=== PATIENT | male | born 1960 | race American Indian/Alaskan Native ===

== ENCOUNTER 2021-03-30 17:54 | Inpatient (IN) | payer MEDICAID ==
--- NOTE | 2021-03-30 19:36 | Emergency Department Report ---
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 Arm appears contracted and on arrival paramedics stated that he was to be evaluated for the contraction. Was a prolonged period of time approximately hour and a half before able to get the patient into the room. On my assessment the patient although unable to speak was able to shake his head yes and no appropriately. He was able to motion that at 5PM he has no longer been able to raise his left arm. He can move his fingers. We have confirmed with the patient's sister over the phone that yesterday he was able to move his left upper extremity with no issue. Code stroke was ordered after my asse ssment. There is no evidence of any cough cold congestion fevers chills nausea or vomiting. Patient did shake his head that he has a mild headache posteriorly. sister states that he walks with a walker and was last seen in the kitchen [id number] and had gotten there unassisted with his walker. - Related Data Home Medications: Home Medications Medication Instructions Recorded Confirmed Last Taken Amlodipine Besylate [Norvasc] 5 mg PO QDAY 03/30/21 03/30/21 Unknown Aspirin [Adult Aspirin] 81 mg PO QDAY 03/30/21 03/30/21 Unknown AtorvaSTATin [Lipitor] 20 mg PO QHS 03/30/21 03/30/21 Unknown Butalb/Acetaminophen/Caffeine 1 each PO QDAY 03/30/21 03/30/21 Unknown [Syhbrl-Oedyxkoz-Zrlt 50-325-40] Citalopram [celeXA] 10 mg PO QDAY 03/30/21 03/30/21 Unknown Mecobalamin [B12 Active] 1,000 mcg PO QDAY 03/30/21 03/30/21 Unknown Metoprolol Xl [Metoprolol 100 mg PO QDAY 03/30/21 03/30/21 Unknown SUCCINATE ER TAB] Oxybutynin [Ditropan] 5 mg PO BID 03/30/21 03/30/21 Unknown lisinopriL [Zestril TAB] 40 mg PO QDAY 03/30/21 03/30/21 Unknown Allergies/Adverse Reactions: Allergies Allergy/AdvReac Type Severity Reaction Status Date / Time No Known Allergies Allergy Verified 03/30/21 20:15 ED Review of Systems ROS: Stated complaint: LEFT ARM CONTRACTION/DIFF MOVING Other details as noted in HPI Comment: All other systems reviewed and negative ED Past Medical Hx - Past Medical History Hx Hypertension: Yes Hx Heart Attack/AMI: Yes Hx Congestive Heart Failure: No Hx Diabetes: No Hx Liver Disease: No Hx Asthma: No Hx COPD: No - Surgical History Hx Coronary Stent: Yes - Social History Smoking Status: Former Smoker - Medications Home Medications: Home Medications Medication Instructions Recorded Confirmed Last Taken Type Amlodipine Besylate [Norvasc] 5 mg PO QDAY 03/30/21 03/30/21 Unknown History Aspirin [Adult Aspirin] 81 mg PO QDAY 03/30/21 03/30/21 Unknown History AtorvaSTATin [Lipitor] 20 mg PO QHS 03/30/21 03/30/21 Unknown History Butalb/Acetaminophen/Caffeine 1 each PO QDAY 03/30/21 03/30/21 Unknown History [Jawcsy-Vgdkooqs-Wkun 50-325-40] Citalopram [celeXA] 10 mg PO QDAY 03/30/21 03/30/21 Unknown History Mecobalamin [B12 Active] 1,000 mcg PO QDAY 03/30/21 03/30/21 Unknown History Metoprolol Xl [Metoprolol 100 mg PO QDAY 03/30/21 03/30/21 Unknown History SUCCINATE ER TAB] Oxybutynin [Ditropan] 5 mg PO BID 03/30/21 03/30/21 Unknown History lisinopriL [Zestril TAB] 40 mg PO QDAY 03/30/21 03/30/21 Unknown History ED Neuro Physical Exam - General Limitations: Language Barrier, Physical Limitation General appearance: alert, in no apparent distress Suspected Stroke: Yes - Head Head exam: Present: atraumatic, normocephalic - Eye Eye exam: Present: normal appearance, PERRL, EOMI - ENT ENT exam: Present: normal orophraynx, mucous membranes moist - Neck Neck exam: Present: normal inspection - Respiratory Respiratory exam: Present: normal lung sounds bilaterally. Absent: respiratory distress, wheezes, rales, rhonchi - Cardiovascular Cardiovascular Exam: Present: regular rate, normal rhythm, normal heart sounds. Absent: systolic murmur, diastolic murmur, rubs, gallop - GI/Abdominal GI/Abdominal exam: Present: soft, normal bowel sounds. Absent: distended, tenderness, guarding, rebound - Rectal Rectal exam: Present: deferred - Extremities Exam Extremities exam: Present: normal inspection - Expanded Upper Extremity Exam Left Neuro motor exam: Present: other (Patient is elbow held at approximately 90 degrees. Appears to have some resistance to extending and flexing passively. Patient is able to spontaneously move all of his fingers.) Vascular: Present: normal capillary refill. Absent: vascular compromise - Back Exam Back exam: Present: normal inspection - Neurological Exam Neurological exam: Present: alert, motor sensory deficit. Absent: CN II-XII intact (mild left facial droop, chronic) - NIHSS Assessment Interval: Baseline 1a. Level of Consciousness: alert/keenly responsive 1b. LOC Questions: answers both correctly 1c. LOC Commands: performs tasks correctly 2. Best Gaze: normal 3. Visual: no visual loss 4. Facial Palsy: minor paralysis 5b. Motor Arm Right: no drift 5a. Motor Arm Left: some gravity effort 6a. Motor Leg Left: no gravity effort 6b. Motor Leg Right: no drift 7. Limb Ataxia: absent 8. Sensory: normal 9. Best Language: severe aphasia 10. Dysarthria: mild/moderate dysarthria 11. Extinction/Inattention: no abnormality Total Score: 9 Stroke Severity: Moderate Stroke - Psychiatric Psychiatric exam: Present: normal affect, normal mood - Skin Skin exam: Present: warm, dry, intact, normal color. Absent: rash ED Course Vital Signs 03/30/21 20:22 Respiratory 18 Rate - Reevaluation(s) Reevaluation #1: 03/30/21 20:15 Patient is motioning that his symptoms started at 5 PM however both the telemetry neurologist and radiologist both agree that he does have acute changes to the CT however they are likely greater than 2 hours (and likely greater than 6 hours). CTA has been ordered. 03/30/21 20:20 per the tele Neuro note # Plan Thrombolytic/Intervention: NOT IV Thrombolytic or IA Intervention Thrombolytic Exclusion: subacute stroke on head CT Intraarterial Exclusion: unfavorable imaging/hypodensity Labs: hemoglobin A1c lipid panel Imaging: (urgency: STAT): CT Angiogram Head and CT Angiogram Neck AND call back with results if abnormal Imaging: (urgency: routine): MRI Brain without contrast Diagnostic Test: echo with bubble study Therapy/Evaluation: NPO until swallow evaluation PT/OT evaluation speech/swallow consultation Medication: aspirin 325 mg daily start statin with goal of LDL < 70 Other: permissive hypertension telemetry monitoring I have discussed my recommendations with the referring provider Disposition: admit Reevaluation #2: 03/30/21 22:[address] angio of the head neck returned I spoke with Dr. SINGER with [facility] is interventional team. The CTAs were reviewed. Interventionalists believe that it would cause more harm than good doing an intervention on the patient since his internal carotid. Still stenosed. Patient to stay here for medical management. - Lab Data Result diagrams: 03/30/21 19:58 03/30/21 19:58 Lab Results 03/30/21 03/30/21 03/30/21 Range/Units 19:58 19:58 19:58 WBC 11.4 H (4.5-11.0) K/mm3 RBC 4.48 (3.65-5.03) M/mm3 Hgb 14.1 (11.8-15.2) gm/dl Hct 42.2 (35.5-45.6) % MCV 94 (84-94) fl MCH 31 (28-32) pg MCHC 33 (32-34) % RDW 13.8 (13.2-15.2) % Plt Count 209 (140-440) K/mm3 Lymph % (Auto) 27.2 (13.4-35.0) % Floyd % (Auto) 10.1 H (0.0-7.3) % Eos % (Auto) 0.0 (0.0-4.3) % Baso % (Auto) 0.3 (0.0-1.8) % Lymph # (Auto) 3.1 (1.2-5.4) K/mm3 Floyd # (Auto) 1.2 H (0.0-0.8) K/mm3 Eos # (Auto) 0.0 (0.0-0.4) K/mm3 Baso # (Auto) 0.0 (0.0-0.1) K/mm3 Seg Neutrophils % 62.4 (40.0-70.0) % Seg Neutrophils # 7.1 (1.8-7.7) K/mm3 PT 14.7 (12.2-14.9) Sec. INR 1.09 (0.87-1.13) APTT 27.6 (24.2-36.6) Sec. Thrombin Time 18.9 (15.1-19.6) Sec. Sodium 138 (137-145) mmol/L Potassium 4.7 (3.6-5.0) mmol/L Chloride 102.5 (98-107) mmol/L Carbon Dioxide 24 (22-30) mmol/L Anion Gap 16 mmol/L BUN 31 H (9-20) mg/dL Creatinine 1.4 H (0.8-1.3) mg/dL Estimated GFR > 60 ml/min BUN/Creatinine Ratio 22 % Glucose 95 (75-100) mg/dL POC Glucose (70-105) mg/dL Calcium 8.9 (8.4-10.2) mg/dL Total Creatine Kinase (55-170) units/L CK-MB (CK-2) (0.0-4.0) ng/mL CK-MB (CK-2) Rel Index (0-4) Troponin T (0.00-0.029) ng/mL 03/30/21 03/30/21 Range/Units 19:58 19:59 WBC (4.5-11.0) K/mm3 RBC (3.65-5.03) M/mm3 Hgb (11.8-15.2) gm/dl Hct (35.5-45.6) % MCV (84-94) fl MCH (28-32) pg MCHC (32-34) % RDW (13.2-15.2) % Plt Count (140-440) K/mm3 Lymph % (Auto) (13.4-35.0) % Floyd % (Auto) (0.0-7.3) % Eos % (Auto) (0.0-4.3) % Baso % (Auto) (0.0-1.8) % Lymph # (Auto) (1.2-5.4) K/mm3 Floyd # (Auto) (0.0-0.8) K/mm3 Eos # (Auto) (0.0-0.4) K/mm3 Baso # (Auto) (0.0-0.1) K/mm3 Seg Neutrophils % (40.0-70.0) % Seg Neutrophils # (1.8-7.7) K/mm3 PT (12.2-14.9) Sec. INR (0.87-1.13) APTT (24.2-36.6) Sec. Thrombin Time (15.1-19.6) Sec. Sodium (137-145) mmol/L Potassium (3.6-5.0) mmol/L Chloride (98-107) mmol/L Carbon Dioxide (22-30) mmol/L Anion Gap mmol/L BUN (9-20) mg/dL Creatinine (0.8-1.3) mg/dL Estimated GFR ml/min BUN/Creatinine Ratio % Glucose (75-100) mg/dL POC Glucose 90 (70-105) mg/dL Calcium (8.4-10.2) mg/dL Total Creatine Kinase 498 H (55-170) units/L CK-MB (CK-2) 5.0 H (0.0-4.0) ng/mL CK-MB (CK-2) Rel Index 1.0 (0-4) Troponin T < 0.010 (0.00-0.029) ng/mL - EKG Data -: EKG Interpreted by 03/30/21 20:20 EKG shows a sinus rhythm rate 84. [place] is normal. Intervals show slight prolongation to the [place]. No ST segment elevation or depressions. Time interpretation 2004 - Radiology Data CT head/brain wo con INDICATION / CLINICAL INFORMATION: 60 years Male; code stroke. TECHNIQUE: Routine CT head without contrast. All CT scans at this location are performed using CT dose reduction for ALARA by means of automated exposure control. COMPARISON: None. FINDINGS: BRAIN / INTRACRANIAL CONTENTS: There is extensive edema involving anterior right frontal lobe, particularly along the medial aspect within the anterior cerebral artery distribution indicative of acute infarct. There is associated mass effect with mild sulcal effacement. There foci of encephalomalacia involving the more superior right frontal lobe indicative of old infarcts at. Focus is also seen along the genu of the right corpus of callosum. There is an old lacunar infarct within the right basal ganglia. There are also chronic appearing ischemic changes involving the posterior left frontal lobe at. There is mild to moderate cerebral atrophy for age with mild prominence of the ventricular system. There is no clear CT evidence of acute intracranial hemorrhage. ORBITS: There is a defect involving medial right orbital wall which may be developmental or related to previous trauma. SINUSES / MASTOIDS: There is mild mucosal thickening within the visualized posterior left maxillary sinus with thickening of the lesser sinus wall indicative of chronic inflammatory process at. Otherwise, the visualized paranasal sinuses are clear. CRANIOCERVICAL JUNCTION: No significant abnormality. ADDITIONAL FINDINGS: There is notable atherosclerotic calcification within the distal ICAs. IMPRESSION: 1. There is extensive edema involving the anteromedial right frontal lobe keiht cative of evolving infarct along the right LACEY distribution as detailed above. 2. There is otherwise microvascular angiopathy with multiple old infarcts, also a described above. There is no clear CT evidence of acute intracranial hemorrhage. The study was specified as code stroke and called emergently to Dr. Foster in the ER at 7:11 PM Central standard time. Signer Name: Kiran De Jesus MD Signed: 03/30/2021 8:13 PM Workstation Name: [id number] Ordering Physician: ALLISON FOSTER MD Date of Service: 03/30/21 Procedure(s): CT angio neck Accession Number(s): [id number] cc: ALLISON FOSTER MD CT angio neck INDICATION / CLINICAL INFORMATION: 60 years Male; left arm weakness. TECHNIQUE: Thin cut axial images obtained through the head during IV bolus contrast administration. Sagittal, coronal, and 3 plane MIP reconstructions performed by the technologist. NASCET type criteria used evaluate stenoses. All CT scans at this location are performed using CT dose reduction for ALARA by means of automated exposure control. COMPARISON: None available. FINDINGS: CAROTID ARTERIES: There is notable tapering of the proximal right ICA with 1.2 cm segment of marked stenosis. Additionally, there is near complete occlusion at the level just distal to the right car otid bulb. However, there is a flow within the more distal segments though there is notable reduced caliber. There is milder irregularity of the right carotid bifurcation. There is atherosclerotic calcification involving left carotid bifurcation without significant stenosis by NASCET criteria. The more distal cervical left ICA is unremarkable. VERTEBRAL ARTERIES: The left vertebral artery appears to arise directly from the aortic arch; a developmental variant. 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 The right vertebral artery is clearly dominant. There are scattered foci of calcification within the right vertebral artery without significant focal stenosis. ARCH: There is developmental tortuosity of the arch of vessels as well as common origin of the brachiocephalic and left common carotid arteries. However, there is no significant focal stenosis. ADDITIONAL FINDINGS: Remainder of the surrounding soft tissues are grossly normal. IMPRESSION: There is marked stenosis involving proximal right ICA with decreased flow within the more distal segments as detailed above. There is atherosclerotic calcification involving left carotid bifurcation without ossific and stenosis by NASCET criteria. 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 Signer Name: Kiran De Jesus MD Signed: 03/30/2021 8:36 PM Workstation Name: [id number] CT angio head INDICATION / CLINICAL INFORMATION: 60 years Male; left arm weakness. TECHNIQUE: Thin cut axial images obtained through the head during IV bolus contrast administration. Sagittal, coronal, and 3 plane MIP reconstructions performed by the technologist. NASCET type criteria used evaluate stenoses. Automated exposure control utilized for radiation reduction purposes. COMPARISON: None available. FINDINGS: INTERNAL CAROTID ARTERIES: There is occlusion of the distal right ICA with notable atherosclerotic calcification. Faint contrast with notable decrease caliber seen within the more proximal cavernous and petrous segments of the right ICA. There is mild atherosclerotic calcification involving distal left ICA with mild narrowing of the communicating segment. VERTEBROBASILAR SYSTEM: There is developmental hypoplasia of the visualized distal left vertebral artery which terminates in PICA, a developmental variant. There is milder atherosclerotic plaque involving intracranial right vertebral artery with mild stenosis at. There is no significant focal narrowing involving the basilar artery. CEREBRAL ARTERIES: There is occlusion of the right LACEY with large developing infarct which correlates with the earlier CT demonstrating extensive edema within the right LACEY distribution. There is also occlusion of the proximal right MCA at. However, collateral of flow is noted within the right insular branches. There is marked stenosis involving the M1 segment of the left MCA with suggestion of focal occlusion along the mid to distal aspect. However, this finding may be a chronic given the prominence of collateral vessels in this region and correlation would be needed at. There is notable irregularity of the visualized left insular branches. There is developmental hypoplasia of the P1 segment of the left BLUEPRINT BLOCKER. Otherwise, there is irregularity of the posterior cerebral arteries indicative of mild atherosclerotic disease. Similar findings involve the left LACEY without significant focal stenosis. ANEURYSM: None identified. ADDITIONAL FINDINGS: Remainder of the surrounding soft tissues are grossly normal. IMPRESSION: There is occlusion of the distal right ICA and LACEY with evolving infarct as detailed above. The findings are also compatible with occlusion of the proximal right MCA with collateral flow distally as described. There is marked stenosis involving the left MCA with notable adjacent a c ollateral vessels. 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 A small focal narrowing involving proximal intracranial right vertebral artery. Critical Care Time: Yes (40) Critical care attestation.: If time is entered above; I have spent that time in minutes in the direct care of this critically ill patient, excluding procedure time. ED Disposition Clinical Impression: Acute CVA (cerebrovascular accident) Disposition: [id number] OP ADMIT IP TO THIS HOSP Is pt being admited?: Yes Does the pt Need Aspirin: No Condition: Stable Time of Disposition: 22:31
--- NOTE | 2021-03-30 19:52 | Consultation ---
History of Present Illness History of present illness: [facility] Consult Note # Demographics Consult Type: Acute Stroke Level 1 (0-4.5 hrs) Patient Location: Emergency Room First Name: Andrade Last Name: aPul Date of : 1960 Age: 60 Gender: Male Time of Initial Page ( Time): 03/30/2021, 19:36 Time of Return Call ( Time): 03/30/2021, 19:36 # HPI History: 60 year-old male presents with left arm weakness. Symptoms reportedly began at [address] revealed a subacute right frontal ischemic stroke. # Scores Time of exam and NIHSS ( Time): 03/30/2021, 19:39 Level of Consciousness 1a: [0] = Alert; keenly responsive LOC Questions 1b: [0] = Answers both questions correctly LOC Commands 1c: [0] = Performs both tasks correctly Best Gaze 2: [0] = Normal Visual 3: [0] = No visual loss Facial Palsy 4: [1] = Minor paralysis Motor Arm Left 5a: [1] = Drift Motor Arm Right 5b: [0] = No drift Motor Leg Left 6a: [2] = Some effort against gravity Motor Leg Right 6b: [0] = No drift Limb Ataxia 7: [0] = Absent Sensory 8: [0] = Normal Best Language 9: [1] = Zhih-is-gchyuqyi aphasia Dysarthria 10: [2] = Severe dysarthria Extinction and Inattention 11: [0] = No abnormality NIHSS Total: 7 # Exam Vitals: vital signs reviewed # PMH-FH-SH Past Medical History: stroke Medications: aspirin # Data Head CT: subacute ischemic stroke # Assessment Impression: Ischemic Stroke (Subacute) # Plan Thrombolytic/Intervention: NOT IV Thrombolytic or IA Intervention Thrombolytic Exclusion: subacute stroke on head CT Intraarterial Exclusion: unfavorable imaging/hypodensity Labs: hemoglobin A1c lipid panel Imaging: (urgency: STAT): CT Angiogram Head and CT Angiogram Neck AND call back with results if abnormal Imaging: (urgency: routine): MRI Brain without contrast Diagnostic Test: echo with bubble study Therapy/Evaluation: NPO until swallow evaluation PT/OT evaluation speech/swallow consultation Medication: aspirin 325 mg daily start statin with goal of LDL < 70 Other: permissive hypertension telemetry monitoring I have discussed my recommendations with the referring provider Disposition: admit Medications and Allergies Allergies Allergy/AdvReac Type Severity Reaction Status Date / Time No Known Allergies Allergy Verified 06/23/14 08:41 Home Medications Medication Instructions Recorded Confirmed Last Taken Type Aspirin [Baby Aspirin] 81 mg PO DAILY 02/15/14 06/12/15 06/11/15 History Atorvastatin (Nf) [Lipitor] 10 mg PO DAILY 02/15/14 06/12/15 06/12/15 05:00 History Citalopram Hydrobromide [celeXA] 20 mg PO HS 02/15/14 06/12/15 06/11/15 History Famotidine 20 mg PO BID 02/15/14 06/12/15 06/11/15 History Glycopyrrolate 1 mg PO DAILY 02/15/14 06/12/15 06/11/15 History Propafenone HCl 225 mg PO BID 02/15/14 06/12/15 06/11/15 History Rivaroxaban [Xarelto] 20 mg PO DAILY 02/15/14 06/12/15 06/11/15 History Sotalol HCl 80 mg PO Q12HR 02/15/14 06/12/15 06/11/15 History Zolpidem (Nf) [Ambien] 10 mg PO HS 02/15/14 06/12/15 06/11/15 History lisinopriL [Zestril TAB] 20 mg PO DAILY 02/15/14 06/12/15 06/12/15 05:00 History
[2021-03-30 20:05] LABS: Basophils % (Auto) 0.3 % (0.0-1.8); Hematocrit 42.2 % (35.5-45.6); Hemoglobin 14.1 gm/dl (11.8-15.2); Lymphocytes # (Auto) 3.1 K/mm3 (1.2-5.4); Lymphocytes % (Auto) 27.2 % (13.4-35.0); Mean Corpuscular HGB Conc 33 % (32-34); Mean Corpuscular Volume 94 fl (84-94); Monocytes # (Auto) 1.2 K/mm3 (0.0-0.8); Monocytes % (Auto) 10.1 % (0.0-7.3); Platelet Count 209 K/mm3 (140-440); Red Blood Count 4.48 M/mm3 (3.65-5.03); Red Cell Distribution Width 13.8 % (13.2-15.2)
[2021-03-30 20:16] LABS: BUN/Creatinine Ratio 22; Blood Urea Nitrogen 31 mg/dL (9-20); Calcium 8.9 mg/dL (8.4-10.2); Hemolysis Index 24
[2021-03-30] MEDS ORDERED: KETOROLAC 30 MG/1 ML INJ IV ONE (20:16)
--- NOTE | 2021-03-30 20:17 | Cat Scan Report ---
CT head/brain wo con INDICATION / CLINICAL INFORMATION: 60 years Male; code stroke. TECHNIQUE: Routine CT head without contrast. All CT scans at this location are performed using CT dos e reduction for ALARA by means of automated exposure control. COMPARISON: None. FINDINGS: BRAIN / INTRACRANIAL CONTENTS: There is extensive edema involving anterior right frontal lobe, partic ularly along the medial aspect within the anterior cerebral artery distribution indicative of acute i nfarct. There is associated mass effect with mild sulcal effacement. There foci of encephalomalacia i nvolving the more superior right frontal lobe indicative of old infarcts at. Focus is also seen along the genu of the right corpus of callosum. There is an old lacunar infarct within the right basal ganglia. There are also chronic appearing isch emic changes involving the posterior left frontal lobe at. There is mild to moderate cerebral atrophy for age with mild prominence of the ventricular system. There is no clear CT evidence of acute intra cranial hemorrhage. ORBITS: There is a defect involving medial right orbital wall which may be developmental or related t o previous trauma. SINUSES / MASTOIDS: There is mild mucosal thickening within the visualized posterior left maxillary s inus with thickening of the lesser sinus wall indicative of chronic inflammatory process at. Otherwis e, the visualized paranasal sinuses are clear. CRANIOCERVICAL JUNCTION: No significant abnormality. ADDITIONAL FINDINGS: There is notable atherosclerotic calcification within the distal ICAs. IMPRESSION: 1. There is extensive edema involving the anteromedial right frontal lobe indicative of evolving infa rct along the right LACEY distribution as detailed above. 2. There is otherwise microvascular angiopathy with multiple old infarcts, also a described above. Th ere is no clear CT evidence of acute intracranial hemorrhage. The study was specified as code stroke and called emergently to Dr. Foster in the ER at 7:11 PM [facility] standard time. Signer Name: Kiran De Jesus MD Signed: 03/30/2021 8:13 PM Workstation Name: [id number]
[2021-03-30 20:21] LABS: INR 1.09 (0.87-1.13)
[2021-03-30 20:23] LABS: Partial Thromboplastin Time 27.6 Sec. (24.2-36.6)
[2021-03-30 20:24] LABS: Thrombin Time 18.9 Sec. (15.1-19.6)
--- NOTE | 2021-03-30 20:40 | Cat Scan Report ---
CT angio neck INDICATION / CLINICAL INFORMATION: 60 years Male; left arm weakness. TECHNIQUE: Thin cut axial images obtained through the head during IV bolus contrast administration. S agittal, coronal, and 3 plane MIP reconstructions performed by the technologist. NASCET type criteria used evaluate stenoses. All CT scans at this location are performed using CT dose reduction for ALAR A by means of automated exposure control. COMPARISON: None available. FINDINGS: CAROTID ARTERIES: There is notable tapering of the proximal right ICA with 1.2 cm segment of marked s tenosis. Additionally, there is near complete occlusion at the level just distal to the right carotid bulb. However, there is a flow within the more distal segments though there is notable reduced calib er. There is milder irregularity of the right carotid bifurcation. There is atherosclerotic calcification involving left carotid bifurcation without significant stenosi s by NASCET criteria. The more distal cervical left ICA is unremarkable. VERTEBRAL ARTERIES: The left vertebral artery appears to arise directly from the aortic arch; a devel opmental variant. 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 The right vertebral artery is clearly dominant. There are scattered f oci of calcification within the right vertebral artery without significant focal stenosis. ARCH: There is developmental tortuosity of the arch of vessels as well as common origin of the brachi ocephalic and left common carotid arteries. However, there is no significant focal stenosis. ADDITIONAL FINDINGS: Remainder of the surrounding soft tissues are grossly normal. IMPRESSION: There is marked stenosis involving proximal right ICA with decreased flow within the more distal segm ents as detailed above. There is atherosclerotic calcification involving left carotid bifurcation without ossific and stenosi s by NASCET criteria. 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 Signer Name: Kiran De Jesus MD Signed: 03/30/2021 8:36 PM Workstation Name: [id number]
--- NOTE | 2021-03-30 20:49 | Cat Scan Report ---
CT angio head INDICATION / CLINICAL INFORMATION: 60 years Male; left arm weakness. TECHNIQUE: Thin cut axial images obtained through the head during IV bolus contrast administration. S agittal, coronal, and 3 plane MIP reconstructions performed by the technologist. NASCET type criteria used evaluate stenoses. Automated exposure control utilized for radiation reduction purposes. COMPARISON: None available. FINDINGS: INTERNAL CAROTID ARTERIES: There is occlusion of the distal right ICA with notable atherosclerotic ca lcification. Faint contrast with notable decrease caliber seen within the more proximal cavernous and petrous segments of the right ICA. There is mild atherosclerotic calcification involving distal left ICA with mild narrowing of the comm unicating segment. VERTEBROBASILAR SYSTEM: There is developmental hypoplasia of the visualized distal left vertebral art angelo which terminates in PICA, a developmental variant. There is milder atherosclerotic plaque involvi ng intracranial right vertebral artery with mild stenosis at. There is no significant focal narrowing involving the basilar artery. CEREBRAL ARTERIES: There is occlusion of the right LACEY with large developing infarct which correlates with the earlier CT demonstrating extensive edema within the right LACEY distribution. There is also o cclusion of the proximal right MCA at. However, collateral of flow is noted within the right insular branches. There is marked stenosis involving the M1 segment of the left MCA with suggestion of focal occlusion along the mid to distal aspect. However, this finding may be a chronic given the prominence of collat eral vessels in this region and correlation would be needed at. There is notable irregularity of the visualized left insular branches. There is developmental hypoplasia of the P1 segment of the left [employer]. Otherwise, there is irregularity of the posterior cerebral arteries indicative of mild atherosclerotic disease. Similar findings invo lve the left LACEY without significant focal stenosis. ANEURYSM: None identified. ADDITIONAL FINDINGS: Remainder of the surrounding soft tissues are grossly normal. IMPRESSION: There is occlusion of the distal right ICA and LACEY with evolving infarct as detailed above. The findings are also compatible with occlusion of the proximal right MCA with collateral flow distal ly as described. There is marked stenosis involving the left MCA with notable adjacent a collateral vessels. 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 A small foca l narrowing involving proximal intracranial right vertebral artery. Signer Name: Kiran De Jesus MD Signed: 03/30/2021 8:45 PM Workstation Name: [id number]
[2021-03-30] MEDS ORDERED: MORPHINE 2 MG/1 ML INJ IV PRN (22:48)
[2021-03-30] MEDS ORDERED: MAGNESIUM HYDROXIDE (MOM) ORAL LIQD UDC PO PRN ×2 (22:48)
[2021-03-30] MEDS ORDERED: ACETAMINOPHEN 325 MG TAB PO PRN (22:48)
[2021-03-30] MEDS ORDERED: PROMETHAZINE 25 MG RECT SUPP PR PRN (22:48)
[2021-03-30] MEDS ORDERED: ONDANSETRON 4 MG/2 ML INJ IV PRN ×2 (22:48)
[2021-03-30] MEDS ORDERED: METOCLOPRAMIDE 10 MG TAB PO PRN (22:48)
--- NOTE | 2021-03-30 23:03 | History and Physical Report ---
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 Patient was able to make gestures with his hands during this history and physical but not able to express himself. Last well-known time was about 7:30 AM. Patient however indicates that his left-sided weakness started at about 5 PM today. She denies any fever or chills, no nausea vomiting, no chest pain or shortness of breath, no abdominal pain, no diarrhea. He has had some headache which he indicates was more in his occipital region. He denies any sick contacts and no recent travel. Denies any contact with anyone with COVID-19. Patient's sister who was by the bedside was able to also provide some inform ation during this history and physical. Work-up in the emergency room today, CT scan of the head shows extensive edema involving the anteromedial right frontal lobe indicating of of evolving infarct along the right LACEY distribution. There is evidence of microvascular angiopathy with multiple old infarcts. No evidence of acute intracranial hemorrhage. CTA of the head and neck reveals occlusion of the distal right ICA and LACEY with evolving infarct .The findings are compatible with occlusion of the proximal right MCA with collateral flow distally. There is marked stenosis involving the left MCA with notable active since collateral vessels. Interventional radiology was consulted at [facility] by the ER physician. Patient is not a good candidate for any surgical intervention and the recommendation is to continue medical management in this facility. Past History Past Medical History: CAD (H/O [place]), hypertension Past Surgical History: PTCA Social history: smoking (Former Smoker) Family history: no significant family history Medications and Allergies Allergies Allergy/AdvReac Type Severity Reaction Status Date / Time No Known Allergies Allergy Verified 03/30/21 20:15 Home Medications Medication Instructions Recorded Confirmed Last Taken Type Amlodipine Besylate [Norvasc] 5 mg PO QDAY 03/30/21 03/30/21 Unknown History Aspirin [Adult Aspirin] 81 mg PO QDAY 03/30/21 03/30/21 Unknown History AtorvaSTATin [Lipitor] 20 mg PO QHS 03/30/21 03/30/21 Unknown History Butalb/Acetaminophen/Caffeine 1 each PO QDAY 03/30/21 03/30/21 Unknown History [Hhfsqi-Kippvrgx-Ipsq 50-325-40] Citalopram [celeXA] 10 mg PO QDAY 03/30/21 03/30/21 Unknown History Mecobalamin [B12 Active] 1,000 mcg PO QDAY 03/30/21 03/30/21 Unknown History Metoprolol Xl [Metoprolol 100 mg PO QDAY 03/30/21 03/30/21 Unknown History SUCCINATE ER TAB] Oxybutynin [Ditropan] 5 mg PO BID 03/30/21 03/30/21 Unknown History lisinopriL [Zestril TAB] 40 mg PO QDAY 03/30/21 03/30/21 Unknown History Active Meds: Active Medications Acetaminophen (Acetaminophen 325 Mg Tab) 650 mg PO Q4H PRN PRN Reason: Pain MILD(1-3)/Fever >100.5/CANTU Acetaminophen (Acetaminophen 325 Mg Tab) 650 mg PO Q4H PRN PRN Reason: Pain, Mild (1-3) Aspirin (Aspirin 325 Mg Tab) 325 mg PO QDAY [facility]OR[facility] Atorvastatin Calcium (Atorvastatin 40 Mg Tab) 40 mg PO QHS [facility] Bisacodyl (Bisacodyl 10 Mg Rect Supp) 10 mg ND QDAY PRN PRN Reason: Constipation Heparin Sodium (Porcine) (Heparin 5,000 Unit/1 Ml Vial) 5,000 unit SUB-Q Q8HR LORI Magnesium Hydroxide (Magnesium Hydroxide (Mom) Oral Liqd Udc) 30 ml PO Q4H PRN PRN Reason: Constipation Magnesium Hydroxide (Magnesium Hydroxide (Mom) Oral Liqd Udc) 30 ml PO Q4H PRN PRN Reason: Constipation Metoclopramide HCl (Metoclopramide 10 Mg Tab) 10 mg PO Q6H PRN PRN Reason: Nausea And Vomiting Morphine Sulfate (Morphine 2 Mg/1 Ml Inj) 2 mg IV Q4H PRN PRN Reason: Pain, Moderate (4-6) Ondansetron HCl (Ondansetron 4 Mg/2 Ml Inj) 4 mg IV Q8H PRN PRN Reason: Nausea And Vomiting Ondansetron HCl (Ondansetron 4 Mg/2 Ml Inj) 4 mg IV Q8H PRN PRN Reason: Nausea And Vomiting Promethazine HCl (Promethazine 25 Mg Rect Supp) 25 mg ND Q6H PRN PRN Reason: Nausea And Vomiting Sodium Chloride (Sodium Chloride 0.9% 10 Ml Flush Syringe) 10 ml IV BID LORI Sodium Chloride (Sodium Chloride 0.9% 10 Ml Flush Syringe) 10 ml IV PRN PRN PRN Reason: LINE FLUSH Sodium Chloride (Sodium Chloride 0.9% 10 Ml Flush Syringe) 10 ml INJ PRN PRN PRN Reason: LINE FLUSH Review of Systems Constitutional: no fever, no chills Ears, nose, mouth and throat: no nasal congestion, no sore throat Cardiovascular: no chest pain, no palpitations Respiratory: no cough, no shortness of breath Gastrointestinal: no abdominal pain, no nausea, no vomiting, no diarrhea Genitourinary Male: no dysuria, no hematuria, no nocturia Musculoskeletal: no neck pain, no low back pain Integumentary: no rash, no pruritis Neurological: weakness (Left sided weakness), no headaches, no confusion Psychiatric: no anxiety, no depression Endocrine: no polyphagia, no polydipsia, no polyuria, no nocturia Exam - Constitutional Vitals: Temp Pulse Resp BP Pulse Ox 18 03/30/21 20:22 General appearance: Present: no acute distress, well-nourished - EENT Eyes: Present: PERRL, EOM intact. Absent: scleral icterus ENT: hearing intact, clear oral mucosa, dentition normal - Neck Neck: Present: supple, normal ROM - Respiratory Respiratory effort: normal Respiratory: bilateral: CTA - Cardiovascular Rhythm: regular Heart Sounds: Present: S1 & S2. Absent: gallop, systolic murmur, diastolic murmur, rub, click - Extremities Extremities: no ischemia, pulses intact, pulses symmetrical, No edema, normal temperature, normal color, Full ROM Peripheral Pulses: within normal limits - Abdominal General gastrointestinal: Present: soft, non-tender, non-distended, normal bowel sounds. Absent: mass - Integumentary Integumentary: Present: clear, warm, dry, normal turgor. Absent: rash - Musculoskeletal Musculoskeletal: left sided weakness - Psychiatric Psychiatric: appropriate mood/affect, intact judgment & insight, cooperative - Neurologic Neurologic: CNII-XII intact - Additional findings Additional findings: Aphasic. HEART Score - HEART Score Troponin: Troponin T < 0.010 ng/mL (0.00-0.029) 03/30/21 19:58 Results - Labs CBC & Chem 7: 03/30/21 19:58 03/30/21 19:58 Labs: Abnormal lab results 03/30/21 03/30/21 03/30/21 Range/Units 19:58 19:58 19:58 WBC 11.4 H (4.5-11.0) K/mm3 [place] % (Auto) 10.1 H (0.0-7.3) % [place] # (Auto) 1.2 H (0.0-0.8) K/mm3 BUN 31 H (9-20) mg/dL Creatinine 1.4 H (0.8-1.3) mg/dL Total Creatine Kinase 498 H (55-170) units/L CK-MB (CK-2) 5.0 H (0.0-4.0) ng/mL Assessment and Plan - Patient Problems (1) Acute CVA (cerebrovascular accident) Current Visit: Yes Status: Acute Plan to address problem: Patient admitted and placed on daily aspirin and statin. We will request neurology evaluation and recommendation. We will schedule patient for MRI of the brain. (2) Hypertension Current Visit: Yes Status: Acute Plan to address problem: We will resume routine home medications and monitor vital signs closely. (3) DVT prophylaxis Current Visit: Yes Status: Acute Plan to address problem: Patient placed on subcutaneous heparin. (4) Full code status Current Visit: Yes Status: Acute Plan to address problem: Patient is full code.
[2021-03-31] MEDS: ACETAMINOPHEN 325 MG TAB PO PRN (06:00)
[2021-03-31] MEDS: HEPARIN 5,000 UNIT/1 ML VIAL SUB-Q SCH ×3 (06:01→21:28)
[2021-03-31 06:10] LABS: Basophils % (Auto) 0.2 % (0.0-1.8); Eosinophils % (Auto) 0.2 % (0.0-4.3); Lymphocytes # (Auto) 3.6 K/mm3 (1.2-5.4); Lymphocytes % (Auto) 34.6 % (13.4-35.0); Mean Corpuscular HGB Conc 34 % (32-34); Mean Corpuscular Volume 94 fl (84-94); Monocytes % (Auto) 9.5 % (0.0-7.3); Platelet Count 238 K/mm3 (140-440); Red Blood Count 4.71 M/mm3 (3.65-5.03)
[2021-03-31 06:16] LABS: INR 0.98 (0.87-1.13)
[2021-03-31 06:32] LABS: BUN/Creatinine Ratio 23; Blood Urea Nitrogen 27 mg/dL (9-20); Chol/HDL Ratio 2.93 %; HDL Cholesterol 65 mg/dL (40-59); Hemolysis Index 148; LDL Cholesterol,Direct 118 mg/dL (50-130)
--- NOTE | 2021-03-31 08:32 | Progress Note ---
Assessment and Plan Assessment and plan: Acute CVA. Hypertension History of CAD/PTCA. 03/31/2021. CT scan of the head shows extensive edema involving the anteromedial right frontal lobe indicative of evolving infarct along the right LACEY distr ibution. There is evidence of microvascular angiopathy with multiple old infarcts. No evidence of acute intracranial hemorrhage. CTA of the head and neck reveals occlusion of the distal right ICA and LACEY with evolving infarct. The findings are compatible with occlusion of the proximal right MCA with collateral flow distally. There is marked stenosis involving the left MCA with notable active since collateral vessels. Neurology consultation. PT/OT/ST. Continue aspirin and statin. History Interval history: No new issues overnight. Hospitalist Physical - Constitutional Vitals: Temp Pulse Resp BP Pulse Ox 98.8 F 80 18 128/86 98 03/31/21 04:01 03/31/21 04:01 03/31/21 04:01 03/31/21 04:01 03/31/21 04:01 General appearance: Present: no acute distress, well-nourished - EENT Eyes: Present: PERRL, EOM intact ENT: hearing intact, clear oral mucosa, dentition normal - Neck Neck: Present: supple, normal ROM - Respiratory Respiratory effort: normal Respiratory: bilateral: CTA - Cardiovascular Rhythm: regular Heart Sounds: Present: S1 & S2. Absent: gallop, rub - Extremities Extremities: no ischemia, No edema, Full ROM - Abdominal General gastrointestinal: soft, non-tender, non-distended, normal bowel sounds - Integumentary Integumentary: Present: clear, warm, dry - Neurologic Neurologic: CNII-XII intact, moves all extremities HEART Score - HEART Score Troponin: Troponin T < 0.010 ng/mL (0.00-0.029) 03/30/21 19:58 Results - Labs CBC & Chem 7: 03/31/21 05:11 03/31/21 05:11 Labs: Laboratory Last Values WBC 10.5 K/mm3 (4.5-11.0) 03/31/21 05:11 RBC 4.71 M/mm3 (3.65-5.03) 03/31/21 05:11 Hgb 15.0 gm/dl (11.8-15.2) 03/31/21 05:11 Hct 44.0 % (35.5-45.6) 03/31/21 05:11 MCV 94 fl (84-94) 03/31/21 05:11 MCH 32 pg (28-32) 03/31/21 05:11 MCHC 34 % (32-34) 03/31/21 05:11 RDW 14.0 % (13.2-15.2) 03/31/21 05:11 Plt Count 238 K/mm3 (140-440) 03/31/21 05:11 Lymph % (Auto) 34.6 % (13.4-35.0) 03/31/21 05:11 Webb % (Auto) 9.5 % (0.0-7.3) H 03/31/21 05:11 Eos % (Auto) 0.2 % (0.0-4.3) 03/31/21 05:11 Baso % (Auto) 0.2 % (0.0-1.8) 03/31/21 05:11 Lymph # (Auto) 3.6 K/mm3 (1.2-5.4) 03/31/21 05:11 Webb # (Auto) 1.0 K/mm3 (0.0-0.8) H 03/31/21 05:11 Eos # (Auto) 0.0 K/mm3 (0.0-0.4) 03/31/21 05:11 Baso # (Auto) 0.0 K/mm3 (0.0-0.1) 03/31/21 05:11 Seg Neutrophils % 55.5 % (40.0-70.0) 03/31/21 05:11 Seg Neutrophils # 5.8 K/mm3 (1.8-7.7) 03/31/21 05:11 PT 13.6 Sec. (12.2-14.9) 03/31/21 05:11 INR 0.98 (0.87-1.13) 03/31/21 05:11 APTT 27.6 Sec. (24.2-36.6) 03/30/21 19:58 Thrombin Time 18.9 Sec. (15.1-19.6) 03/30/21 19:58 Sodium 142 mmol/L (137-145) 03/31/21 05:11 Potassium 5.0 mmol/L (3.6-5.0) 03/31/21 05:11 Chloride 101.9 mmol/L (98-107) 03/31/21 05:11 Carbon Dioxide 25 mmol/L (22-30) 03/31/21 05:11 Anion Gap 20 mmol/L 03/31/21 05:11 BUN 27 mg/dL (9-20) H 03/31/21 05:11 Creatinine 1.2 mg/dL (0.8-1.3) 03/31/21 05:11 Estimated GFR > 60 ml/min 03/31/21 05:11 BUN/Creatinine Ratio 23 % 03/31/21 05:11 Glucose 89 mg/dL (75-100) 03/31/21 05:11 POC Glucose 90 mg/dL (70-105) 03/30/21 19:59 Calcium 10.0 mg/dL (8.4-10.2) 03/31/21 05:11 Total Creatine Kinase 498 units/L (55-170) H 03/30/21 19:58 CK-MB (CK-2) 5.0 ng/mL (0.0-4.0) H 03/30/21 19:58 CK-MB (CK-2) Rel Index 1.0 (0-4) 03/30/21 19:58 Troponin T < 0.010 ng/mL (0.00-0.029) 03/30/21 19:58 Triglycerides 50 mg/dL (2-149) 03/31/21 05:11 Cholesterol 191 mg/dL (50-199) 03/31/21 05:11 LDL Cholesterol Direct 118 mg/dL (50-130) 03/31/21 05:11 HDL Cholesterol 65 mg/dL (40-59) H 03/31/21 05:11 Cholesterol/HDL Ratio 2.93 % 03/31/21 05:11 Sam/IV: Voiding Method Condom Catheter Active Medications - Current Medications Current Medications: Generic Name Dose Route Start Last Admin Trade Name Freq PRN Reason Stop Dose Admin Acetaminophen 650 mg 03/30/21 22:48 03/31/21 06:00 Acetaminophen 325 Mg Tab PO 650 mg Q4H PRN Administration Pain, Mild (1-3) Aspirin 325 mg 03/31/21 10:00 Aspirin 325 Mg Tab PO QDAY [facility] Atorvastatin Calcium 40 mg 03/31/21 22:00 Atorvastatin 40 Mg Tab PO QHS [facility] Bisacodyl 10 mg 03/30/21 22:48 Bisacodyl 10 Mg Rect Supp CO QDAY PRN Constipation Heparin Sodium (Porcine) 5,000 unit 03/31/21 06:00 03/31/21 06:01 Heparin 5,000 Unit/1 Ml Vial SUB-Q 5,000 unit Q8HR LORI Administration Magnesium Hydroxide 30 ml 03/30/21 22:48 Magnesium Hydroxide (Mom) Oral Liqd Udc PO Q4H PRN Constipation Metoclopramide HCl 10 mg 03/30/21 22:48 Metoclopramide 10 Mg Tab PO Q6H PRN Nausea And Vomiting Morphine Sulfate 2 mg 03/30/21 22:48 Morphine 2 Mg/1 Ml Inj IV Q4H PRN Pain, Moderate (4-6) Ondansetron HCl 4 mg 03/30/21 22:48 Ondansetron 4 Mg/2 Ml Inj IV Q8H PRN Nausea And Vomiting Promethazine HCl 25 mg 03/30/21 22:48 Promethazine 25 Mg Rect Supp CO Q6H PRN Nausea And Vomiting Sodium Chloride 10 ml 03/31/21 10:00 Sodium Chloride 0.9% 10 Ml Flush Syringe IV BID LORI Sodium Chloride 10 ml 03/30/21 22:48 Sodium Chloride 0.9% 10 Ml Flush Syringe IV PRN PRN LINE FLUSH
[2021-03-31] MEDS: ASPIRIN 325 MG TAB PO SCH (09:26)
[2021-04-01] MEDS: HEPARIN 5,000 UNIT/1 ML VIAL SUB-Q SCH ×3 (05:08→21:23)
[2021-04-01] MEDS: ACETAMINOPHEN 325 MG TAB PO PRN ×2 (05:43→18:05)
[2021-04-01 07:45] LABS: Basophils % (Auto) 0.3 % (0.0-1.8); Eosinophils % (Auto) 0.3 % (0.0-4.3); Hematocrit 45.6 % (35.5-45.6); Hemoglobin 15.7 gm/dl (11.8-15.2); Lymphocytes # (Auto) 3.7 K/mm3 (1.2-5.4); Lymphocytes % (Auto) 33.7 % (13.4-35.0); Mean Corpuscular HGB Conc 34 % (32-34); Mean Corpuscular Volume 93 fl (84-94); Monocytes # (Auto) 0.9 K/mm3 (0.0-0.8); Platelet Count 227 K/mm3 (140-440); Red Blood Count 4.91 M/mm3 (3.65-5.03); Red Cell Distribution Width 13.9 % (13.2-15.2)
[2021-04-01 08:06] LABS: BUN/Creatinine Ratio 24; Blood Urea Nitrogen 29 mg/dL (9-20); Calcium 9.7 mg/dL (8.4-10.2); Hemolysis Index 4
--- NOTE | 2021-04-01 08:37 | Consultation ---
History of Present Illness Consult date: 04/01/21 Reason for Consult: Left side weakness and occluded R.ICA and R.LACEY History of present illness: Left sided weakness History of present illness: 60-year-old -Domin[place] male with past medical history of multiple CVAs with residual right-sided weakness and aphasia tube feeding ,brought into the emergency room today because of left-sided weakness. Patient was able to make gestures with his hands during this history and physical but not able to express himself. Last well-known time was about 7:30 AM. Patient however indicates that his left-sided weakness started at about 5 PM today. he denies any fever or chills, no nausea vomiting, no chest pain or shortness of breath, no abdominal pain, no diarrhea. He has had some headache which he indicates was more in his occipital region. He denies any sick contacts and no recent travel. Denies any contact with anyone with COVID-19. Patient's sister who was by the bedside was able to also provide some information during this history and physical. Work-up in the emergency room today, CT scan of the head shows extensive edema involving the anteromedial right frontal lobe indicating of of evolving infarct along the right LACEY distribution. There is evidence of microvascular angiopathy with multiple old infarcts. No evidence of acute intracranial hemorrhage. CTA of the head and neck reveals occlusion of the distal right ICA and LACEY with evolving infarct .The findings are compatible with occlusion of the proximal right MCA with collateral flow distally. There is marked stenosis involving the left MCA with notable active since collateral vessels. Interventional radiology was consulted at [facility] by the ER physician. Patient is not a good candidate for any surgical intervention and the recommendation is to continue medical management in this facility. Past History Past Medical History: CAD (H/O NE), hypertension Past Surgical History: PTCA Social history: smoking (Former Smoker) Family history: no significant family history Medications and Allergies Allergies Allergy/AdvReac Type Severity Reaction Status Date / Time No Known Allergies Allergy Verified 03/30/21 20:15 Home Medications Medication Instructions Recorded Confirmed Last Taken Type Amlodipine Besylate [Norvasc] 5 mg PO QDAY 03/30/21 03/30/21 Unknown History Aspirin [Adult Aspirin] 81 mg PO QDAY 03/30/21 03/30/21 Unknown History AtorvaSTATin [Lipitor] 20 mg PO QHS 03/30/21 03/30/21 Unknown History Butalb/Acetaminophen/Caffeine 1 each PO QDAY 03/30/21 03/30/21 Unknown History [Idnffe-Xfrperly-Kchw 50-325-40] Citalopram [celeXA] 10 mg PO QDAY 03/30/21 03/30/21 Unknown History Mecobalamin [B12 Active] 1,000 mcg PO QDAY 03/30/21 03/30/21 Unknown History Metoprolol Xl [Metoprolol 100 mg PO QDAY 03/30/21 03/30/21 Unknown History SUCCINATE ER TAB] Oxybutynin [Ditropan] 5 mg PO BID 03/30/21 03/30/21 Unknown History lisinopriL [Zestril TAB] 40 mg PO QDAY 03/30/21 03/30/21 Unknown History Active Meds: Active Medications Acetaminophen (Acetaminophen 325 Mg Tab) 650 mg PO Q4H PRN PRN Reason: Pain MILD(1-3)/Fever >100.5/CANTU Acetaminophen (Acetaminophen 325 Mg Tab) 650 mg PO Q4H PRN PRN Reason: Pain, Mild (1-3) Aspirin (Aspirin 325 Mg Tab) 325 mg PO QDAY LORI Atorvastatin Calcium (Atorvastatin 40 Mg Tab) 40 mg PO QHS LORI Bisacodyl (Bisacodyl 10 Mg Rect Supp) 10 mg [place] QDAY PRN PRN Reason: Constipation Heparin Sodium (Porcine) (Heparin 5,000 Unit/1 Ml Vial) 5,000 unit SUB-Q Q8HR LORI Magnesium Hydroxide (Magnesium Hydroxide (Mom) Oral Liqd Udc) 30 ml PO Q4H PRN PRN Reason: Constipation Magnesium Hydroxide (Magnesium Hydroxide (Mom) Oral Liqd Udc) 30 ml PO Q4H PRN PRN Reason: Constipation Metoclopramide HCl (Metoclopramide 10 Mg Tab) 10 mg PO Q6H PRN PRN Reason: Nausea And Vomiting Morphine Sulfate (Morphine 2 Mg/1 Ml Inj) 2 mg IV Q4H PRN PRN Reason: Pain, Moderate (4-6) Ondansetron HCl (Ondansetron 4 Mg/2 Ml Inj) 4 mg IV Q8H PRN PRN Reason: Nausea And Vomiting Ondansetron HCl (Ondansetron 4 Mg/2 Ml Inj) 4 mg IV Q8H PRN PRN Reason: Nausea And Vomiting Promethazine HCl (Promethazine 25 Mg Rect Supp) 25 mg [place] Q6H PRN PRN Reason: Nausea And Vomiting Sodium Chloride (Sodium Chloride 0.9% 10 Ml Flush Syringe) 10 ml IV BID LORI Sodium Chloride (Sodium Chloride 0.9% 10 Ml Flush Syringe) 10 ml IV PRN PRN PRN Reason: LINE FLUSH Sodium Chloride (Sodium Chloride 0.9% 10 Ml Flush Syringe) 10 ml INJ PRN PRN PRN Reason: LINE FLUSH Review of Systems Constitutional: no fever, no chills Ears, nose, mouth and throat: no nasal congestion, no sore throat Cardiovascular: no chest pain, no palpitations Respiratory: no cough, no shortness of breath Gastrointestinal: no abdominal pain, no nausea, no vomiting, no diarrhea Genitourinary Male: no dysuria, no hematuria, no nocturia Musculoskeletal: no neck pain, no low back pain Integumentary: no rash, no pruritis Neurological: weakness (Left sided weakness), no headaches, no confusion Psychiatric: no anxiety, no depression Endocrine: no polyphagia, no polydipsia, no polyuria, no nocturia Past History Past Medical History: CAD (H/O NE), hypertension Past Surgical History: PTCA Social history: smoking (Former Smoker) Family history: no significant family history Medications and Allergies Allergies Allergy/AdvReac Type Severity Reaction Status Date / Time No Known Allergies Allergy Verified 03/30/21 20:15 Home Medications Medication Instructions Recorded Confirmed Last Taken Type Amlodipine Besylate [Norvasc] 5 mg PO QDAY 03/30/21 03/30/21 Unknown History Aspirin [Adult Aspirin] 81 mg PO QDAY 03/30/21 03/30/21 Unknown History AtorvaSTATin [Lipitor] 20 mg PO QHS 03/30/21 03/30/21 Unknown History Butalb/Acetaminophen/Caffeine 1 each PO QDAY 03/30/21 03/30/21 Unknown History [Vftkso-Xwyunibn-Mfkj 50-325-40] Citalopram [celeXA] 10 mg PO QDAY 03/30/21 03/30/21 Unknown History Mecobalamin [B12 Active] 1,000 mcg PO QDAY 03/30/21 03/30/21 Unknown History Metoprolol Xl [Metoprolol 100 mg PO QDAY 03/30/21 03/30/21 Unknown History SUCCINATE ER TAB] Oxybutynin [Ditropan] 5 mg PO BID 03/30/21 03/30/21 Unknown History lisinopriL [Zestril TAB] 40 mg PO QDAY 03/30/21 03/30/21 Unknown History Active Meds: Active Medications Acetaminophen (Acetaminophen 325 Mg Tab) 650 mg PO Q4H PRN PRN Reason: Pain, Mild (1-3) Last Admin: 04/01/21 05:43 Dose: 650 mg Documented by: Aspirin (Aspirin 325 Mg Tab) 325 mg PO QDAY [facility] Last Admin: 03/31/21 09:26 Dose: 325 mg Documented by: Atorvastatin Calcium (Atorvastatin 40 Mg Tab) 40 mg PO QHS [facility] Last Admin: 03/31/21 21:27 Dose: 40 mg Documented by: Bisacodyl (Bisacodyl 10 Mg Rect Supp) 10 mg [place] QDAY PRN PRN Reason: Constipation Heparin Sodium (Porcine) (Heparin 5,000 Unit/1 Ml Vial) 5,000 unit SUB-Q Q8HR [facility] Last Admin: 04/01/21 05:08 Dose: 5,000 unit Documented by: Magnesium Hydroxide (Magnesium Hydroxide (Mom) Oral Liqd Udc) 30 ml PO Q4H PRN PRN Reason: Constipation Metoclopramide HCl (Metoclopramide 10 Mg Tab) 10 mg PO Q6H PRN PRN Reason: Nausea And Vomiting Morphine Sulfate (Morphine 2 Mg/1 Ml Inj) 2 mg IV Q4H PRN PRN Reason: Pain, Moderate (4-6) Ondansetron HCl (Ondansetron 4 Mg/2 Ml Inj) 4 mg IV Q8H PRN PRN Reason: Nausea And Vomiting Promethazine HCl (Promethazine 25 Mg Rect Supp) 25 mg KS Q6H PRN PRN Reason: Nausea And Vomiting Sodium Chloride (Sodium Chloride 0.9% 10 Ml Flush Syringe) 10 ml IV BID [facility] Last Admin: 03/31/21 21:27 Dose: 10 ml Documented by: Sodium Chloride (Sodium Chloride 0.9% 10 Ml Flush Syringe) 10 ml IV PRN PRN PRN Reason: LINE FLUSH Physical Examination - Vital Signs Vital Signs: Vital Signs Pulse Resp BP Pulse Ox 85 20 149/81 96 03/30/21 20:00 03/30/21 20:00 03/30/21 20:00 03/30/21 20:00 - Constitutional General appearance: comfortable - EENT EENT: Present: PERRL, mucous membranes moist - Respiratory Respiratory: Present: lungs clear, rhonchi - Cardiovascular Cardiovascular: Present: normal S1, normal S2 Extremities: Present: no peripheral edema bilatateraly - Gastrointestinal Gastrointestinal: Present: normoactive bowel sounds - Integumentary Integumentary: Present: normal - Neurologic Cranial nerve examination: PERRL, EOMI Speech examination: other (he is aphasic no speech output but comprehension is intact , he is able to write down what he wants to say !!!!) Sensorimotor examination: other (left side weakness 4-/5 , brisk reflexes bilteral and positive philip sign bilateral ) Results - Laboratory Findings CBC and BMP: 04/01/21 07:21 04/01/21 07:21 Abnormal Lab Findings: Abnormal Labs 03/30/21 03/30/21 03/30/21 19:58 19:58 19:58 WBC 11.4 H Hgb [place] % (Auto) 10.1 H [place] # (Auto) 1.2 H BUN 31 H Creatinine 1.4 H Glucose POC Glucose Total Creatine Kinase 498 H CK-MB (CK-2) 5.0 H HDL Cholesterol 03/31/21 03/31/21 03/31/21 05:11 05:11 15:28 WBC Hgb [place] % (Auto) 9.5 H [place] # (Auto) 1.0 H BUN 27 H Creatinine Glucose POC Glucose 136 H Total Creatine Kinase CK-MB (CK-2) HDL Cholesterol 65 H 04/01/21 04/01/21 07:21 07:21 WBC Hgb 15.7 H [place] % (Auto) 8.0 H [place] # (Auto) 0.9 H BUN 29 H Creatinine Glucose 108 H POC Glucose Total Creatine Kinase CK-MB (CK-2) HDL Cholesterol Assessment and Plan Assessment and Plan # Acute CVA (cerebrovascular accident) pt. presented with new onset left side weakness -he is with remote CVA and aphasia ?? - CT brain is remarkable for L.LACEY infarct with edema -CTA occluded L.ICA and L.LACEY with possible thrombus L.MCA? and stenosis in R.MCA -echo is pending -MRI is pending -ST and PT -add Plavix 75 mg daily Patient admitted and placed on daily aspirin and statin. -[id number] # Brisk reflexes -r/o Cervical mylopathy -MRI cervical spine -B12 # Hypertension -We will resume routine home medications and monitor vital signs closely. # DVT prophylaxis -Patient placed on subcutaneous heparin. #Full code status Patient is full code. will follow
[2021-04-01] MEDS: ASPIRIN 325 MG TAB PO SCH (09:14)
--- NOTE | 2021-04-01 09:24 | Progress Note ---
Assessment and Plan Assessment and plan: Acute CVA. Hypertension History of CAD/PTCA. 03/31/2021. CT scan of the head shows extensive edema involving the anteromedial right frontal lobe indicative of evolving infarct along the right LACEY distr ibution. There is evidence of microvascular angiopathy with multiple old infarcts. No evidence of acute intracranial hemorrhage. CTA of the head and neck reveals occlusion of the distal right ICA and LACEY with evolving infarct. The findings are compatible with occlusion of the proximal right MCA with collateral flow distally. There is marked stenosis involving the left MCA with notable active since collateral vessels. Neurology consultation. PT/OT/ST. Continue aspirin and statin. 04/01/2021. Follow-up MRI brain for acute CVA. Continue medications for hypertension. Neurology following. PT/OT/ST. Continue aspirin and statin. History Interval history: No new issues overnight. Hospitalist Physical - Constitutional Vitals: Temp Pulse Resp BP Pulse Ox 97.9 F 91 H 18 132/94 96 04/01/21 03:52 04/01/21 03:52 04/01/21 07:42 04/01/21 03:52 04/01/21 03:52 General appearance: Present: no acute distress, well-nourished - EENT Eyes: Present: PERRL, EOM intact ENT: hearing intact, clear oral mucosa, dentition normal - Neck Neck: Present: supple, normal ROM - Respiratory Respiratory effort: normal Respiratory: bilateral: CTA - Cardiovascular Rhythm: regular Heart Sounds: Present: S1 & S2. Absent: gallop, rub - Extremities Extremities: no ischemia, No edema, Full ROM - Abdominal General gastrointestinal: soft, non-tender, non-distended, normal bowel sounds - Integumentary Integumentary: Present: clear, warm, dry - Neurologic Neurologic: CNII-XII intact, moves all extremities HEART Score - HEART Score Troponin: Troponin T < 0.010 ng/mL (0.00-0.029) 03/30/21 19:58 Results - Labs CBC & Chem 7: 04/01/21 07:21 04/01/21 07:21 Labs: Laboratory Last Values WBC 10.9 K/mm3 (4.5-11.0) 04/01/21 07:21 RBC 4.91 M/mm3 (3.65-5.03) 04/01/21 07:21 Hgb 15.7 gm/dl (11.8-15.2) H 04/01/21 07:21 Hct 45.6 % (35.5-45.6) 04/01/21 07:21 MCV 93 fl (84-94) 04/01/21 07:21 MCH 32 pg (28-32) 04/01/21 07:21 MCHC 34 % (32-34) 04/01/21 07:21 RDW 13.9 % (13.2-15.2) 04/01/21 07:21 Plt Count 227 K/mm3 (140-440) 04/01/21 07:21 Lymph % (Auto) 33.7 % (13.4-35.0) 04/01/21 07:21 [place] % (Auto) 8.0 % (0.0-7.3) H 04/01/21 07:21 Eos % (Auto) 0.3 % (0.0-4.3) 04/01/21 07:21 Baso % (Auto) 0.3 % (0.0-1.8) 04/01/21 07:21 Lymph # (Auto) 3.7 K/mm3 (1.2-5.4) 04/01/21 07:21 [place] # (Auto) 0.9 K/mm3 (0.0-0.8) H 04/01/21 07:21 Eos # (Auto) 0.0 K/mm3 (0.0-0.4) 04/01/21 07:21 Baso # (Auto) 0.0 K/mm3 (0.0-0.1) 04/01/21 07:21 Seg Neutrophils % 57.7 % (40.0-70.0) 04/01/21 07:21 Seg Neutrophils # 6.3 K/mm3 (1.8-7.7) 04/01/21 07:21 PT 13.6 Sec. (12.2-14.9) 03/31/21 05:11 INR 0.98 (0.87-1.13) 03/31/21 05:11 APTT 27.6 Sec. (24.2-36.6) 03/30/21 19:58 Thrombin Time 18.9 Sec. (15.1-19.6) 03/30/21 19:58 Sodium 142 mmol/L (137-145) 03/31/21 05:11 Potassium 3.8 mmol/L (3.6-5.0) D 04/01/21 07:21 Chloride 101.9 mmol/L (98-107) 03/31/21 05:11 Carbon Dioxide 24 mmol/L (22-30) 04/01/21 07:21 Anion Gap 20 mmol/L 03/31/21 05:11 BUN 29 mg/dL (9-20) H 04/01/21 07:21 Creatinine 1.2 mg/dL (0.8-1.3) 04/01/21 07:21 Estimated GFR > 60 ml/min 04/01/21 07:21 BUN/Creatinine Ratio 24 % 04/01/21 07:21 Glucose 108 mg/dL (75-100) H 04/01/21 07:21 POC Glucose 96 mg/dL (70-105) 04/01/21 07:31 Calcium 9.7 mg/dL (8.4-10.2) 04/01/21 07:21 Total Creatine Kinase 498 units/L (55-170) H 03/30/21 19:58 CK-MB (CK-2) 5.0 ng/mL (0.0-4.0) H 03/30/21 19:58 CK-MB (CK-2) Rel Index 1.0 (0-4) 03/30/21 19:58 Troponin T < 0.010 ng/mL (0.00-0.029) 03/30/21 19:58 Triglycerides 50 mg/dL (2-149) 03/31/21 05:11 Cholesterol 191 mg/dL (50-199) 03/31/21 05:11 LDL Cholesterol Direct 118 mg/dL (50-130) 03/31/21 05:11 HDL Cholesterol 65 mg/dL (40-59) H 03/31/21 05:11 Cholesterol/HDL Ratio 2.93 % 03/31/21 05:11 Sam/IV: Voiding Method Condom Catheter Active Medications - Current Medications Current Medications: Generic Name Dose Route Start Last Admin Trade Name Freq PRN Reason Stop Dose Admin Acetaminophen 650 mg 03/30/21 22:48 04/01/21 05:43 Acetaminophen 325 Mg Tab PO 650 mg Q4H PRN Administration Pain, Mild (1-3) Aspirin 325 mg 06/13/21 10:00 04/01/21 09:14 Aspirin 325 Mg Tab PO 325 mg QDAY LORI Administration Atorvastatin Calcium 40 mg 03/31/21 22:00 03/31/21 21:27 Atorvastatin 40 Mg Tab PO 40 mg QHS LORI Administration Bisacodyl 10 mg 03/30/21 22:48 Bisacodyl 10 Mg Rect Supp [place] QDAY PRN Constipation Heparin Sodium (Porcine) 5,000 unit 03/31/21 06:00 04/01/21 05:08 Heparin 5,000 Unit/1 Ml Vial SUB-Q 5,000 unit Q8HR LORI Administration Magnesium Hydroxide 30 ml 03/30/21 22:48 Magnesium Hydroxide (Mom) Oral Liqd Udc PO Q4H PRN Constipation Metoclopramide HCl 10 mg 03/30/21 22:48 Metoclopramide 10 Mg Tab PO Q6H PRN Nausea And Vomiting Morphine Sulfate 2 mg 03/30/21 22:48 Morphine 2 Mg/1 Ml Inj IV Q4H PRN Pain, Moderate (4-6) Ondansetron HCl 4 mg 03/30/21 22:48 Ondansetron 4 Mg/2 Ml Inj IV Q8H PRN Nausea And Vomiting Promethazine HCl 25 mg 03/30/21 22:48 Promethazine 25 Mg Rect Supp [place] Q6H PRN Nausea And Vomiting Sodium Chloride 10 ml 03/31/21 10:00 04/01/21 09:21 Sodium Chloride 0.9% 10 Ml Flush Syringe IV Not Given BID LORI Sodium Chloride 10 ml 03/30/21 22:48 Sodium Chloride 0.9% 10 Ml Flush Syringe IV PRN PRN LINE FLUSH Nutrition/Malnutrition Assess - Dietary Evaluation Nutrition/Malnutrition Findings: Nutrition Notes Start: 03/31/21 10:46 Freq: Status: Active Protocol: Document 03/31/21 10:46 CALVIN (Rec: 03/31/21 10:49 CALVIN [id number]) Nutrition Notes Need for Assessment generated from: MD Order,Education Initial or Follow up Brief Note Current Diagnosis Coronary Artery Disease, Hypertension,Stroke Current Diet Cardiac Subjective/Other Information MD order for diet education. Gave pt sister Candy heart healthy diet education and talked about reducing amount of sodium in pt diet. 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
--- NOTE | 2021-04-01 15:00 | Electrocardiograph Report ---
[facility] Test Date: 2021-03-30 Test Time: 20:00:59 Pat Name: LEI MAXWELL JR Department: Room: A472 1 Gender: M Re Dye Hand: ENEDINA : 1960 Requested By: ALLISON AMARAL Order Number: [id number] Reading MD: Zev Fajardo Measurements Intervals [place] Rate: 84 P: 19 CO: 329 QRS: -10 QRSD: 90 T: 32 QT: 358 QTc: 424 Interpretive Statements Sinus rhythm Prolonged CO interval No previous ECG available for comparison Electronically Signed On 04-01-2021 15:00:05 EDT by Zev Fajardo
[2021-04-02] MEDS: ACETAMINOPHEN 325 MG TAB PO PRN ×3 (01:23→20:28)
[2021-04-02] MEDS: HEPARIN 5,000 UNIT/1 ML VIAL SUB-Q SCH ×3 (06:09→23:08)
[2021-04-02] MEDS: ASPIRIN 325 MG TAB PO SCH (09:05)
[2021-04-02] MEDS: CLOPIDOGREL 75 MG TAB PO SCH (09:20)
--- NOTE | 2021-04-02 09:44 | Fluoroscopy Report ---
MODIFIED BARIUM SWALLOW INDICATION: dysphagia TECHNIQUE: Swallowing was evaluated in the lateral position under direct fluoroscopy. FINDINGS: The patient was evaluated with thin liquids, semisolid and puree consistencies. Mild vallecular and piriform sinus residuals were noted with thin liquids and semisolid consistencies which cleared upon additional swallowing. No abnormality with puree consistency. No aspiration was w itnessed. IMPRESSION: Mild residual as described. Fluoroscopic time: 2.0 minutes Number of fluoroscopic images: 2 Signer Name: Franklyn Guido Jr, MD Signed: 04/02/2021 9:40 AM Workstation Name: [id number]
--- NOTE | 2021-04-02 12:29 | Progress Note ---
Assessment and Plan Assessment and Plan # Acute CVA (cerebrovascular accident) pt. presented with new onset left side weakness -he is with remote CVA and aphasia ?? - CT brain is remarkable for L.LACEY infarct with edema -CTA occluded L.ICA and L.LACEY with possible thrombus L.MCA? and stenosis in R.MCA -echo is pending -MRI is pending -ST and PT -add Plavix 75 mg daily Patient admitted and placed on daily aspirin and statin. -[id number] # Brisk reflexes -r/o Cervical mylopathy -MRI cervical spine -B12 # is pending # Hypertension -We will resume routine home medications and monitor vital signs closely. # DVT prophylaxis -Patient placed on subcutaneous heparin. #Full code status Patient is full code. PLAN 1- Review MRI brain 2-Tylenol prn headache 500 mg tid 3-Review echo 4- MRI cervical spine 5- Ativan prn for the MRI 6- ST/PT 7- Lipitor increase to 80 mg,ASA 81 mg Plus Plavix 75 mg 8- cardiac monitoring Subjective Date of service: 04/02/21 Principal diagnosis: CVA and swallowing diffiulty , aphasia Interval history: staple still with no clear speech out put complain of headache this am Fluroscopic swallow is noted MRI not done Echo is pending Objective - Vital Sign Vital Signs - 12hr 04/02/21 04/02/21 04/02/21 03:50 06:50 09:22 Temperature 98.7 F 97.9 F Pulse Rate 77 90 Respiratory 18 16 Rate Blood Pressure 144/104 125/94 O2 Sat by Pulse 97 98 98 Oximetry - General Apperance Constitutional: comfortable - EENT EENT: PERRL - Respiratory Respiratory: chest non-tender, lungs clear, rhonchi - Cardiovascular Cardiovascular: regular rate, normal S1, normal S2 Extremities: no peripheral edema bilat, no clubbing, cyanosis - Gastrointestinal Gastrointestinal: normoactive bowel sounds - Integumentary Integumentary: normal - Neurologic Cranial nerve examination: PERRL, EOMI, intact (slight left facial droop , aphasic but comprehend well and able to express him self by writting !!) Detailed motor examination: other (left upper droop , still with brisk reflexes bilteral and or positive philip sign .) - Laboratory Findings CBC and BMP: 04/01/21 07:21 04/01/21 07:21 Abnormal Lab Findings: Abnormal Labs 03/30/21 03/30/21 03/30/21 19:58 19:58 19:58 WBC 11.4 H Hgb [place] % (Auto) 10.1 H [place] # (Auto) 1.2 H BUN 31 H Creatinine 1.4 H Glucose POC Glucose Total Creatine Kinase 498 H CK-MB (CK-2) 5.0 H HDL Cholesterol 03/31/21 03/31/21 03/31/21 05:11 05:11 15:28 WBC Hgb [place] % (Auto) 9.5 H [place] # (Auto) 1.0 H BUN 27 H Creatinine Glucose POC Glucose 136 H Total Creatine Kinase CK-MB (CK-2) HDL Cholesterol 65 H 04/01/21 04/01/21 04/01/21 06:11 07:21 07:21 WBC Hgb 15.7 H [place] % (Auto) 8.0 H [place] # (Auto) 0.9 H BUN 29 H Creatinine Glucose 108 H POC Glucose 109 H Total Creatine Kinase CK-MB (CK-2) HDL Cholesterol
[2021-04-02] MEDS: LORazepam 2 MG/ML VIAL IV PRN (13:40)
--- NOTE | 2021-04-02 15:09 | Progress Note ---
Assessment and Plan Assessment and plan: Acute CVA. Hypertension History of CAD/PTCA. 03/31/2021. CT scan of the head shows extensive edema involving the anteromedial right frontal lobe indicative of evolving infarct along the right LACEY distri bution. There is evidence of microvascular angiopathy with multiple old infarcts. No evidence of acute intracranial hemorrhage. CTA of the head and neck reveals occlusion of the distal right ICA and LACEY with evolving infarct. The findings are compatible with occlusion of the proximal right MCA with collateral flow distally. There is marked stenosis involving the left MCA with notable active since collateral vessels. Neurology consultation. PT/OT/ST. Continue aspirin and statin. 04/01/2021. Follow-up MRI brain for acute CVA. Continue medications for hypertension. Neurology following. PT/OT/ST. Continue aspirin and statin. 04/02/21 Patient presented with left sided weakness. MRI Brain done, report still pending. Patient has expressive aphasia from previous stroke History Interval history: Left sided weakness Hospitalist Physical - Physical exam Narrative exam: Gen: Not in acute distress, lying in bed HEENT: Normochephalic, atraumatic Neck:supple, No JVD Lungs:Clear to auscultation bilaterally, no rales, no wheeze Heart:S1 and S2 reg, no murmurs, rubs or gallop Abd: soft, non tender, non distended, normal bowel sounds Ext: No edema, no clubbing, no cyanosis Neuro:Awake,alert, left sided weakness - Constitutional Vitals: Temp Pulse Resp BP Pulse Ox 97.9 F 90 16 125/94 98 04/02/21 06:50 04/02/21 06:50 04/02/21 06:50 04/02/21 06:50 04/02/21 09:22 General appearance: Present: no acute distress, well-nourished HEART Score - HEART Score Troponin: Troponin T < 0.010 ng/mL (0.00-0.029) 03/30/21 19:58 Results - Labs CBC & Chem 7: 04/01/21 07:21 04/01/21 07:21 Labs: Laboratory Last Values WBC 10.9 K/mm3 (4.5-11.0) 04/01/21 07:21 RBC 4.91 M/mm3 (3.65-5.03) 04/01/21 07:21 Hgb 15.7 gm/dl (11.8-15.2) H 04/01/21 07:21 Hct 45.6 % (35.5-45.6) 04/01/21 07:21 MCV 93 fl (84-94) 04/01/21 07:21 MCH 32 pg (28-32) 04/01/21 07:21 MCHC 34 % (32-34) 04/01/21 07:21 RDW 13.9 % (13.2-15.2) 04/01/21 07:21 Plt Count 227 K/mm3 (140-440) 04/01/21 07:21 Lymph % (Auto) 33.7 % (13.4-35.0) 04/01/21 07:21 [place] % (Auto) 8.0 % (0.0-7.3) H 04/01/21 07:21 Eos % (Auto) 0.3 % (0.0-4.3) 04/01/21 07:21 Baso % (Auto) 0.3 % (0.0-1.8) 04/01/21 07:21 Lymph # (Auto) 3.7 K/mm3 (1.2-5.4) 04/01/21 07:21 [place] # (Auto) 0.9 K/mm3 (0.0-0.8) H 04/01/21 07:21 Eos # (Auto) 0.0 K/mm3 (0.0-0.4) 04/01/21 07:21 Baso # (Auto) 0.0 K/mm3 (0.0-0.1) 04/01/21 07:21 Seg Neutrophils % 57.7 % (40.0-70.0) 04/01/21 07:21 Seg Neutrophils # 6.3 K/mm3 (1.8-7.7) 04/01/21 07:21 PT 13.6 Sec. (12.2-14.9) 03/31/21 05:11 INR 0.98 (0.87-1.13) 03/31/21 05:11 APTT 27.6 Sec. (24.2-36.6) 03/30/21 19:58 Thrombin Time 18.9 Sec. (15.1-19.6) 03/30/21 19:58 Sodium 142 mmol/L (137-145) 03/31/21 05:11 Potassium 3.8 mmol/L (3.6-5.0) D 04/01/21 07:21 Chloride 101.9 mmol/L (98-107) 03/31/21 05:11 Carbon Dioxide 24 mmol/L (22-30) 04/01/21 07:21 Anion Gap 20 mmol/L 03/31/21 05:11 BUN 29 mg/dL (9-20) H 04/01/21 07:21 Creatinine 1.2 mg/dL (0.8-1.3) 04/01/21 07:21 Estimated GFR > 60 ml/min 04/01/21 07:21 BUN/Creatinine Ratio 24 % 04/01/21 07:21 Glucose 108 mg/dL (75-100) H 04/01/21 07:21 POC Glucose 100 mg/dL (70-105) 04/01/21 16:36 Calcium 9.7 mg/dL (8.4-10.2) 04/01/21 07:21 Total Creatine Kinase 498 units/L (55-170) H 03/30/21 19:58 CK-MB (CK-2) 5.0 ng/mL (0.0-4.0) H 03/30/21 19:58 CK-MB (CK-2) Rel Index 1.0 (0-4) 03/30/21 19:58 Troponin T < 0.010 ng/mL (0.00-0.029) 03/30/21 19:58 Triglycerides 50 mg/dL (2-149) 03/31/21 05:11 Cholesterol 191 mg/dL (50-199) 03/31/21 05:11 LDL Cholesterol Direct 118 mg/dL (50-130) 03/31/21 05:11 HDL Cholesterol 65 mg/dL (40-59) H 03/31/21 05:11 Cholesterol/HDL Ratio 2.93 % 03/31/21 05:11 Coronavirus (PCR) Negative (Negative) 04/01/21 Unknown Sam/IV: Voiding Method Condom Catheter Active Medications - Current Medications Current Medications: Generic Name Dose Route Start Last Admin Trade Name Freq PRN Reason Stop Dose Admin Acetaminophen 650 mg 03/30/21 22:48 04/02/21 09:04 Acetaminophen 325 Mg Tab PO 650 mg Q4H PRN Administration Pain, Mild (1-3) Aspirin 325 mg 03/31/21 10:00 04/02/21 09:05 Aspirin 325 Mg Tab PO 325 mg QDAY LORI Administration Atorvastatin Calcium 80 mg 04/02/21 22:00 Atorvastatin 40 Mg Tab PO QHS LORI Bisacodyl 10 mg 03/30/21 22:48 Bisacodyl 10 Mg Rect Supp SC QDAY PRN Constipation Clopidogrel Bisulfate 75 mg 04/02/21 10:00 04/02/21 09:20 Clopidogrel 75 Mg Tab PO 75 mg QDAY LORI Administration Heparin Sodium (Porcine) 5,000 unit 03/31/21 06:00 04/02/21 13:40 Heparin 5,000 Unit/1 Ml Vial SUB-Q 5,000 unit Q8HR LORI Administration Lorazepam 1 mg 04/02/21 13:25 04/02/21 13:40 Lorazepam 2 Mg/Ml Vial IV 1 mg Q1H PRN Administration for MRI Magnesium Hydroxide 30 ml 03/30/21 22:48 Magnesium Hydroxide (Mom) Oral Liqd Udc PO Q4H PRN Constipation Metoclopramide HCl 10 mg 03/30/21 22:48 Metoclopramide 10 Mg Tab PO Q6H PRN Nausea And Vomiting Morphine Sulfate 2 mg 03/30/21 22:48 Morphine 2 Mg/1 Ml Inj IV Q4H PRN Pain, Moderate (4-6) Ondansetron HCl 4 mg 03/30/21 22:48 Ondansetron 4 Mg/2 Ml Inj IV Q8H PRN Nausea And Vomiting Promethazine HCl 25 mg 03/30/21 22:48 Promethazine 25 Mg Rect Supp SC Q6H PRN Nausea And Vomiting Sodium Chloride 10 ml 03/31/21 10:00 04/02/21 09:07 Sodium Chloride 0.9% 10 Ml Flush Syringe IV 10 ml BID LORI Administration Sodium Chloride 10 ml 03/30/21 22:48 Sodium Chloride 0.9% 10 Ml Flush Syringe IV PRN PRN LINE FLUSH Nutrition/Malnutrition Assess - Dietary Evaluation Nutrition/Malnutrition Findings: Nutrition Notes Start: 03/31/21 10:46 Freq: Status: Active Protocol: Document 03/31/21 10:46 CALVIN (Rec: 03/31/21 10:49 CALVIN [id number]) Nutrition Notes Need for Assessment generated from: MD Order,Education Initial or Follow up Brief Note Current Diagnosis Coronary Artery Disease, Hypertension,Stroke Current Diet Cardiac Subjective/Other Information MD order for diet education. Gave pt sister Candy heart healthy diet education and talked about reducing amount of sodium in pt diet. 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
--- NOTE | 2021-04-02 16:22 | Magnetic Resonance Report ---
MR brain wo con INDICATION / CLINICAL INFORMATION: 60 years Male; stroke, lt sided weakness Patient was given 2mg Ativan prior to MRI, patient continued to move during the scan. Best possible exam, patient motion. . TECHNIQUE: Multiplanar, multisequence M which correlates with the earlier CT. R images of the brain were obtaine d. COMPARISON: The study is compared to the previous CT of 03/30/2021. FINDINGS: BRAIN / INTRACRANIAL CONTENTS: The study is limited by motion despite repeat imaging. The patient was unable to complete the exam and axial FLAIR sequence was not included at. There is acute to infarct along the anteromedial right frontal lobe compatible with acute right LACEY i nfarct and correlates with the prior CT. The acute infarct also extends along the anterior right basa l ganglia and thalamus. There appears be mild cerebral atrophy with associated prominence of the vent ricular system which again correlates with the CT. There is relative heterogeneous appearance of the distal right ICA indicative of occlusion which also correlates with the previous CTA exams. There is mild to moderate mucosal thickening within the visualized left maxillary sinus. ADDITIONAL FINDINGS: None. IMPRESSION: 1. The study is limited by motion. However, there is a large acute right LACEY infarct as detailed janeen mckeon Signer Name: Kiran De Jesus MD Signed: 04/02/2021 4:18 PM Workstation Name: [id number]
[2021-04-03 03:09] LABS: Hematocrit 43.2 % (35.5-45.6); Hemoglobin 14.7 gm/dl (11.8-15.2); Mean Corpuscular HGB Conc 34 % (32-34); Mean Corpuscular Volume 94 fl (84-94); Platelet Count 213 K/mm3 (140-440); Red Blood Count 4.58 M/mm3 (3.65-5.03); Red Cell Distribution Width 13.9 % (13.2-15.2)
[2021-04-03 03:29] LABS: BUN/Creatinine Ratio 17; Blood Urea Nitrogen 24 mg/dL (9-20); Calcium 9.2 mg/dL (8.4-10.2); Hemolysis Index 6
[2021-04-03] MEDS: ACETAMINOPHEN 325 MG TAB PO PRN ×2 (05:57→12:17)
[2021-04-03] MEDS: HEPARIN 5,000 UNIT/1 ML VIAL SUB-Q SCH ×3 (05:57→22:16)
--- NOTE | 2021-04-03 08:52 | XRay Report ---
CHEST 1 VIEW INDICATION: hypertension. COMPARISON: None FINDINGS: Support devices: None. Heart: Within normal limits. Lungs/Pleura: No acute infiltrate, pleural effusion or pneumothorax. Additional findings: There appear to be multiple healed left posterior rib fractures some of which ar e displaced. Correlate with the patient's history. IMPRESSION: No acute findings. Signer Name: Franklyn Guido Jr, MD Signed: 04/03/2021 8:47 AM Workstation Name: [id number]
[2021-04-03] MEDS: ASPIRIN 325 MG TAB PO SCH (09:31)
[2021-04-03] MEDS: CLOPIDOGREL 75 MG TAB PO SCH (09:31)
--- NOTE | 2021-04-03 12:31 | Progress Note ---
Assessment and Plan Assessment and Plan # Acute CVA (cerebrovascular accident) -pt. presented with new onset left side weakness -he is with remote CVA and aphasia ?? - CT brain is remarkable for L.LACEY infarct with edema -CTA occluded L.ICA and L.LACEY with possible thrombus L.MCA? and stenosis in R.MCA -echo is pending -MRI is pending--- will try again with haldol 5 mg IM plus ativan , -ST and PT -add Plavix 75 mg daily Patient admitted and placed on daily aspirin and statin. -[id number] # Brisk reflexes -r/o Cervical mylopathy -MRI cervical spine -B12 # is pending # Hypertension -We will resume routine home medications and monitor vital signs closely. # DVT prophylaxis -Patient placed on subcutaneous heparin. #Full code status Patient is full code. PLAN 1- Review MRI brain 2-Tylenol prn headache 500 mg tid , send for ESR 3-Review echo 4- MRI cervical spine 5- Ativan prn plus haldol 5 mg for the MRI 6- ST/PT 7- Lipitor increase to 80 mg,ASA 81 mg Plus Plavix 75 mg 8- cardiac monitoring Subjective Date of service: 04/03/21 Principal diagnosis: CVA and swallowing diffiulty , aphasia Interval history: staple still with no clear speech out put complain of headache this am Fluroscopic swallow is noted MRI Brain and neck could not be done even with ativan Echo is pending Objective - Vital Sign Vital Signs - 12hr 04/03/21 04/03/21 04/03/21 03:39 08:09 10:00 Temperature 97.7 F 98.6 F Pulse Rate 72 86 Respiratory 15 20 18 Rate Blood Pressure 146/91 147/106 O2 Sat by Pulse 98 96 Oximetry - General Apperance Constitutional: comfortable - EENT EENT: PERRL, mucous membranes moist - Respiratory Respiratory: chest non-tender, lungs clear - Cardiovascular Cardiovascular: regular rate, normal S1, normal S2 Extremities: no peripheral edema bilat, no clubbing, cyanosis - Gastrointestinal Gastrointestinal: normoactive bowel sounds - Integumentary Integumentary: normal - Neurologic Cranial nerve examination: PERRL, EOMI, intact Speech examination: global aphasia Detailed motor examination: other (left side pronator drift , gait not done ) - Laboratory Findings CBC and BMP: 04/03/21 02:20 04/03/21 02:20 Abnormal Lab Findings: Abnormal Labs 03/30/21 03/30/21 03/30/21 19:58 19:58 19:58 WBC 11.4 H Hgb [place] % (Auto) 10.1 H [place] # (Auto) 1.2 H Chloride BUN 31 H Creatinine 1.4 H Glucose POC Glucose Total Creatine Kinase 498 H CK-MB (CK-2) 5.0 H HDL Cholesterol Vitamin B12 03/31/21 03/31/21 03/31/21 05:11 05:11 15:28 WBC Hgb [place] % (Auto) 9.5 H [place] # (Auto) 1.0 H Chloride BUN 27 H Creatinine Glucose POC Glucose 136 H Total Creatine Kinase CK-MB (CK-2) HDL Cholesterol 65 H Vitamin B12 04/01/21 04/01/21 04/01/21 06:11 07:21 07:21 WBC Hgb 15.7 H [place] % (Auto) 8.0 H [place] # (Auto) 0.9 H Chloride BUN 29 H Creatinine Glucose 108 H POC Glucose 109 H Total Creatine Kinase CK-MB (CK-2) HDL Cholesterol Vitamin B12 04/02/21 04/03/21 23:53 02:20 WBC Hgb [place] % (Auto) [place] # (Auto) Chloride 97.9 L BUN 24 H Creatinine 1.4 H Glucose POC Glucose Total Creatine Kinase CK-MB (CK-2) HDL Cholesterol Vitamin B12 1352 H
--- NOTE | 2021-04-03 13:39 | Progress Note ---
Assessment and Plan Assessment and plan: Acute CVA. Hypertension History of CAD/PTCA. 03/31/2021. CT scan of the head shows extensive edema involving the anteromedial right frontal lobe indicative of evolving infarct along the right LACEY distri bution. There is evidence of microvascular angiopathy with multiple old infarcts. No evidence of acute intracranial hemorrhage. CTA of the head and neck reveals occlusion of the distal right ICA and LACEY with evolving infarct. The findings are compatible with occlusion of the proximal right MCA with collateral flow distally. There is marked stenosis involving the left MCA with notable active since collateral vessels. Neurology consultation. PT/OT/ST. Continue aspirin and statin. 04/01/2021. Follow-up MRI brain for acute CVA. Continue medications for hypertension. Neurology following. PT/OT/ST. Continue aspirin and statin. 04/02/21 Patient presented with left sided weakness. MRI Brain done, report still pending. Patient has expressive aphasia from previous stroke 04/03/21 Patient had MRI done yesterday confirmed large right LACEY stroke. He is being followed by Neurology. For acute rehab placement. History Interval history: Left sided weakness aphasia Hospitalist Physical - Physical exam Narrative exam: Gen: Not in acute distress, lying in bed HEENT: Normochephalic, atraumatic Neck:supple, No JVD Lungs:Clear to auscultation bilaterally, no rales, no wheeze Heart:S1 and S2 reg, no murmurs, rubs or gallop Abd: soft, non tender, non distended, normal bowel sounds Ext: No edema, no clubbing, no cyanosis Neuro:Awake,alert, aphasia, left sided weakness - Constitutional Vitals: Temp Pulse Resp BP Pulse Ox 98.6 F 86 18 147/106 96 04/03/21 08:09 04/03/21 08:09 04/03/21 10:00 04/03/21 08:09 04/03/21 08:09 General appearance: Present: no acute distress, well-nourished HEART Score - HEART Score Troponin: Troponin T < 0.010 ng/mL (0.00-0.029) 03/30/21 19:58 Results - Labs CBC & Chem 7: 04/03/21 02:20 04/03/21 02:20 Labs: Laboratory Last Values WBC 8.6 K/mm3 (4.5-11.0) 04/03/21 02:20 RBC 4.58 M/mm3 (3.65-5.03) 04/03/21 02:20 Hgb 14.7 gm/dl (11.8-15.2) 04/03/21 02:20 Hct 43.2 % (35.5-45.6) 04/03/21 02:20 MCV 94 fl (84-94) 04/03/21 02:20 MCH 32 pg (28-32) 04/03/21 02:20 MCHC 34 % (32-34) 04/03/21 02:20 RDW 13.9 % (13.2-15.2) 04/03/21 02:20 Plt Count 213 K/mm3 (140-440) 04/03/21 02:20 Lymph % (Auto) 33.7 % (13.4-35.0) 04/01/21 07:21 [place] % (Auto) 8.0 % (0.0-7.3) H 04/01/21 07:21 Eos % (Auto) 0.3 % (0.0-4.3) 04/01/21 07:21 Baso % (Auto) 0.3 % (0.0-1.8) 04/01/21 07:21 Lymph # (Auto) 3.7 K/mm3 (1.2-5.4) 04/01/21 07:21 [place] # (Auto) 0.9 K/mm3 (0.0-0.8) H 04/01/21 07:21 Eos # (Auto) 0.0 K/mm3 (0.0-0.4) 04/01/21 07:21 Baso # (Auto) 0.0 K/mm3 (0.0-0.1) 04/01/21 07:21 Seg Neutrophils % 57.7 % (40.0-70.0) 04/01/21 07:21 Seg Neutrophils # 6.3 K/mm3 (1.8-7.7) 04/01/21 07:21 PT 13.6 Sec. (12.2-14.9) 03/31/21 05:11 INR 0.98 (0.87-1.13) 03/31/21 05:11 APTT 27.6 Sec. (24.2-36.6) 03/30/21 19:58 Thrombin Time 18.9 Sec. (15.1-19.6) 03/30/21 19:58 Sodium 139 mmol/L (137-145) 04/03/21 02:20 Potassium 4.3 mmol/L (3.6-5.0) 04/03/21 02:20 Chloride 97.9 mmol/L (98-107) L 04/03/21 02:20 Carbon Dioxide 29 mmol/L (22-30) 04/03/21 02:20 Anion Gap 16 mmol/L 04/03/21 02:20 BUN 24 mg/dL (9-20) H 04/03/21 02:20 Creatinine 1.4 mg/dL (0.8-1.3) H 04/03/21 02:20 Estimated GFR > 60 ml/min 04/03/21 02:20 BUN/Creatinine Ratio 17 % 04/03/21 02:20 Glucose 80 mg/dL (75-100) 04/03/21 02:20 POC Glucose 102 mg/dL (70-105) 04/02/21 15:29 Calcium 9.2 mg/dL (8.4-10.2) 04/03/21 02:20 Total Creatine Kinase 498 units/L (55-170) H 03/30/21 19:58 CK-MB (CK-2) 5.0 ng/mL (0.0-4.0) H 03/30/21 19:58 CK-MB (CK-2) Rel Index 1.0 (0-4) 03/30/21 19:58 Troponin T < 0.010 ng/mL (0.00-0.029) 03/30/21 19:58 Triglycerides 50 mg/dL (2-149) 03/31/21 05:11 Cholesterol 191 mg/dL (50-199) 03/31/21 05:11 LDL Cholesterol Direct 118 mg/dL (50-130) 03/31/21 05:11 HDL Cholesterol 65 mg/dL (40-59) H 03/31/21 05:11 Cholesterol/HDL Ratio 2.93 % 03/31/21 05:11 Vitamin B12 1352 pg/mL (211-911) H 04/02/21 23:53 Coronavirus (PCR) Negative (Negative) 04/01/21 Unknown Sam/IV: Voiding Method Condom Catheter Active Medications - Current Medications Current Medications: Generic Name Dose Route Start Last Admin Trade Name Freq PRN Reason Stop Dose Admin Acetaminophen 650 mg 03/30/21 22:48 04/03/21 12:17 Acetaminophen 325 Mg Tab PO 650 mg Q4H PRN Administration Pain, Mild (1-3) Aspirin 325 mg 03/31/21 10:00 04/03/21 09:31 Aspirin 325 Mg Tab PO 325 mg QDAY LORI Administration Atorvastatin Calcium 80 mg 04/02/21 22:00 04/02/21 23:09 Atorvastatin 40 Mg Tab PO 80 mg QHS LORI Administration Bisacodyl 10 mg 03/30/21 22:48 Bisacodyl 10 Mg Rect Supp [place] QDAY PRN Constipation Clopidogrel Bisulfate 75 mg 04/02/21 10:00 04/03/21 09:31 Clopidogrel 75 Mg Tab PO 75 mg QDAY LORI Administration Heparin Sodium (Porcine) 5,000 unit 03/31/21 06:00 04/03/21 05:57 Heparin 5,000 Unit/1 Ml Vial SUB-Q 5,000 unit Q8HR LORI Administration Lorazepam 1 mg 04/02/21 13:25 04/02/21 13:40 Lorazepam 2 Mg/Ml Vial IV 1 mg Q1H PRN Administration for MRI Magnesium Hydroxide 30 ml 03/30/21 22:48 Magnesium Hydroxide (Mom) Oral Liqd Udc PO Q4H PRN Constipation Metoclopramide HCl 10 mg 03/30/21 22:48 Metoclopramide 10 Mg Tab PO Q6H PRN Nausea And Vomiting Morphine Sulfate 2 mg 03/30/21 22:48 Morphine 2 Mg/1 Ml Inj IV Q4H PRN Pain, Moderate (4-6) Ondansetron HCl 4 mg 03/30/21 22:48 Ondansetron 4 Mg/2 Ml Inj IV Q8H PRN Nausea And Vomiting Promethazine HCl 25 mg 03/30/21 22:48 Promethazine 25 Mg Rect Supp [place] Q6H PRN Nausea And Vomiting Sodium Chloride 10 ml 03/31/21 10:00 04/03/21 09:31 Sodium Chloride 0.9% 10 Ml Flush Syringe IV 10 ml BID LORI Administration Sodium Chloride 10 ml 03/30/21 22:48 Sodium Chloride 0.9% 10 Ml Flush Syringe IV PRN PRN LINE FLUSH Nutrition/Malnutrition Assess - Dietary Evaluation Nutrition/Malnutrition Findings: Nutrition Notes Start: 03/31/21 10:46 Freq: Status: Active Protocol: Document 03/31/21 10:46 CALVIN (Rec: 03/31/21 10:49 [id number]) Nutrition Notes Need for Assessment generated from: MD Order,Education Initial or Follow up Brief Note Current Diagnosis Coronary Artery Disease, Hypertension,Stroke Current Diet Cardiac Subjective/Other Information MD order for diet education. Gave pt sister Candy heart healthy diet education and talked about reducing amount of sodium in pt diet. 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
--- NOTE | 2021-04-03 22:37 | Vascular Lab Report ---
"DUPLEX DOPPLER ULTRASOUND CAROTID, BILATERAL INDICATION / CLINICAL INFORMATION: stroke. COMPARISON: None available. FINDINGS: RIGHT CAROTID: - PLAQUE ESTIMATE (%): Occluded - CCA velocity: cm/sec. - ICA peak systolic velocity: cm/sec. - ICA/CCA PSV Ratio: Right Vertebral Artery: Antegrade flow. LEFT CAROTID: - PLAQUE ESTIMATE: < 50% - CCA velocity: 55 cm/sec. - ICA peak systolic velocity: 60 cm/sec. - ICA/CCA PSV Ratio: 1.1 Left Vertebral Artery: Antegrade flow. IMPRESSION: 1. Right Internal Carotid Artery: Occluded 2. Left Internal Carotid Artery: Less than 50% diameter stenosis. Velocity criteria are extrapolated from diameter data as defined by the Society of Radiologists in Ul trasound Consensus Conference, Radiology 2003; 229;340-346. Degree of || ICA PSV || Plaque || ICA/CCA Stenosis (%) || (cm/sec) || estimate (%) || PSV Ratio Normal ............. || ...<125........... || ...None......... || ...<2.0 <50................... || ...<125........... || ......<50......... || ...<2.0 50-69................ || ..125-230...... || ......>50......... || 2.0-4.0 >70 but <100... || >230.............. || .......>50........ || ...>4.0 Near occlusion || High/low/none || ...visible....... || variable Total occlusion || ....None........... || ..no lumen... || ....N/A Signer Name: [employer] THACKER Signed: 04/03/2021 10:32 PM Workstation Name: [id number]
[2021-04-04] MEDS: LORazepam 2 MG/ML VIAL IV PRN ×4 (01:56→22:24)
[2021-04-04 05:35] LABS: BUN/Creatinine Ratio 15; Blood Urea Nitrogen 18 mg/dL (9-20); Hemolysis Index 5
[2021-04-04] MEDS: HEPARIN 5,000 UNIT/1 ML VIAL SUB-Q SCH ×3 (06:03→22:24)
[2021-04-04] MEDS: CLOPIDOGREL 75 MG TAB PO SCH (09:19)
[2021-04-04] MEDS: ASPIRIN 325 MG TAB PO SCH (09:19)
[2021-04-04] MEDS ORDERED: HALOPERIDOL LACTATE 5 MG/1 ML INJ IM ONE (12:08)
--- NOTE | 2021-04-04 12:30 | Progress Note ---
Assessment and Plan Assessment and plan: Acute CVA. Hypertension History of CAD/PTCA. 03/31/2021. CT scan of the head shows extensive edema involving the anteromedial right frontal lobe indicative of evolving infarct along the right LACEY distri bution. There is evidence of microvascular angiopathy with multiple old infarcts. No evidence of acute intracranial hemorrhage. CTA of the head and neck reveals occlusion of the distal right ICA and LACEY with evolving infarct. The findings are compatible with occlusion of the proximal right MCA with collateral flow distally. There is marked stenosis involving the left MCA with notable active since collateral vessels. Neurology consultation. PT/OT/ST. Continue aspirin and statin. 04/01/2021. Follow-up MRI brain for acute CVA. Continue medications for hypertension. Neurology following. PT/OT/ST. Continue aspirin and statin. 04/02/21 Patient presented with left sided weakness. MRI Brain done, report still pending. Patient has expressive aphasia from previous stroke 04/03/21 Patient had MRI done yesterday confirmed large right LACEY stroke. He is being followed by Neurology. For acute rehab placement. 04/04/21 Patient with acute ischemic stroke with large right LACEY lesion. MRI cer vical spine was ordered but after several attempts even with Ativan iv and Haldol iv he coul;d not tolerate so CT Cervical spine ordered instead. field scout had a bed for him at Rehab facility but awaiting tests and clearance from Neurology. History Interval history: Left sided weakness aphasia Difficulty obtaining MRI cervical spine Hospitalist Physical - Physical exam Narrative exam: Gen: Not in acute distress, lying in bed HEENT: Normochephalic, atraumatic Neck:supple, No JVD Lungs:Clear to auscultation bilaterally, no rales, no wheeze Heart:S1 and S2 reg, no murmurs, rubs or gallop Abd: soft, non tender, non distended, normal bowel sounds Ext: No edema, no clubbing, no cyanosis Neuro:Awake,alert, aphasia, left sided weakness - Constitutional Vitals: Temp Pulse Resp BP Pulse Ox 99.0 F 101 H 18 143/92 99 04/04/21 10:57 04/04/21 10:57 04/04/21 10:57 04/04/21 10:57 04/04/21 10:57 General appearance: Present: no acute distress, well-nourished HEART Score - HEART Score Troponin: Troponin T < 0.010 ng/mL (0.00-0.029) 03/30/21 19:58 Results - Labs CBC & Chem 7: 04/03/21 02:20 04/04/21 04:49 Labs: Laboratory Last Values WBC 8.6 K/mm3 (4.5-11.0) 04/03/21 02:20 RBC 4.58 M/mm3 (3.65-5.03) 04/03/21 02:20 Hgb 14.7 gm/dl (11.8-15.2) 04/03/21 02:20 Hct 43.2 % (35.5-45.6) 04/03/21 02:20 MCV 94 fl (84-94) 04/03/21 02:20 MCH 32 pg (28-32) 04/03/21 02:20 MCHC 34 % (32-34) 04/03/21 02:20 RDW 13.9 % (13.2-15.2) 04/03/21 02:20 Plt Count 213 K/mm3 (140-440) 04/03/21 02:20 Lymph % (Auto) 33.7 % (13.4-35.0) 04/01/21 07:21 [place] % (Auto) 8.0 % (0.0-7.3) H 04/01/21 07:21 Eos % (Auto) 0.3 % (0.0-4.3) 04/01/21 07:21 Baso % (Auto) 0.3 % (0.0-1.8) 04/01/21 07:21 Lymph # (Auto) 3.7 K/mm3 (1.2-5.4) 04/01/21 07:21 [place] # (Auto) 0.9 K/mm3 (0.0-0.8) H 04/01/21 07:21 Eos # (Auto) 0.0 K/mm3 (0.0-0.4) 04/01/21 07:21 Baso # (Auto) 0.0 K/mm3 (0.0-0.1) 04/01/21 07:21 Seg Neutrophils % 57.7 % (40.0-70.0) 04/01/21 07:21 Seg Neutrophils # 6.3 K/mm3 (1.8-7.7) 04/01/21 07:21 ESR 1 mm/Hr (0-20) 04/03/21 02:40 PT 13.6 Sec. (12.2-14.9) 03/31/21 05:11 INR 0.98 (0.87-1.13) 03/31/21 05:11 APTT 27.6 Sec. (24.2-36.6) 03/30/21 19:58 Thrombin Time 18.9 Sec. (15.1-19.6) 03/30/21 19:58 Sodium 137 mmol/L (137-145) 04/04/21 04:49 Potassium 3.7 mmol/L (3.6-5.0) 04/04/21 04:49 Chloride 99.4 mmol/L (98-107) 04/04/21 04:49 Carbon Dioxide 27 mmol/L (22-30) 04/04/21 04:49 Anion Gap 14 mmol/L 04/04/21 04:49 BUN 18 mg/dL (9-20) 04/04/21 04:49 Creatinine 1.2 mg/dL (0.8-1.3) 04/04/21 04:49 Estimated GFR > 60 ml/min 04/04/21 04:49 BUN/Creatinine Ratio 15 % 04/04/21 04:49 Glucose 94 mg/dL (75-100) 04/04/21 04:49 POC Glucose 102 mg/dL (70-105) 04/02/21 15:29 Calcium 9.0 mg/dL (8.4-10.2) 04/04/21 04:49 Total Creatine Kinase 498 units/L (55-170) H 03/30/21 19:58 CK-MB (CK-2) 5.0 ng/mL (0.0-4.0) H 03/30/21 19:58 CK-MB (CK-2) Rel Index 1.0 (0-4) 03/30/21 19:58 Troponin T < 0.010 ng/mL (0.00-0.029) 03/30/21 19:58 Triglycerides 50 mg/dL (2-149) 03/31/21 05:11 Cholesterol 191 mg/dL (50-199) 03/31/21 05:11 LDL Cholesterol Direct 118 mg/dL (50-130) 03/31/21 05:11 HDL Cholesterol 65 mg/dL (40-59) H 03/31/21 05:11 Cholesterol/HDL Ratio 2.93 % 03/31/21 05:11 Vitamin B12 1352 pg/mL (211-911) H 04/02/21 23:53 Coronavirus (PCR) Negative (Negative) 04/01/21 Unknown Sam/IV: Voiding Method Urinal Active Medications - Current Medications Current Medications: Generic Name Dose Route Start Last Admin Trade Name Freq PRN Reason Stop Dose Admin Acetaminophen 650 mg 03/30/21 22:48 04/03/21 12:17 Acetaminophen 325 Mg Tab PO 650 mg Q4H PRN Administration Pain, Mild (1-3) Aspirin 325 mg 03/31/21 10:00 04/04/21 09:19 Aspirin 325 Mg Tab PO 325 mg QDAY LORI Administration Atorvastatin Calcium 80 mg 04/02/21 22:00 04/03/21 22:16 Atorvastatin 40 Mg Tab PO 80 mg QHS LORI Administration Bisacodyl 10 mg 03/30/21 22:48 Bisacodyl 10 Mg Rect Supp PA QDAY PRN Constipation Clopidogrel Bisulfate 75 mg 04/02/21 10:00 04/04/21 09:19 Clopidogrel 75 Mg Tab PO 75 mg QDAY LORI Administration Heparin Sodium (Porcine) 5,000 unit 03/31/21 06:00 04/04/21 06:03 Heparin 5,000 Unit/1 Ml Vial SUB-Q 5,000 unit Q8HR LORI Administration Lorazepam 1 mg 04/02/21 13:25 04/04/21 12:16 Lorazepam 2 Mg/Ml Vial IV 1 mg Q1H PRN Administration for MRI Magnesium Hydroxide 30 ml 03/30/21 22:48 Magnesium Hydroxide (Mom) Oral Liqd Udc PO Q4H PRN Constipation Metoclopramide HCl 10 mg 03/30/21 22:48 Metoclopramide 10 Mg Tab PO Q6H PRN Nausea And Vomiting Morphine Sulfate 2 mg 03/30/21 22:48 Morphine 2 Mg/1 Ml Inj IV Q4H PRN Pain, Moderate (4-6) Ondansetron HCl 4 mg 03/30/21 22:48 Ondansetron 4 Mg/2 Ml Inj IV Q8H PRN Nausea And Vomiting Promethazine HCl 25 mg 03/30/21 22:48 Promethazine 25 Mg Rect Supp PA Q6H PRN Nausea And Vomiting Sodium Chloride 10 ml 03/31/21 10:00 04/04/21 09:19 Sodium Chloride 0.9% 10 Ml Flush Syringe IV 10 ml BID LORI Administration Sodium Chloride 10 ml 03/30/21 22:48 Sodium Chloride 0.9% 10 Ml Flush Syringe IV PRN PRN LINE FLUSH Nutrition/Malnutrition Assess - Dietary Evaluation Nutrition/Malnutrition Findings: Nutrition Notes Start: 03/31/21 10:46 Freq: Status: Active Protocol: Document 03/31/21 10:46 (Rec: 03/31/21 10:49 [id number]) Nutrition Notes Need for Assessment generated from: MD Order,Education Initial or Follow up Brief Note Current Diagnosis Coronary Artery Disease, Hypertension,Stroke Current Diet Cardiac Subjective/Other Information MD order for diet education. Gave pt sister Candy heart healthy diet education and talked about reducing amount of sodium in pt diet. 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
--- NOTE | 2021-04-04 13:21 | Progress Note ---
Assessment and Plan Assessment and Plan # Acute CVA (cerebrovascular accident) -pt. presented with new onset left side weakness -he is with remote CVA and aphasia ?? - CT brain is remarkable for L.LACEY infarct with edema -CTA occluded L.ICA and L.LACEY with possible thrombus L.MCA? and stenosis in R.MCA -echo is pending -MRI brain right LACEY subacute infarct -MRI cervical is pending -ST and PT -add Plavix 75 mg daily Patient admitted and placed on daily aspirin 81 and statin.80 mg -LDL#181 # Brisk reflexes -r/o Cervical mylopathy -MRI cervical spine -B12 # is WNL # Hypertension -We will resume routine home medications and monitor vital signs closely. # DVT prophylaxis -Patient placed on subcutaneous heparin. #Full code status Patient is full code. PLAN - MRI cervical spine r/o mylopathy 5- Ativan prn plus haldol 5 mg for the MRI 6- ST/PT 7- Lipitor increase to 80 mg,ASA 81 mg Plus Plavix 75 mg 8- cardiac monitoring Subjective Date of service: 04/04/21 Principal diagnosis: CVA and swallowing diffiulty , aphasia Interval history: staple still with no clear speech out put no headache this am Fluroscopic swallow is noted MRI Brain subacute right ICA does not explain his speech problem neck could not be done even with ativan Echo 65-70% EF with left ventricular hypertrophy. Objective - Vital Sign Vital Signs - 12hr 04/04/21 04/04/21 04/04/21 03:30 04:00 07:27 Temperature 98.1 F 98.5 F Pulse Rate 82 91 H Pulse Rate [ Left Dorsalis Pedis] Pulse Rate [ Right Dorsalis Pedis] Respiratory 18 18 Rate Blood Pressure 133/94 139/94 O2 Sat by Pulse 99 91 Oximetry 04/04/21 04/04/21 10:00 10:57 Temperature 99.0 F Pulse Rate 101 H Pulse Rate [ 87 Left Dorsalis Pedis] Pulse Rate [ 87 Right Dorsalis Pedis] Respiratory 20 18 Rate Blood Pressure 143/92 O2 Sat by Pulse 99 Oximetry - General Apperance Constitutional: comfortable - EENT EENT: PERRL, mucous membranes moist - Respiratory Respiratory: chest non-tender, lungs clear, rhonchi - Cardiovascular Cardiovascular: regular rate, normal S1, normal S2 Extremities: no peripheral edema bilat - Gastrointestinal Gastrointestinal: normoactive bowel sounds - Integumentary Integumentary: normal - Neurologic Cranial nerve examination: PERRL, intact (left facial droop , no speech output but able to write down !!!) Speech examination: motor aphasia Detailed motor examination: other (left upper and to lesser extent lower Ext weakness , gait not done , he is with brisk reflexes and both lower ext.no clonus/ ) Motor examination - right side: 10/23: biceps, triceps, wrist flexion, wrist extension, hide handler, hip flexors, knee extensors, dorsiflexion, toe extension (EHL), plantarflexion - Laboratory Findings CBC and BMP: 04/03/21 02:20 04/04/21 04:49 Abnormal Lab Findings: Abnormal Labs 03/30/21 03/30/21 03/30/21 19:58 19:58 19:58 WBC 11.4 H Hgb [place] % (Auto) 10.1 H [place] # (Auto) 1.2 H Chloride BUN 31 H Creatinine 1.4 H Glucose POC Glucose Total Creatine Kinase 498 H CK-MB (CK-2) 5.0 H HDL Cholesterol Vitamin B12 03/31/21 03/31/21 03/31/21 05:11 05:11 15:28 WBC Hgb [place] % (Auto) 9.5 H [place] # (Auto) 1.0 H Chloride BUN 27 H Creatinine Glucose POC Glucose 136 H Total Creatine Kinase CK-MB (CK-2) HDL Cholesterol 65 H Vitamin B12 04/01/21 04/01/21 04/01/21 06:11 07:21 07:21 WBC Hgb 15.7 H [place] % (Auto) 8.0 H [place] # (Auto) 0.9 H Chloride BUN 29 H Creatinine Glucose 108 H POC Glucose 109 H Total Creatine Kinase CK-MB (CK-2) HDL Cholesterol Vitamin B12 04/02/21 04/03/21 23:53 02:20 WBC Hgb [place] % (Auto) [place] # (Auto) Chloride 97.9 L BUN 24 H Creatinine 1.4 H Glucose POC Glucose Total Creatine Kinase CK-MB (CK-2) HDL Cholesterol Vitamin B12 1352 H
[2021-04-04] MEDS: ACETAMINOPHEN 325 MG TAB PO PRN (15:26)
--- NOTE | 2021-04-04 16:47 | Cat Scan Report ---
CT cervical spine wo con INDICATION: upper extremities weakness. TECHNIQUE: All CT scans at this location are performed using CT dose reduction for ALARA by means of automated e xposure control. COMPARISON: None available. FINDINGS: There is no fracture in the cervical spine. Alignment is normal. At C2-3, there is mild degenerative disease with disc osteophyte complex causing mild canal stenosis. At C6-7, there is mild disc height loss with disc osteophyte complex causing mild spinal canal stenos is. There is no appreciable neural foraminal narrowing throughout the cervical spine. There is mild DJD i n the atlantodental articulation. The visualized prevertebral soft tissues demonstrate atherosclerotic calcification in both carotid bu lbs without additional concerning abnormality. IMPRESSION: 1. Degenerative findings at C2-3 and C6-7 in the cervical spine as detailed above. Signer Name: Florian Kessler MD Signed: 04/04/2021 4:43 PM Workstation Name: [id number]
[2021-04-05] MEDS: hydrALAZINE 20 MG/1 ML INJ IV PRN ×2 (00:57→12:20)
[2021-04-05] MEDS: HEPARIN 5,000 UNIT/1 ML VIAL SUB-Q SCH ×3 (05:55→21:40)
[2021-04-05] MEDS ORDERED: LORazepam 2 MG/ML VIAL IM ONE (06:02)
[2021-04-05] MEDS: ASPIRIN 325 MG TAB PO SCH (09:41)
[2021-04-05] MEDS: CLOPIDOGREL 75 MG TAB PO SCH (09:44)
[2021-04-05] MEDS: ACETAMINOPHEN 325 MG TAB PO PRN ×3 (09:48→20:52)
[2021-04-05] MEDS: LORazepam 2 MG/ML VIAL IV PRN (10:16)
[2021-04-05] MEDS ORDERED: LORazepam 2 MG/ML VIAL IV PRN (10:43)
[2021-04-05] MEDS ORDERED: levETIRAcetam 1,000 MG in DEXTROSE 5% IN WATER 100 ML IV ONE (10:49)
[2021-04-05] MEDS ORDERED: LORazepam 2 MG/ML VIAL IV ONE (10:57)
[2021-04-05] MEDS ORDERED: levETIRAcetam 500 MG TAB PO SCH (11:00)
--- NOTE | 2021-04-05 11:10 | Progress Note ---
Assessment and Plan Assessment and Plan # Possible new onset partial seizure - today he is with left side stiffness and lack of response -EEG today -Ativan 2 mg prn -Keppra 1000 IV once then 500 mg bid # Acute CVA (cerebrovascular accident) -pt. presented with new onset left side weakness -he is with remote CVA and aphasia ?? - CT brain is remarkable for L.LACEY infarct with edema -CTA occluded L.ICA and L.LACEY with possible thrombus L.MCA? and stenosis in R.MCA -echo is pending -MRI brain right LACEY subacute infarct -MRI cervical is pending -ST and PT -add Plavix 75 mg daily Patient admitted and placed on daily aspirin 81 and statin.80 mg -LDL#181 # Brisk reflexes -r/o Cervical mylopathy -MRI cervical spine could not be done -CT cervical is remarkable for cervical spinal stenosis C2-3 and C6-7 -B12 # is WNL # Hypertension -We will resume routine home medications and monitor vital signs closely. # DVT prophylaxis -Patient placed on subcutaneous heparin. #Full code status Patient is full code. PLAN 1- Keppra 500 mg bid 2- EEG today 3- Ativan 2 mg prn for seizure 4- ST/PT 5- Lipitor increase to 80 mg,ASA 81 mg Plus Plavix 75 mg 8- cardiac monitoring will follow as needed Subjective Date of service: 04/05/21 Principal diagnosis: CVA and swallowing diffiulty , aphasia Interval history: today pt. is noted to be with left> right stiffness and he is agitated with eyes deviated to left -- findings is suggestive of partial seizure 2 mg IV ativan given -- keppra 1000 mg once then 500 mg bid - still with no clear speech out put no headache this am -Fluroscopic swallow is noted -MRI Brain subacute right ICA -does not explain his speech problem -neck could not be done even with ativan -- hd CT cervical is remarkable for spinal stenosis at C2-3 and C6-7 Echo 65-70% EF with left ventricular hypertrophy. Objective - Vital Sign Vital Signs - 12hr 04/05/21 04/05/21 04/05/21 00:05 00:57 04:12 Temperature 98.0 F 98.0 F Pulse Rate 129 H 110 H Respiratory 18 18 Rate Blood Pressure 194/159 166/101 111/72 O2 Sat by Pulse 98 Oximetry 04/05/21 08:36 Temperature 98.7 F Pulse Rate 118 H Respiratory 20 Rate Blood Pressure 118/82 O2 Sat by Pulse 94 Oximetry - General Apperance Constitutional: other (left side stiffness and lack of response) - EENT EENT: PERRL - Respiratory Respiratory: chest non-tender, lungs clear, rhonchi - Cardiovascular Cardiovascular: regular rate, normal S1, normal S2 Extremities: no peripheral edema bilat, no clubbing, cyanosis - Gastrointestinal Gastrointestinal: normoactive bowel sounds - Integumentary Integumentary: normal - Neurologic Cranial nerve examination: PERRL, EOMI, other (left facial droop mild , left side weakness> right .) - Laboratory Findings CBC and BMP: 04/03/21 02:20 04/04/21 04:49 Abnormal Lab Findings: Abnormal Labs 03/30/21 03/30/21 03/30/21 19:58 19:58 19:58 WBC 11.4 H Hgb [place] % (Auto) 10.1 H [place] # (Auto) 1.2 H Chloride BUN 31 H Creatinine 1.4 H Glucose POC Glucose Total Creatine Kinase 498 H CK-MB (CK-2) 5.0 H HDL Cholesterol Vitamin B12 03/31/21 03/31/21 03/31/21 05:11 05:11 15:28 WBC Hgb [place] % (Auto) 9.5 H [place] # (Auto) 1.0 H Chloride BUN 27 H Creatinine Glucose POC Glucose 136 H Total Creatine Kinase CK-MB (CK-2) HDL Cholesterol 65 H Vitamin B12 04/01/21 04/01/21 04/01/21 06:11 07:21 07:21 WBC Hgb 15.7 H [place] % (Auto) 8.0 H [place] # (Auto) 0.9 H Chloride BUN 29 H Creatinine Glucose 108 H POC Glucose 109 H Total Creatine Kinase CK-MB (CK-2) HDL Cholesterol Vitamin B12 04/02/21 04/03/21 23:53 02:20 WBC Hgb [place] % (Auto) [place] # (Auto) Chloride 97.9 L BUN 24 H Creatinine 1.4 H Glucose POC Glucose Total Creatine Kinase CK-MB (CK-2) HDL Cholesterol Vitamin B12 1352 H
--- NOTE | 2021-04-05 12:16 | Progress Note ---
Assessment and Plan Assessment and plan: Acute CVA. Hypertension History of CAD/PTCA. 03/31/2021. CT scan of the head shows extensive edema involving the anteromedial right frontal lobe indicative of evolving infarct along the right LACEY distri bution. There is evidence of microvascular angiopathy with multiple old infarcts. No evidence of acute intracranial hemorrhage. CTA of the head and neck reveals occlusion of the distal right ICA and LACEY with evolving infarct. The findings are compatible with occlusion of the proximal right MCA with collateral flow distally. There is marked stenosis involving the left MCA with notable active since collateral vessels. Neurology consultation. PT/OT/ST. Continue aspirin and statin. 04/01/2021. Follow-up MRI brain for acute CVA. Continue medications for hypertension. Neurology following. PT/OT/ST. Continue aspirin and statin. 04/02/21 Patient presented with left sided weakness. MRI Brain done, report still pending. Patient has expressive aphasia from previous stroke 04/03/21 Patient had MRI done yesterday confirmed large right LACEY stroke. He is being followed by Neurology. For acute rehab placement. 04/04/21 Patient with acute ischemic stroke with large right LACEY lesion. MRI cer vical spine was ordered but after several attempts even with Ativan iv and Haldol iv he could not tolerate so CT Cervical spine ordered instead. 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 04/05/21 Patient with acute ischemic stroke with large right LACEY lesion. Plan was for him to go to Acute Rehab. He had a bed offer yesterday but was waiting for MRI cervical spine to be done. He could not tolerate MRI, so CT Cervical spine was done instead. However this morning he had seizures witnessed by Neurologist. He was given Ativan iv, Keppra iv, and EEG done. I discussed with sister at bedside, gave update and answered all questions. i also discussed with Neurology and he recommends to transfer to ICU if any more seizures. History Interval history: Left sided weakness aphasia Had seizures this morning witnessed by Neurology Hospitalist Physical - Physical exam Narrative exam: Gen: Not in acute distress, lying in bed HEENT: Normochephalic, atraumatic Neck:supple, No JVD Lungs:Clear to auscultation bilaterally, no rales, no wheeze Heart:S1 and S2 reg, no murmurs, rubs or gallop Abd: soft, non tender, non distended, normal bowel sounds Ext: No edema, no clubbing, no cyanosis Neuro: Lethargic, sedated after seizures, aphasia, left sided weakness - Constitutional Vitals: Temp Pulse Resp BP Pulse Ox 98.7 F 118 H 20 118/82 94 04/05/21 08:36 04/05/21 08:36 04/05/21 08:36 04/05/21 08:36 04/05/21 08:36 General appearance: Present: no acute distress, well-nourished HEART Score - HEART Score Troponin: Troponin T < 0.010 ng/mL (0.00-0.029) 03/30/21 19:58 Results - Labs CBC & Chem 7: 04/03/21 02:20 04/04/21 04:49 Labs: Laboratory Last Values WBC 8.6 K/mm3 (4.5-11.0) 04/03/21 02:20 RBC 4.58 M/mm3 (3.65-5.03) 04/03/21 02:20 Hgb 14.7 gm/dl (11.8-15.2) 04/03/21 02:20 Hct 43.2 % (35.5-45.6) 04/03/21 02:20 MCV 94 fl (84-94) 04/03/21 02:20 MCH 32 pg (28-32) 04/03/21 02:20 MCHC 34 % (32-34) 04/03/21 02:20 RDW 13.9 % (13.2-15.2) 04/03/21 02:20 Plt Count 213 K/mm3 (140-440) 04/03/21 02:20 Lymph % (Auto) 33.7 % (13.4-35.0) 04/01/21 07:21 [place] % (Auto) 8.0 % (0.0-7.3) H 04/01/21 07:21 Eos % (Auto) 0.3 % (0.0-4.3) 04/01/21 07:21 Baso % (Auto) 0.3 % (0.0-1.8) 04/01/21 07:21 Lymph # (Auto) 3.7 K/mm3 (1.2-5.4) 04/01/21 07:21 [place] # (Auto) 0.9 K/mm3 (0.0-0.8) H 04/01/21 07:21 Eos # (Auto) 0.0 K/mm3 (0.0-0.4) 04/01/21 07:21 Baso # (Auto) 0.0 K/mm3 (0.0-0.1) 04/01/21 07:21 Seg Neutrophils % 57.7 % (40.0-70.0) 04/01/21 07:21 Seg Neutrophils # 6.3 K/mm3 (1.8-7.7) 04/01/21 07:21 ESR 1 mm/Hr (0-20) 04/03/21 02:40 PT 13.6 Sec. (12.2-14.9) 03/31/21 05:11 INR 0.98 (0.87-1.13) 03/31/21 05:11 APTT 27.6 Sec. (24.2-36.6) 03/30/21 19:58 Thrombin Time 18.9 Sec. (15.1-19.6) 03/30/21 19:58 Sodium 137 mmol/L (137-145) 04/04/21 04:49 Potassium 3.7 mmol/L (3.6-5.0) 04/04/21 04:49 Chloride 99.4 mmol/L (98-107) 04/04/21 04:49 Carbon Dioxide 27 mmol/L (22-30) 04/04/21 04:49 Anion Gap 14 mmol/L 04/04/21 04:49 BUN 18 mg/dL (9-20) 04/04/21 04:49 Creatinine 1.2 mg/dL (0.8-1.3) 04/04/21 04:49 Estimated GFR > 60 ml/min 04/04/21 04:49 BUN/Creatinine Ratio 15 % 04/04/21 04:49 Glucose 94 mg/dL (75-100) 04/04/21 04:49 POC Glucose 102 mg/dL (70-105) 04/02/21 15:29 Calcium 9.0 mg/dL (8.4-10.2) 04/04/21 04:49 Total Creatine Kinase 498 units/L (55-170) H 03/30/21 19:58 CK-MB (CK-2) 5.0 ng/mL (0.0-4.0) H 03/30/21 19:58 CK-MB (CK-2) Rel Index 1.0 (0-4) 03/30/21 19:58 Troponin T < 0.010 ng/mL (0.00-0.029) 03/30/21 19:58 Triglycerides 50 mg/dL (2-149) 03/31/21 05:11 Cholesterol 191 mg/dL (50-199) 03/31/21 05:11 LDL Cholesterol Direct 118 mg/dL (50-130) 03/31/21 05:11 HDL Cholesterol 65 mg/dL (40-59) H 03/31/21 05:11 Cholesterol/HDL Ratio 2.93 % 03/31/21 05:11 Vitamin B12 1352 pg/mL (211-911) H 04/02/21 23:53 Coronavirus (PCR) Negative (Negative) 04/01/21 Unknown Sam/IV: Voiding Method Condom Catheter Active Medications - Current Medications Current Medications: Generic Name Dose Route Start Last Admin Trade Name Freq PRN Reason Stop Dose Admin Acetaminophen 650 mg 03/30/21 22:48 04/05/21 09:48 Acetaminophen 325 Mg Tab PO 650 mg Q4H PRN Administration Pain, Mild (1-3) Aspirin 325 mg 03/31/21 10:00 04/05/21 09:41 Aspirin 325 Mg Tab PO 325 mg QDAY LORI Administration Atorvastatin Calcium 80 mg 04/02/21 22:00 04/04/21 22:23 Atorvastatin 40 Mg Tab PO 80 mg QHS LORI Administration Bisacodyl 10 mg 03/30/21 22:48 Bisacodyl 10 Mg Rect Supp IN QDAY PRN Constipation Clopidogrel Bisulfate 75 mg 04/02/21 10:00 04/05/21 09:44 Clopidogrel 75 Mg Tab PO 75 mg QDAY LORI Administration Heparin Sodium (Porcine) 5,000 unit 03/31/21 06:00 04/05/21 05:55 Heparin 5,000 Unit/1 Ml Vial SUB-Q 5,000 unit Q8HR LORI Administration Hydralazine HCl 10 mg 04/05/21 00:48 04/05/21 00:57 Hydralazine 20 Mg/1 Ml Inj IV 10 mg Q6HR PRN Administration SBP >/=160; DBP >/=100 Levetiracetam 500 mg 04/05/21 11:00 04/05/21 12:10 Levetiracetam 500 Mg Tab PO 500 mg BID LORI Administration Lorazepam 2 mg 04/05/21 10:43 Lorazepam 2 Mg/Ml Vial IV Q4H PRN Agitation Magnesium Hydroxide 30 ml 03/30/21 22:48 Magnesium Hydroxide (Mom) Oral Liqd Udc PO Q4H PRN Constipation Metoclopramide HCl 10 mg 03/30/21 22:48 Metoclopramide 10 Mg Tab PO Q6H PRN Nausea And Vomiting Morphine Sulfate 2 mg 03/30/21 22:48 04/05/21 00:19 Morphine 2 Mg/1 Ml Inj IV 2 mg Q4H PRN Administration Pain, Moderate (4-6) Ondansetron HCl 4 mg 03/30/21 22:48 Ondansetron 4 Mg/2 Ml Inj IV Q8H PRN Nausea And Vomiting Promethazine HCl 25 mg 03/30/21 22:48 Promethazine 25 Mg Rect Supp IN Q6H PRN Nausea And Vomiting Sodium Chloride 10 ml 03/31/21 10:00 04/04/21 22:24 Sodium Chloride 0.9% 10 Ml Flush Syringe IV 10 ml BID LORI Administration Sodium Chloride 10 ml 03/30/21 22:48 Sodium Chloride 0.9% 10 Ml Flush Syringe IV PRN PRN LINE FLUSH Nutrition/Malnutrition Assess - Dietary Evaluation Nutrition/Malnutrition Findings: Nutrition Notes Start: 03/31/21 10:46 Freq: Status: Active Protocol: Document 03/31/21 10:46 (Rec: 03/31/21 10:49 [email or web address]) Nutrition Notes Need for Assessment generated from: MD Order,Education Initial or Follow up Brief Note Current Diagnosis Coronary Artery Disease, Hypertension,Stroke Current Diet Cardiac Subjective/Other Information MD order for diet education. Gave pt sister Candy heart healthy diet education and talked about reducing amount of sodium in pt diet. 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
[2021-04-05 15:40] LABS: Hematocrit 45.9 % (35.5-45.6); Mean Corpuscular HGB Conc 35 % (32-34); Mean Corpuscular Volume 92 fl (84-94); Platelet Count 286 K/mm3 (140-440); Red Blood Count 4.99 M/mm3 (3.65-5.03); Red Cell Distribution Width 13.5 % (13.2-15.2)
[2021-04-05 16:12] LABS: Calcium 10.1 mg/dL (8.4-10.2)
[2021-04-05] MEDS ORDERED: SODIUM CHLORIDE 0.9% 1000 ML 1,000 ML IV SCH (20:45)
[2021-04-05] MEDS: levETIRAcetam 500 MG in DEXTROSE 5% IN WATER 100 ML IV SCH (21:40)
[2021-04-06] MEDS: HEPARIN 5,000 UNIT/1 ML VIAL SUB-Q SCH ×3 (05:34→22:52)
[2021-04-06 08:41] LABS: Calcium 9.2 mg/dL (8.4-10.2)
[2021-04-06 08:45] LABS: Hematocrit 42.4 % (35.5-45.6); Hemoglobin 14.5 gm/dl (11.8-15.2); Mean Corpuscular HGB Conc 34 % (32-34); Mean Corpuscular Volume 94 fl (84-94); Platelet Count 251 K/mm3 (140-440); Red Cell Distribution Width 14.2 % (13.2-15.2)
--- NOTE | 2021-04-06 09:02 | XRay Report ---
. XR chest 1V ap INDICATION / CLINICAL INFORMATION: fever. COMPARISON: 04/03/2021 FINDINGS: SUPPORT DEVICES: None. HEART /PULMONARY VASCULATURE: No significant abnormality. LUNGS / PLEURA: There is opacity within the retrocardiac/left basilar region. Right lung is clear. No pleural effusion. No pneumothorax. ADDITIONAL FINDINGS: No significant additional findings. IMPRESSION: Left basilar airspace opacity, may reflect atelectasis or pneumonia. Signer Name: Conor Estes MD Signed: 04/06/2021 8:57 AM Workstation Name: [id number]
[2021-04-06] MEDS ORDERED: CEFEPIME/NS 2 GM/100 ML 2 GM/100 ML BAG IV SCH (10:00)
[2021-04-06] MEDS ORDERED: VANCOMYCIN PHARMACY TO DOSE IV SCH (10:00)
[2021-04-06] MEDS ORDERED: VANCOMYCIN 1,500 MG in SODIUM CHLORIDE 0.9% 500 ML 500 ML IV ONE (10:00)
[2021-04-06] MEDS: levETIRAcetam 500 MG in DEXTROSE 5% IN WATER 100 ML IV SCH ×2 (10:20→22:51)
--- NOTE | 2021-04-06 10:26 | Progress Note ---
Assessment and Plan Assessment and Plan # Possible new onset partial seizure - today he is with left side stiffness and lack of response -EEG is remarkable for mild slowing no epileptiform discharges is noted -Ativan 2 mg prn -Keppra 1000 IV once then 500 mg bid # Acute CVA (cerebrovascular accident) -pt. presented with new onset left side weakness -he is with remote CVA and aphasia ?? - CT brain is remarkable for L.LACEY infarct with edema -CTA occluded L.ICA and L.LACEY with possible thrombus L.MCA? and stenosis in R.MCA -echo is pending -MRI brain right LACEY subacute infarct -MRI cervical is unable to do -ST and PT -add Plavix 75 mg daily Patient admitted and placed on daily aspirin 81 and statin.80 mg -LDL#181 -repeat MRI brain today due to change in exam and worsening left side weakness ? R/O New CVA # Brisk reflexes -r/o Cervical mylopathy -MRI cervical spine could not be done -CT cervical is remarkable for cervical spinal stenosis C2-3 and C6-7 -B12 # is WNL # Hypertension -We will resume routine home medications and monitor vital signs closely. # DVT prophylaxis -Patient placed on subcutaneous heparin. #Full code status Patient is full code. PLAN 1- Keppra 500 mg bid 2- EEG No sign of seizure 3- Ativan 2 mg prn for seizure 4- ST/PT 5- Lipitor increase to 80 mg,ASA 81 mg Plus Plavix 75 mg 6- cardiac monitoring 7- Repeat MRI brain today will follow as needed Subjective Date of service: 04/06/21 Principal diagnosis: CVA and swallowing diffiulty , aphasia Interval history: today pt. is noted to be with left> right stiffness and he is agitated with eyes deviated to left -- findings is suggestive of partial seizure 2 mg IV ativan given -- keppra 1000 mg once then 500 mg bid - still with no clear speech out put no headache this am -Fluroscopic swallow is noted -MRI Brain subacute right ICA 3 days ago -does not explain his speech problem -neck could not be done even with ativan -- had CT cervical is remarkable for spinal stenosis at C2-3 and C6-7 -Echo 65-70% EF with left ventricular hypertrophy. Objective - Vital Sign Vital Signs - 12hr 04/06/21 04/06/21 04/06/21 00:00 00:19 07:41 Temperature 100.0 F H Pulse Rate 118 H Pulse Rate [ 118 H From Monitor] Respiratory 20 20 Rate Blood Pressure 95/71 O2 Sat by Pulse 93 98 Oximetry - General Apperance Constitutional: comfortable, other (alert today no clear speech output ,left side weakness is worse , no seizure is reported) - EENT EENT: PERRL, mucous membranes moist - Respiratory Respiratory: lungs clear, rhonchi - Cardiovascular Cardiovascular: regular rate, normal S1, normal S2 Extremities: no peripheral edema bilat, no clubbing, cyanosis - Gastrointestinal Gastrointestinal: normoactive bowel sounds - Integumentary Integumentary: normal - Neurologic Cranial nerve examination: PERRL, EOMI, other (left facial droop , no speech output ?) - Laboratory Findings CBC and BMP: 04/06/21 08:01 04/06/21 08:01 Abnormal Lab Findings: Abnormal Labs 03/30/21 03/30/21 03/30/21 19:58 19:58 19:58 WBC 11.4 H Hgb Hct MCHC [place] % (Auto) 10.1 H [place] # (Auto) 1.2 H Chloride Carbon Dioxide BUN 31 H Creatinine 1.4 H Glucose POC Glucose Total Creatine Kinase 498 H CK-MB (CK-2) 5.0 H HDL Cholesterol Vitamin B12 03/31/21 03/31/21 03/31/21 05:11 05:11 15:28 WBC Hgb Hct MCHC [place] % (Auto) 9.5 H [place] # (Auto) 1.0 H Chloride Carbon Dioxide BUN 27 H Creatinine Glucose POC Glucose 136 H Total Creatine Kinase CK-MB (CK-2) HDL Cholesterol 65 H Vitamin B12 04/01/21 04/01/21 04/01/21 06:11 07:21 07:21 WBC Hgb 15.7 H Hct MCHC [place] % (Auto) 8.0 H [place] # (Auto) 0.9 H Chloride Carbon Dioxide BUN 29 H Creatinine Glucose 108 H POC Glucose 109 H Total Creatine Kinase CK-MB (CK-2) HDL Cholesterol Vitamin B12 04/02/21 04/03/21 04/05/21 23:53 02:20 14:55 WBC 12.3 H Hgb 16.0 H Hct 45.9 H MCHC 35 H [place] % (Auto) [place] # (Auto) Chloride 97.9 L Carbon Dioxide BUN 24 H Creatinine 1.4 H Glucose POC Glucose Total Creatine Kinase CK-MB (CK-2) HDL Cholesterol Vitamin B12 1352 H 04/05/21 04/06/21 14:55 08:01 WBC Hgb Hct MCHC [place] % (Auto) [place] # (Auto) Chloride 108.5 H Carbon Dioxide 19 L D BUN 28 H 37 H Creatinine 1.5 H 1.8 H Glucose 117 H 105 H POC Glucose Total Creatine Kinase 3608 H 4728 H CK-MB (CK-2) HDL Cholesterol Vitamin B12
[2021-04-06] MEDS: CEFEPIME/NS 2 GM/100 ML 2 GM/100 ML BAG IV SCH ×2 (10:36→21:17)
--- NOTE | 2021-04-06 10:46 | Progress Note ---
Assessment and Plan Assessment and plan: Acute CVA. Hypertension History of CAD/PTCA. 03/31/2021. CT scan of the head shows extensive edema involving the anteromedial right frontal lobe indicative of evolving infarct along the right LACEY distri bution. There is evidence of microvascular angiopathy with multiple old infarcts. No evidence of acute intracranial hemorrhage. CTA of the head and neck reveals occlusion of the distal right ICA and LACEY with evolving infarct. The findings are compatible with occlusion of the proximal right MCA with collateral flow distally. There is marked stenosis involving the left MCA with notable active since collateral vessels. Neurology consultation. PT/OT/ST. Continue aspirin and statin. 04/01/2021. Follow-up MRI brain for acute CVA. Continue medications for hypertension. Neurology following. PT/OT/ST. Continue aspirin and statin. 04/02/21 Patient presented with left sided weakness. MRI Brain done, report still pending. Patient has expressive aphasia from previous stroke 04/03/21 Patient had MRI done yesterday confirmed large right LACEY stroke. He is being followed by Neurology. For acute rehab placement. 04/04/21 Patient with acute ischemic stroke with large right LACEY lesion. MRI cer vical spine was ordered but after several attempts even with Ativan iv and Haldol iv he could not tolerate so CT Cervical spine ordered instead. 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 04/05/21 Patient with acute ischemic stroke with large right LACEY lesion. Plan was for him to go to Acute Rehab. He had a bed offer yesterday but was waiting for MRI cervical spine to be done. He could not tolerate MRI, so CT Cervical spine was done instead. However this morning he had seizures witnessed by Neurologist. He was given Ativan iv, Keppra iv, and EEG done. I discussed with sister at bedside, gave update and answered all questions. i also discussed with Neurology and he recommends to transfer to ICU if any more seizures. 04/06/21 patient with acute ischemic stroke with large right LACEY lesion. Yesterdauy had partial seizures, started on Ativan , Keppra by Neurology. Now has fever, tachycardia. labs show leukocytosis, ZEUS. Chest X ray shows LLL pneumonia. Started Cefepime and Vanco after cultures. Consult ID. Also consulted Nephrology for acute ZEUS with Cr 1.8. Today, was seen by Neurology and repeat MRI Brain ordered. keep NPO. Changed iv fluid to D51/2NS History Interval history: Left sided weakness aphasia Had seizures yesterday morning witnessed by Neurology Fever tachycardia Hospitalist Physical - Physical exam Narrative exam: Gen: Not in acute distress, lying in bed HEENT: Normochephalic, atraumatic Neck:supple, No JVD Lungs:Clear to auscultation bilaterally, no rales, no wheeze Heart:S1 and S2 reg, no murmurs, rubs or gallop Abd: soft, non tender, non distended, normal bowel sounds Ext: No edema, no clubbing, no cyanosis Neuro: Lethargic, aphasia, left sided weakness - Constitutional Vitals: Temp Pulse Resp BP Pulse Ox 100.0 F H 118 H 20 95/71 98 04/06/21 00:19 04/06/21 00:19 04/06/21 00:19 04/06/21 00:19 04/06/21 07:41 General appearance: Present: no acute distress, well-nourished HEART Score - HEART Score Troponin: Troponin T < 0.010 ng/mL (0.00-0.029) 03/30/21 19:58 Results - Labs CBC & Chem 7: 04/06/21 08:01 04/06/21 08:01 Labs: Laboratory Last Values WBC 8.7 K/mm3 (4.5-11.0) 04/06/21 08:01 RBC 4.50 M/mm3 (3.65-5.03) 04/06/21 08:01 Hgb 14.5 gm/dl (11.8-15.2) 04/06/21 08:01 Hct 42.4 % (35.5-45.6) 04/06/21 08:01 MCV 94 fl (84-94) 04/06/21 08:01 MCH 32 pg (28-32) 04/06/21 08:01 MCHC 34 % (32-34) 04/06/21 08:01 RDW 14.2 % (13.2-15.2) 04/06/21 08:01 Plt Count 251 K/mm3 (140-440) 04/06/21 08:01 Lymph % (Auto) 33.7 % (13.4-35.0) 04/01/21 07:21 [place] % (Auto) 8.0 % (0.0-7.3) H 04/01/21 07:21 Eos % (Auto) 0.3 % (0.0-4.3) 04/01/21 07:21 Baso % (Auto) 0.3 % (0.0-1.8) 04/01/21 07:21 Lymph # (Auto) 3.7 K/mm3 (1.2-5.4) 04/01/21 07:21 [place] # (Auto) 0.9 K/mm3 (0.0-0.8) H 04/01/21 07:21 Eos # (Auto) 0.0 K/mm3 (0.0-0.4) 04/01/21 07:21 Baso # (Auto) 0.0 K/mm3 (0.0-0.1) 04/01/21 07:21 Seg Neutrophils % 57.7 % (40.0-70.0) 04/01/21 07:21 Seg Neutrophils # 6.3 K/mm3 (1.8-7.7) 04/01/21 07:21 ESR 1 mm/Hr (0-20) 04/03/21 02:40 PT 13.6 Sec. (12.2-14.9) 03/31/21 05:11 INR 0.98 (0.87-1.13) 03/31/21 05:11 APTT 27.6 Sec. (24.2-36.6) 03/30/21 19:58 Thrombin Time 18.9 Sec. (15.1-19.6) 03/30/21 19:58 Sodium 145 mmol/L (137-145) 04/06/21 08:01 Potassium 4.1 mmol/L (3.6-5.0) 04/06/21 08:01 Chloride 108.5 mmol/L (98-107) H 04/06/21 08:01 Carbon Dioxide 23 mmol/L (22-30) 04/06/21 08:01 Anion Gap 18 mmol/L 04/06/21 08:01 BUN 37 mg/dL (9-20) H 04/06/21 08:01 Creatinine 1.8 mg/dL (0.8-1.3) H 04/06/21 08:01 Estimated GFR 47 ml/min 04/06/21 08:01 BUN/Creatinine Ratio 21 % 04/06/21 08:01 Glucose 105 mg/dL (75-100) H 04/06/21 08:01 POC Glucose 102 mg/dL (70-105) 04/02/21 15:29 Calcium 9.2 mg/dL (8.4-10.2) 04/06/21 08:01 Phosphorus 2.80 mg/dL (2.5-4.5) 04/05/21 14:55 Magnesium 2.00 mg/dL (1.7-2.3) 04/05/21 14:55 Total Creatine Kinase 4728 units/L (55-170) H 04/06/21 08:01 CK-MB (CK-2) 5.0 ng/mL (0.0-4.0) H 03/30/21 19:58 CK-MB (CK-2) Rel Index 1.0 (0-4) 03/30/21 19:58 Troponin T < 0.010 ng/mL (0.00-0.029) 03/30/21 19:58 Triglycerides 50 mg/dL (2-149) 03/31/21 05:11 Cholesterol 191 mg/dL (50-199) 03/31/21 05:11 LDL Cholesterol Direct 118 mg/dL (50-130) 03/31/21 05:11 HDL Cholesterol 65 mg/dL (40-59) H 03/31/21 05:11 Cholesterol/HDL Ratio 2.93 % 03/31/21 05:11 Vitamin B12 1352 pg/mL (211-911) H 04/02/21 23:53 Coronavirus (PCR) Negative (Negative) 04/01/21 Unknown Sam/IV: Voiding Method Condom Catheter Active Medications - Current Medications Current Medications: Generic Name Dose Route Start Last Admin Trade Name Freq PRN Reason Stop Dose Admin Acetaminophen 650 mg 03/30/21 22:48 04/05/21 20:52 Acetaminophen 325 Mg Tab PO 650 mg Q4H PRN Administration Pain, Mild (1-3) Aspirin 325 mg 03/31/21 10:00 04/05/21 09:41 Aspirin 325 Mg Tab PO 325 mg QDAY LORI Administration Atorvastatin Calcium 80 mg 04/02/21 22:00 04/05/21 21:36 Atorvastatin 40 Mg Tab PO Not Given QHS LORI Bisacodyl 10 mg 03/30/21 22:48 Bisacodyl 10 Mg Rect Supp SD QDAY PRN Constipation Clopidogrel Bisulfate 75 mg 04/02/21 10:00 04/05/21 09:44 Clopidogrel 75 Mg Tab PO 75 mg QDAY LORI Administration Heparin Sodium (Porcine) 5,000 unit 03/31/21 06:00 04/06/21 05:34 Heparin 5,000 Unit/1 Ml Vial SUB-Q 5,000 unit Q8HR LORI Administration Hydralazine HCl 10 mg 04/05/21 00:48 04/05/21 12:20 Hydralazine 20 Mg/1 Ml Inj IV 10 mg Q6HR PRN Administration SBP >/=160; DBP >/=100 Sodium Chloride 1,000 mls @ 100 mls/hr 04/05/21 20:45 04/05/21 20:52 Nacl 0.9% 1000 Ml IV 04/06/21 20:45 100 mls/hr DIRECT LORI Administration Levetiracetam 500 mg/ Dextrose 105 mls @ 400 mls/hr 04/05/21 22:00 04/06/21 10:20 IV 400 mls/hr Q12HR LORI Administration Vancomycin HCl 1,500 mg/ 530 mls @ 333 mls/hr 04/06/21 10:00 Sodium Chloride IV 04/06/21 11:35 ONCE ONE Protocol Cefepime HCl 2 gm in 100 mls @ 200 mls/hr 04/06/21 10:00 04/06/21 10:36 Cefepime/Ns 2 Gm/100 Ml IV 200 mls/hr Q12HR LORI Administration Lorazepam 2 mg 04/05/21 10:43 Lorazepam 2 Mg/Ml Vial IV Q4H PRN Agitation Magnesium Hydroxide 30 ml 03/30/21 22:48 Magnesium Hydroxide (Mom) Oral Liqd Udc PO Q4H PRN Constipation Metoclopramide HCl 10 mg 03/30/21 22:48 Metoclopramide 10 Mg Tab PO Q6H PRN Nausea And Vomiting Morphine Sulfate 2 mg 03/30/21 22:48 04/05/21 00:19 Morphine 2 Mg/1 Ml Inj IV 2 mg Q4H PRN Administration Pain, Moderate (4-6) Ondansetron HCl 4 mg 03/30/21 22:48 Ondansetron 4 Mg/2 Ml Inj IV Q8H PRN Nausea And Vomiting Promethazine HCl 25 mg 03/30/21 22:48 Promethazine 25 Mg Rect Supp SD Q6H PRN Nausea And Vomiting Sodium Chloride 10 ml 03/31/21 10:00 04/06/21 10:39 Sodium Chloride 0.9% 10 Ml Flush Syringe IV 10 ml BID LORI Administration Sodium Chloride 10 ml 03/30/21 22:48 Sodium Chloride 0.9% 10 Ml Flush Syringe IV PRN PRN LINE FLUSH Nutrition/Malnutrition Assess - Dietary Evaluation Nutrition/Malnutrition Findings: Nutrition Notes Start: 03/31/21 10:46 Freq: Status: Active Protocol: Document 03/31/21 10:46 CALVIN (Rec: 03/31/21 10:49 [id number]) Nutrition Notes Need for Assessment generated from: MD Order,Education Initial or Follow up Brief Note Current Diagnosis Coronary Artery Disease, Hypertension,Stroke Current Diet Cardiac Subjective/Other Information MD order for diet education. Gave pt sister Candy heart healthy diet education and talked about reducing amount of sodium in pt diet. 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
[2021-04-06 11:02] LABS: Bacteria,Urine 1+ /HPF (Negative); Bilirubin,Urine SM (Negative); Blood,Urine NEG (Negative); Color,Urine Amber (Yellow); Mucus,Urine 1+ /HPF
[2021-04-06 11:07] LABS: Ictotest,Urine Negative (Negative)
[2021-04-06] MEDS: ASPIRIN 325 MG TAB PO SCH (11:58)
[2021-04-06] MEDS: CLOPIDOGREL 75 MG TAB PO SCH (11:59)
--- NOTE | 2021-04-06 13:19 | Consultation ---
History of Present Illness - Reason for Consult Consult date: 04/06/21 Sepsis Requesting physician: VALENTINA MOORE - History of Present Illness 60-year-old male with history of multiple strokes with residual right-sided weakness, admitted on 03/31/2021 secondary to acute left-sided weakness associated with headaches. Patient is not the best historian due to aphasia. On arrival, temperature 97.3. Initial WBC 10.5. Initial creatinine 1.4. CT scan of the head shows extensive edema involving the anteromedial right frontal lobe indicative of evolving infarct along the right LACEY distribution. There is evidence of microvascular angiopathy with multiple old infarcts. No evidence of acute intracranial hemorrhage. CTA of the head and neck reveals occlusion of th e distal right ICA and LACEY with evolving infarct. The findings are compatible with occlusion of the proximal right MCA with collateral flow distally. There is marked stenosis involving the left MCA with notable active since collateral vessels. Interventional radiology was consulted at [facility] patient is now a candidate for any surgical intervention. MRI shows large acute right LACEY infarct. During the last 24 hours noted a new seizure episode and fever at 100- 100.7, noted white count up to 12.3. Urinalysis negative. SARS-CoV-2 PCR negative. Review of Systems: Unable to obtain due to aphasia t Past History Past Medical History: CAD (H/O [place]), hypertension Past Surgical History: PTCA Social history: smoking (Former Smoker) Family history: no significant family history Medications and Allergies Allergies Allergy/AdvReac Type Severity Reaction Status Date / Time No Known Allergies Allergy Verified 03/30/21 20:15 Home Medications Medication Instructions Recorded Confirmed Last Taken Type Amlodipine Besylate [Norvasc] 5 mg PO QDAY 03/30/21 03/30/21 Unknown History Aspirin [Adult Aspirin] 81 mg PO QDAY 03/30/21 03/30/21 Unknown History AtorvaSTATin [Lipitor] 20 mg PO QHS 03/30/21 03/30/21 Unknown History Butalb/Acetaminophen/Caffeine 1 each PO QDAY 03/30/21 03/30/21 Unknown History [Cnewrq-Owzkryao-Dpnc 50-325-40] Citalopram [celeXA] 10 mg PO QDAY 03/30/21 03/30/21 Unknown History Mecobalamin [B12 Active] 1,000 mcg PO QDAY 03/30/21 03/30/21 Unknown History Metoprolol Xl [Metoprolol 100 mg PO QDAY 03/30/21 03/30/21 Unknown History SUCCINATE ER TAB] Oxybutynin [Ditropan] 5 mg PO BID 03/30/21 03/30/21 Unknown History lisinopriL [Zestril TAB] 40 mg PO QDAY 03/30/21 03/30/21 Unknown History Active Meds: Active Medications Acetaminophen (Acetaminophen 325 Mg Tab) 650 mg PO Q4H PRN PRN Reason: Pain, Mild (1-3) Last Admin: 04/05/21 20:52 Dose: 650 mg Documented by: Aspirin (Aspirin 325 Mg Tab) 325 mg PO QDAY [facility] Last Admin: 04/06/21 11:58 Dose: Not Given Documented by: Atorvastatin Calcium (Atorvastatin 40 Mg Tab) 80 mg PO QHS [facility] Last Admin: 04/05/21 21:36 Dose: Not Given Documented by: Bisacodyl (Bisacodyl 10 Mg Rect Supp) 10 mg MS QDAY PRN PRN Reason: Constipation Clopidogrel Bisulfate (Clopidogrel 75 Mg Tab) 75 mg PO QDAY [facility] Last Admin: 04/06/21 11:59 Dose: Not Given Documented by: Heparin Sodium (Porcine) (Heparin 5,000 Unit/1 Ml Vial) 5,000 unit SUB-Q Q8HR [facility] Last Admin: 04/06/21 05:34 Dose: 5,000 unit Documented by: Hydralazine HCl (Hydralazine 20 Mg/1 Ml Inj) 10 mg IV Q6HR PRN PRN Reason: SBP >/=160; DBP >/=100 Last Admin: 04/05/21 12:20 Dose: 10 mg Documented by: Levetiracetam 500 mg/ Dextrose 105 mls @ 400 mls/hr IV Q12HR [facility] Last Admin: 04/06/21 10:20 Dose: 400 mls/hr Documented by: Cefepime HCl (Cefepime/Ns 2 Gm/100 Ml) 2 gm in 100 mls @ 200 mls/hr IV Q12HR [facility] Last Admin: 04/06/21 10:36 Dose: 200 mls/hr Documented by: Dextrose/Sodium Chloride (D5/0.45ns) 1,000 mls @ 75 mls/hr IV DIRECT [facility] Lorazepam (Lorazepam 2 Mg/Ml Vial) 2 mg IV Q4H PRN PRN Reason: Agitation Magnesium Hydroxide (Magnesium Hydroxide (Mom) Oral Liqd Udc) 30 ml PO Q4H PRN PRN Reason: Constipation Metoclopramide HCl (Metoclopramide 10 Mg Tab) 10 mg PO Q6H PRN PRN Reason: Nausea And Vomiting Morphine Sulfate (Morphine 2 Mg/1 Ml Inj) 2 mg IV Q4H PRN PRN Reason: Pain, Moderate (4-6) Last Admin: 04/05/21 00:19 Dose: 2 mg Documented by: Ondansetron HCl (Ondansetron 4 Mg/2 Ml Inj) 4 mg IV Q8H PRN PRN Reason: Nausea And Vomiting Promethazine HCl (Promethazine 25 Mg Rect Supp) 25 mg MS Q6H PRN PRN Reason: Nausea And Vomiting Sodium Chloride (Sodium Chloride 0.9% 10 Ml Flush Syringe) 10 ml IV BID [facility] Last Admin: 04/06/21 10:39 Dose: 10 ml Documented by: Sodium Chloride (Sodium Chloride 0.9% 10 Ml Flush Syringe) 10 ml IV PRN PRN PRN Reason: LINE FLUSH Physical Examination - Physical Exam Narrative exam: General appearance: Alert in NAD on nasal cannula O2 Eyes: anicteric sclerae, moist conjunctivae; no lid-lag; PERRLA HENT: Normocephalic, Atraumatic; normal external ears, nares open, oropharynx clear with moist mucous membranes and no oral thrush; normal hard and soft palate. Neck: supple, tracheal midline, no JVD Lungs: Clear to auscultation bilaterally CV: RRR no murmur Abdomen: Soft, non-tender Extremities: no edema, no cyanosis Skin: No rash. Psych: no agitated Neuro: Alert, nonverbal, left hemiparesis - Constitutional Vitals: Vital Signs Temp Pulse Resp BP Pulse Ox 97.6 F 92 H 18 127/86 98 04/06/21 08:00 04/06/21 10:00 04/06/21 07:38 04/06/21 07:38 04/06/21 07:41 Temperature -Last 24 Hours Temperature 97.6 F Temperature 97.5 F Temperature 100.0 F Temperature 100.7 F Temperature 100.0 F Results - Labs CBC & Chem 7: 04/06/21 08:01 04/06/21 08:01 Labs: Abnormal lab results 04/05/21 04/05/21 04/06/21 Range/Units 14:55 14:55 08:01 WBC 12.3 H (4.5-11.0) K/mm3 Hgb 16.0 H (11.8-15.2) gm/dl Hct 45.9 H (35.5-45.6) % MCHC 35 H (32-34) % Chloride 108.5 H (98-107) mmol/L Carbon Dioxide 19 L D (22-30) mmol/L BUN 28 H 37 H (9-20) mg/dL Creatinine 1.5 H 1.8 H (0.8-1.3) mg/dL Glucose 117 H 105 H (75-100) mg/dL Total Creatine Kinase 3608 H 4728 H (55-170) units/L Ur [facility] [place] (1.003-1.030) 04/06/21 Range/Units 10:28 WBC (4.5-11.0) K/mm3 Hgb (11.8-15.2) gm/dl Hct (35.5-45.6) % MCHC (32-34) % Chloride (98-107) mmol/L Carbon Dioxide (22-30) mmol/L BUN (9-20) mg/dL Creatinine (0.8-1.3) mg/dL Glucose (75-100) mg/dL Total Creatine Kinase (55-170) units/L [facility] [place] 1.032 H (1.003-1.030) Assessment and Plan Cultures: None Assessment: 60-year-old male with history of multiple strokes with residual right-sided weakness, admitted on 03/31/2021 secondary to acute left-sided weakness associated with headaches; found to have large acute right LACEY infarct now with 24 hours of fever and leukocytosis: #Sepsis: Present on admission, now with fever and leukocytosis, likely secondary to pneumonia. Urinalysis negative. SARS-CoV-2 PCR negative. #Nosocomial versus aspiration pneumonia: Patient with recent seizures post CVA. Chest x-ray with left basilar airspace consolidation. #Acute CVA/right LACEY infarct: Neurology on board. #ZEUS: Renally adjust antibiotics Recommendations: -Obtain blood cultures -Agree with cefepime and vancomycin renally adjusted -Check MRSA PCR -Monitor fever -Aspiration precautions Will follow. Lyndsye Sandoval MD Infectious Diseases [employer] [facility] M [phone] O [phone]
[2021-04-06] MEDS: D5W/0.45% NACL 1,000 ML IV SCH (14:15)
--- NOTE | 2021-04-06 14:47 | Consultation ---
History of Present Illness - Reason for Consult Consult date: 04/06/21 - History of Present Illness This a 60 y/o M with PMH of multiple CVAs with residual right sided weakness and aphasia who presented to [facility] with c/o left sided weakness. CT Head showed extensive edema involving ateromedial right frontal lobe indicative of evolving infarct along the right LACEY distribution. MRI Brain showed large acut eright LACEY infarct. CTA Head and Neck showed occlusion of the distal right ICA and LACEY with evolving infarct, findings compatible with occlusion of the proximal right MCA with collateral flow distally, marked stenosis involving left MCA with notable active since collateral vessels. ED physician consulted IR at [facility] who felt pt is not a good candidate for surgical intervention and recommended medical management at this facility. Pt found to have ZEUS with SCr level of 1.5, increased to 1.8 today. We were consulted to evaluate this pt who has ZEUS. Hx obtained from medical chart, pt aphasic, no family at bedside . Past History Past Medical History: CAD (H/O [place]), hypertension Past Surgical History: PTCA Social history: smoking (Former Smoker) Family history: no significant family history Medications and Allergies Allergies Allergy/AdvReac Type Severity Reaction Status Date / Time No Known Allergies Allergy Verified 03/30/21 20:15 Home Medications Medication Instructions Recorded Confirmed Last Taken Type Amlodipine Besylate [Norvasc] 5 mg PO QDAY 03/30/21 03/30/21 Unknown History Aspirin [Adult Aspirin] 81 mg PO QDAY 03/30/21 03/30/21 Unknown History AtorvaSTATin [Lipitor] 20 mg PO QHS 03/30/21 03/30/21 Unknown History Butalb/Acetaminophen/Caffeine 1 each PO QDAY 03/30/21 03/30/21 Unknown History [Bttniy-Iktesosv-Lavx 50-325-40] Citalopram [celeXA] 10 mg PO QDAY 03/30/21 03/30/21 Unknown History Mecobalamin [B12 Active] 1,000 mcg PO QDAY 03/30/21 03/30/21 Unknown History Metoprolol Xl [Metoprolol 100 mg PO QDAY 03/30/21 03/30/21 Unknown History SUCCINATE ER TAB] Oxybutynin [Ditropan] 5 mg PO BID 03/30/21 03/30/21 Unknown History lisinopriL [Zestril TAB] 40 mg PO QDAY 03/30/21 03/30/21 Unknown History Active Meds: Active Medications Acetaminophen (Acetaminophen 325 Mg Tab) 650 mg PO Q4H PRN PRN Reason: Pain, Mild (1-3) Last Admin: 04/05/21 20:52 Dose: 650 mg Documented by: Aspirin (Aspirin 325 Mg Tab) 325 mg PO QDAY [facility] Last Admin: 04/06/21 11:58 Dose: Not Given Documented by: Atorvastatin Calcium (Atorvastatin 40 Mg Tab) 80 mg PO QHS [facility] Last Admin: 04/05/21 21:36 Dose: Not Given Documented by: Bisacodyl (Bisacodyl 10 Mg Rect Supp) 10 mg PA QDAY PRN PRN Reason: Constipation Clopidogrel Bisulfate (Clopidogrel 75 Mg Tab) 75 mg PO QDAY [facility] Last Admin: 04/06/21 11:59 Dose: Not Given Documented by: Heparin Sodium (Porcine) (Heparin 5,000 Unit/1 Ml Vial) 5,000 unit SUB-Q Q8HR [facility] Last Admin: 04/06/21 14:15 Dose: 5,000 unit Documented by: Hydralazine HCl (Hydralazine 20 Mg/1 Ml Inj) 10 mg IV Q6HR PRN PRN Reason: SBP >/=160; DBP >/=100 Last Admin: 04/05/21 12:20 Dose: 10 mg Documented by: Levetiracetam 500 mg/ Dextrose 105 mls @ 400 mls/hr IV Q12HR [facility] Last Admin: 04/06/21 10:20 Dose: 400 mls/hr Documented by: Cefepime HCl (Cefepime/Ns 2 Gm/100 Ml) 2 gm in 100 mls @ 200 mls/hr IV Q12HR [facility] Last Admin: 04/06/21 10:36 Dose: 200 mls/hr Documented by: Dextrose/Sodium Chloride (D5/0.45ns) 1,000 mls @ 75 mls/hr IV DIRECT [facility] Last Admin: 04/06/21 14:15 Dose: 75 mls/hr Documented by: Lorazepam (Lorazepam 2 Mg/Ml Vial) 2 mg IV Q4H PRN PRN Reason: Agitation Magnesium Hydroxide (Magnesium Hydroxide (Mom) Oral Liqd Udc) 30 ml PO Q4H PRN PRN Reason: Constipation Metoclopramide HCl (Metoclopramide 10 Mg Tab) 10 mg PO Q6H PRN PRN Reason: Nausea And Vomiting Morphine Sulfate (Morphine 2 Mg/1 Ml Inj) 2 mg IV Q4H PRN PRN Reason: Pain, Moderate (4-6) Last Admin: 04/05/21 00:19 Dose: 2 mg Documented by: Ondansetron HCl (Ondansetron 4 Mg/2 Ml Inj) 4 mg IV Q8H PRN PRN Reason: Nausea And Vomiting Promethazine HCl (Promethazine 25 Mg Rect Supp) 25 mg PA Q6H PRN PRN Reason: Nausea And Vomiting Sodium Chloride (Sodium Chloride 0.9% 10 Ml Flush Syringe) 10 ml IV BID [facility] Last Admin: 04/06/21 10:39 Dose: 10 ml Documented by: Sodium Chloride (Sodium Chloride 0.9% 10 Ml Flush Syringe) 10 ml IV PRN PRN PRN Reason: LINE FLUSH Review of Systems ROS unobtainable: due to mental status Exam - Vital Signs Vital signs: Vital Signs Pulse Resp BP Pulse Ox 85 20 149/81 96 03/30/21 20:00 03/30/21 20:00 03/30/21 20:00 03/30/21 20:00 - General Appearance General appearance: frail EENT: ATNC Neck: Present: neck supple Respiratory: Decreased Breath Sounds Heart: regular, S1S2 Gastrointestinal: Present: normoactive bowel sounds Integumentary: warm and dry Neurologic: aphasia Musculoskeletal: Present: other (no edema to BLE) Results - Lab Results 04/06/21 08:01 04/06/21 08:01 Most recent lab results Calcium 9.2 mg/dL (8.4-10.2) 04/06/21 08:01 Phosphorus 2.80 mg/dL (2.5-4.5) 04/05/21 14:55 Magnesium 2.00 mg/dL (1.7-2.3) 04/05/21 14:55 Assessment and Plan Acute CVA ZEUS possibly 2/2 prerenal, Rhabdo, ISHAN, ? underlying CKD Possible new onset partial seizure HTN Plan: - Renal function reviewed, SCr level was 1.8 today, yesterday's SCr level was 1.5 - On admission (04/01/21) - SCr level was 1.4 - Unknown renal function baseline - On D5 0.45% NS infusion at 75 ml/hr - Obtain urine lytes, protein, eosinophils - CK level trending up, CK level was 4728 today, up from 3608 yesterday - Check CK level daily - Renally dose meds - Sam Catheter: No - Renal plan reviewed by Dr Dee
[2021-04-07] MEDS: HEPARIN 5,000 UNIT/1 ML VIAL SUB-Q SCH ×3 (05:16→21:21)
[2021-04-07 05:49] LABS: Hematocrit 39.9 % (35.5-45.6); Hemoglobin 13.8 gm/dl (11.8-15.2); Mean Corpuscular HGB Conc 35 % (32-34); Mean Corpuscular Volume 94 fl (84-94); Platelet Count 245 K/mm3 (140-440); Red Blood Count 4.26 M/mm3 (3.65-5.03); Red Cell Distribution Width 13.8 % (13.2-15.2)
[2021-04-07 06:04] LABS: BUN/Creatinine Ratio 24; Blood Urea Nitrogen 33 mg/dL (9-20); Calcium 8.7 mg/dL (8.4-10.2); Hemolysis Index 3
[2021-04-07] MEDS: hydrALAZINE 20 MG/1 ML INJ IV PRN ×2 (06:10→09:08)
[2021-04-07 07:31] LABS: Creatinine,Urine 584.3 mg/dL (0.1-20.0); Microalbumin/Creatinine Ratio 28.7 ug/mg; Protein/Creatinine Ratio,Urine 0.14
--- NOTE | 2021-04-07 09:02 | Progress Note ---
Assessment and Plan Acute CVA ZEUS possibly 2/2 prerenal, Rhabdomyolysis, ISHAN, ? 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 - Renally dose meds - Sam Catheter: No - Renal plan reviewed by Dr Dee Subjective Date of service: 04/07/21 Principal diagnosis: CVA and swallowing diffiulty , aphasia Interval history: Pt seen in bed, nonverbal, appears to follow simple commands, no family at bedside Objective - Vital Signs Vital signs: Vital Signs - 12hr 04/06/21 04/07/21 04/07/21 23:35 04:13 04:51 Temperature 98.6 F 98.1 F Pulse Rate 109 H 111 H Respiratory 18 18 Rate Blood Pressure 174/91 176/86 O2 Sat by Pulse 97 100 97 Oximetry 04/07/21 06:10 Temperature Pulse Rate 111 H Respiratory Rate Blood Pressure 176/86 O2 Sat by Pulse Oximetry - General Appearance General appearance: other (lethargic, nonverbal) EENT: ATNC Neck: no JVD Respiratory: Present: Decreased Breath Sounds Cardiology: regular, S1S2 Gastrointestinal: normoactive bowel sounds Integumentary: warm and dry Neurologic: aphasia (lethargic, pt nonverbal, moves right upper and lower extremities, but has left sided weakness with minimal movement) Musculoskeletal: other (no edema to BLE) - Lab 04/07/21 05:24 04/07/21 05:24 Most recent lab results Calcium 8.7 mg/dL (8.4-10.2) 04/07/21 05:24 Phosphorus 3.10 mg/dL (2.5-4.5) 04/07/21 05:24 Magnesium 2.00 mg/dL (1.7-2.3) 04/05/21 14:55 Urine Creatinine 584.3 mg/dL (0.1-20.0) H 04/07/21 06:51 Urine Sodium 53 mmol/L 04/07/21 06:51 Urine Total Protein 81 mg/dL (5-11.8) H 04/07/21 06:51 Medications & Allergies - Medications Allergies/Adverse Reactions: Allergies No Known Allergies Allergy (Verified 03/30/21 20:15) Home Medications: Home Medications Medication Instructions Recorded Confirmed Last Taken Type Amlodipine Besylate [Norvasc] 5 mg PO QDAY 03/30/21 03/30/21 Unknown History Aspirin [Adult Aspirin] 81 mg PO QDAY 03/30/21 03/30/21 Unknown History AtorvaSTATin [Lipitor] 20 mg PO QHS 03/30/21 03/30/21 Unknown History Butalb/Acetaminophen/Caffeine 1 each PO QDAY 03/30/21 03/30/21 Unknown History [Rjvqiy-Gymggkzz-Nouq 50-325-40] Citalopram [celeXA] 10 mg PO QDAY 03/30/21 03/30/21 Unknown History Mecobalamin [B12 Active] 1,000 mcg PO QDAY 03/30/21 03/30/21 Unknown History Metoprolol Xl [Metoprolol 100 mg PO QDAY 03/30/21 03/30/21 Unknown History SUCCINATE ER TAB] Oxybutynin [Ditropan] 5 mg PO BID 03/30/21 03/30/21 Unknown History lisinopriL [Zestril TAB] 40 mg PO QDAY 03/30/21 03/30/21 Unknown History Active Medications: Generic Name Dose Route Start Last Admin Trade Name Freq PRN Reason Stop Dose Admin Acetaminophen 650 mg 03/30/21 22:48 04/05/21 20:52 Acetaminophen 325 Mg Tab PO 650 mg Q4H PRN Administration Pain, Mild (1-3) Aspirin 325 mg 03/31/21 10:00 04/06/21 11:58 Aspirin 325 Mg Tab PO Not Given QDAY [facility] Atorvastatin Calcium 80 mg 04/02/21 22:00 04/06/21 21:19 Atorvastatin 40 Mg Tab PO Not Given QHS [facility] Bisacodyl 10 mg 03/30/21 22:48 Bisacodyl 10 Mg Rect Supp HI QDAY PRN Constipation Clopidogrel Bisulfate 75 mg 04/02/21 10:00 04/06/21 11:59 Clopidogrel 75 Mg Tab PO Not Given QDAY [facility] Heparin Sodium (Porcine) 5,000 unit 03/31/21 06:00 04/07/21 05:16 Heparin 5,000 Unit/1 Ml Vial SUB-Q 5,000 unit Q8HR [facility] Administration Hydralazine HCl 10 mg 04/05/21 00:48 04/07/21 06:10 Hydralazine 20 Mg/1 Ml Inj IV 10 mg Q6HR PRN Administration SBP >/=160; DBP >/=100 Levetiracetam 500 mg/ Dextrose 105 mls @ 400 mls/hr 04/05/21 22:00 04/06/21 22:51 IV 400 mls/hr Q12HR [facility] Administration Cefepime HCl 2 gm in 100 mls @ 200 mls/hr 04/06/21 10:00 04/06/21 21:17 Cefepime/Ns 2 Gm/100 Ml IV 200 mls/hr Q12HR [facility] Administration Dextrose/Sodium Chloride 1,000 mls @ 75 mls/hr 04/06/21 13:00 04/06/21 14:15 D5/0.45ns IV 75 mls/hr DIRECT [facility] Administration Vancomycin HCl 1,250 mg/ 275 mls @ 166.667 mls/hr 04/07/21 10:00 Sodium Chloride IV Q24H [facility] Lorazepam 2 mg 04/05/21 10:43 Lorazepam 2 Mg/Ml Vial IV Q4H PRN Agitation Magnesium Hydroxide 30 ml 03/30/21 22:48 Magnesium Hydroxide (Mom) Oral Liqd Udc PO Q4H PRN Constipation Metoclopramide HCl 10 mg 03/30/21 22:48 Metoclopramide 10 Mg Tab PO Q6H PRN Nausea And Vomiting Morphine Sulfate 2 mg 03/30/21 22:48 04/05/21 00:19 Morphine 2 Mg/1 Ml Inj IV 2 mg Q4H PRN Administration Pain, Moderate (4-6) Ondansetron HCl 4 mg 03/30/21 22:48 Ondansetron 4 Mg/2 Ml Inj IV Q8H PRN Nausea And Vomiting Promethazine HCl 25 mg 03/30/21 22:48 Promethazine 25 Mg Rect Supp HI Q6H PRN Nausea And Vomiting Sodium Chloride 10 ml 03/31/21 10:00 04/06/21 21:19 Sodium Chloride 0.9% 10 Ml Flush Syringe IV 10 ml BID [facility] Administration Sodium Chloride 10 ml 03/30/21 22:48 Sodium Chloride 0.9% 10 Ml Flush Syringe IV PRN PRN LINE FLUSH
[2021-04-07] MEDS: CEFEPIME/NS 2 GM/100 ML 2 GM/100 ML BAG IV SCH ×2 (09:07→21:19)
[2021-04-07] MEDS: ASPIRIN 325 MG TAB PO SCH (09:08)
[2021-04-07] MEDS: CLOPIDOGREL 75 MG TAB PO SCH (09:08)
--- NOTE | 2021-04-07 09:23 | Progress Note ---
Assessment and Plan Assessment and plan: Acute CVA. Hypertension History of CAD/PTCA. Sepsis due to pneumonia Cefepime and Vancomycin ID following Pneumonia left base 03/31/2021. CT scan of the head shows extensive edema involving the anteromedial right frontal lobe indicative of evolving infarct along the right LACEY distribution. There is evidence of microvascular angiopathy with multiple old infarcts. No evidence of acute intracranial hemorrhage. CTA of the head and neck reveals occlusion of the distal right ICA and LACEY with evolving infarct. The findings are compatible with occlusion of the proximal right MCA with collateral flow distally. There is marked stenosis involving the left MCA with notable active since collateral vessels. Neurology consultation. PT/OT/ST. Continue aspirin and statin. 04/01/2021. Follow-up MRI brain for acute CVA. Continue medications for hypertension. Neurology following. PT/OT/ST. Continue aspirin and statin. 04/02/21 Patient presented with left sided weakness. MRI Brain done, report st ill pending. Patient has expressive aphasia from previous stroke 04/03/21 Patient had MRI done yesterday confirmed large right LACEY stroke. He is being followed by Neurology. For acute rehab placement. 04/04/21 Patient with acute ischemic stroke with large right LACEY lesion. MRI cervical spine was ordered but after several attempts even with Ativan iv and Haldol iv he could not tolerate so CT Cervical spine ordered instead. cue worker had a bed for him at Rehab facility but awaiting tests and clearance from Neurology. 04/05/21 Patient with acute ischemic stroke with large right LACEY lesion. Plan was for him to go to Acute Rehab. He had a bed offer yesterday but was waiting for MRI cervical spine to be done. He could not tolerate MRI, so CT Cervical spine was done instead. However this morning he had seizures witnessed by Neurologist. He was given Ativan iv, Keppra iv, and EEG done. I discussed with sister at bedside, gave update and answered all questions. i also discussed with Neurology and he recommends to transfer to ICU if any more seizures. 04/06/21 Patient with acute ischemic stroke with large right LACEY lesion. Yesterday had partial seizures, started on Ativan , Keppra by Neurology. Now has fever, tachycardia. labs show leukocytosis, ZEUS. Chest X ray shows LLL pneumoni a. Started Cefepime and Vanco after cultures. Consult ID. Also consulted Nephrology for acute ZEUS with Cr 1.8. Today, was seen by Neurology and repeat MRI Brain ordered. keep NPO. Changed iv fluid to D51/2NS 04/07/21 Patient with acute ischemic stroke with large right LACEY lesion. Had partial seizures on 04/05, started on Ativan, keppra. No more witnessed seizures. He had fever and CXR showed Pneumonia left base. Now being treated with Cefepime and Vanco for Sepsis. ZEUS improving. He is NPO. Speech therapy to evaluate. When stable will need acute rehab. he had bed offer several days ago but not stable for discharge to rehab yet. I spoke with sister at bedside 2 days ago. History Interval history: Left sided weakness aphasia Had seizures morning of 04/05 witnessed by Neurology Fever tachycardia Hospitalist Physical - Physical exam Narrative exam: Gen: Not in acute distress, lying in bed HEENT: Normochephalic, atraumatic Neck:supple, No JVD Lungs:Clear to auscultation bilaterally, no rales, no wheeze Heart:S1 and S2 reg, tachycardia, no murmurs, rubs or gallop Abd: soft, non tender, non distended, normal bowel sounds Ext: No edema, no clubbing, no cyanosis Neuro: Lethargic, aphasia, left sided weakness - Constitutional Vitals: Temp Pulse Resp BP Pulse Ox 98.1 F 111 H 18 176/86 97 04/07/21 04:51 04/07/21 06:10 04/07/21 04:51 04/07/21 06:10 04/07/21 04:51 General appearance: Present: no acute distress, well-nourished HEART Score - HEART Score Troponin: Troponin T < 0.010 ng/mL (0.00-0.029) 03/30/21 19:58 Results - Labs CBC & Chem 7: 04/07/21 05:24 04/07/21 05:24 Labs: Laboratory Last Values WBC 9.8 K/mm3 (4.5-11.0) 04/07/21 05:24 RBC 4.26 M/mm3 (3.65-5.03) 04/07/21 05:24 Hgb 13.8 gm/dl (11.8-15.2) 04/07/21 05:24 Hct 39.9 % (35.5-45.6) 04/07/21 05:24 MCV 94 fl (84-94) 04/07/21 05:24 MCH 33 pg (28-32) H 04/07/21 05:24 MCHC 35 % (32-34) H 04/07/21 05:24 RDW 13.8 % (13.2-15.2) 04/07/21 05:24 Plt Count 245 K/mm3 (140-440) 04/07/21 05:24 Lymph % (Auto) 33.7 % (13.4-35.0) 04/01/21 07:21 [place] % (Auto) 8.0 % (0.0-7.3) H 04/01/21 07:21 Eos % (Auto) 0.3 % (0.0-4.3) 04/01/21 07:21 Baso % (Auto) 0.3 % (0.0-1.8) 04/01/21 07:21 Lymph # (Auto) 3.7 K/mm3 (1.2-5.4) 04/01/21 07:21 [place] # (Auto) 0.9 K/mm3 (0.0-0.8) H 04/01/21 07:21 Eos # (Auto) 0.0 K/mm3 (0.0-0.4) 04/01/21 07:21 Baso # (Auto) 0.0 K/mm3 (0.0-0.1) 04/01/21 07:21 Seg Neutrophils % 57.7 % (40.0-70.0) 04/01/21 07:21 Seg Neutrophils # 6.3 K/mm3 (1.8-7.7) 04/01/21 07:21 ESR 1 mm/Hr (0-20) 04/03/21 02:40 PT 13.6 Sec. (12.2-14.9) 03/31/21 05:11 INR 0.98 (0.87-1.13) 03/31/21 05:11 APTT 27.6 Sec. (24.2-36.6) 03/30/21 19:58 Thrombin Time 18.9 Sec. (15.1-19.6) 03/30/21 19:58 Sodium 143 mmol/L (137-145) 04/07/21 05:24 Potassium 3.8 mmol/L (3.6-5.0) 04/07/21 05:24 Chloride 110.4 mmol/L (98-107) H 04/07/21 05:24 Carbon Dioxide 20 mmol/L (22-30) L 04/07/21 05:24 Anion Gap 16 mmol/L 04/07/21 05:24 BUN 33 mg/dL (9-20) H 04/07/21 05:24 Creatinine 1.4 mg/dL (0.8-1.3) H 04/07/21 05:24 Estimated GFR > 60 ml/min 04/07/21 05:24 BUN/Creatinine Ratio 24 % 04/07/21 05:24 Glucose 117 mg/dL (75-100) H 04/07/21 05:24 POC Glucose 102 mg/dL (70-105) 04/02/21 15:29 Calcium 8.7 mg/dL (8.4-10.2) 04/07/21 05:24 Phosphorus 3.10 mg/dL (2.5-4.5) 04/07/21 05:24 Magnesium 2.00 mg/dL (1.7-2.3) 04/05/21 14:55 Total Creatine Kinase 4728 units/L (55-170) H 04/06/21 08:01 CK-MB (CK-2) 5.0 ng/mL (0.0-4.0) H 03/30/21 19:58 CK-MB (CK-2) Rel Index 1.0 (0-4) 03/30/21 19:58 Troponin T < 0.010 ng/mL (0.00-0.029) 03/30/21 19:58 Triglycerides 50 mg/dL (2-149) 03/31/21 05:11 Cholesterol 191 mg/dL (50-199) 03/31/21 05:11 LDL Cholesterol Direct 118 mg/dL (50-130) 03/31/21 05:11 HDL Cholesterol 65 mg/dL (40-59) H 03/31/21 05:11 Cholesterol/HDL Ratio 2.93 % 03/31/21 05:11 Vitamin B12 1352 pg/mL (211-911) H 04/02/21 23:53 PTH Intact 92.00 pg/mL (15-65) H 04/07/21 05:24 Urine Color [place] (Yellow) 04/06/21 10:28 Urine Turbidity Clear (Clear) 04/06/21 10:28 Urine pH 5.0 (5.0-7.0) 04/06/21 10:28 Ur Specific [place] 1.032 (1.003-1.030) H 04/06/21 10:28 Urine Protein 100 mg/dl mg/dL (Negative) 04/06/21 10:28 Urine Glucose (UA) Neg mg/dL (Negative) 04/06/21 10:28 Urine Ketones 20 mg/dL (Negative) 04/06/21 10:28 Urine Blood Neg (Negative) 04/06/21 10:28 Urine Nitrite Neg (Negative) 04/06/21 10:28 Urine Bilirubin Sm (Negative) 04/06/21 10:28 Urine Ictotest Negative (Negative) 04/06/21 10:28 Urine Urobilinogen 4.0 mg/dL (<2.0) 04/06/21 10:28 Ur Leukocyte Esterase Neg (Negative) 04/06/21 10:28 Urine WBC (Auto) 5.0 /HPF (0.0-6.0) 04/06/21 10:28 Urine RBC (Auto) 3.0 /HPF (0.0-6.0) 04/06/21 10:28 U Epithel Cells (Auto) 1.0 /HPF (0-13.0) 04/06/21 10:28 Urine Bacteria (Auto) 1+ /HPF (Negative) 04/06/21 10:28 Urine Mucus 1+ /HPF 04/06/21 10:28 Urine Creatinine 584.3 mg/dL (0.1-20.0) H 04/07/21 06:51 Urine Microalbumin 16.8 mg/dL (0.1-34.0) 04/07/21 06:51 Microalb/Creat Ratio 28.7 ug/mg 04/07/21 06:51 Protein/Creatinin Ratio 0.14 04/07/21 06:51 Urine Sodium 53 mmol/L 04/07/21 06:51 Urine Total Protein 81 mg/dL (5-11.8) H 04/07/21 06:51 Coronavirus (PCR) Negative (Negative) 04/01/21 Unknown Microbiology: Microbiology 04/06/21 10:03 Peripheral/Venous Blood Culture - Preliminary Culture in Progress 04/06/21 10:03 Peripheral/Venous Blood Culture - Preliminary Culture in Progress Sam/IV: Voiding Method Incontinent Active Medications - Current Medications Current Medications: Generic Name Dose Route Start Last Admin Trade Name Freq PRN Reason Stop Dose Admin Acetaminophen 650 mg 03/30/21 22:48 04/05/21 20:52 Acetaminophen 325 Mg Tab PO 650 mg Q4H PRN Administration Pain, Mild (1-3) Aspirin 325 mg 03/31/21 10:00 04/07/21 09:08 Aspirin 325 Mg Tab PO 325 mg QDAY LORI Administration Atorvastatin Calcium 80 mg 04/02/21 22:00 04/06/21 21:19 Atorvastatin 40 Mg Tab PO Not Given QHS LORI Bisacodyl 10 mg 03/30/21 22:48 Bisacodyl 10 Mg Rect Supp NM QDAY PRN Constipation Clopidogrel Bisulfate 75 mg 04/02/21 10:00 04/07/21 09:08 Clopidogrel 75 Mg Tab PO 75 mg QDAY LORI Administration Heparin Sodium (Porcine) 5,000 unit 03/31/21 06:00 04/07/21 05:16 Heparin 5,000 Unit/1 Ml Vial SUB-Q 5,000 unit Q8HR LORI Administration Hydralazine HCl 10 mg 04/05/21 00:48 04/07/21 09:08 Hydralazine 20 Mg/1 Ml Inj IV 10 mg Q6HR PRN Administration SBP >/=160; DBP >/=100 Levetiracetam 500 mg/ Dextrose 105 mls @ 400 mls/hr 04/05/21 22:00 04/06/21 22:51 IV 400 mls/hr Q12HR LORI Administration Cefepime HCl 2 gm in 100 mls @ 200 mls/hr 04/06/21 10:00 04/07/21 09:07 Cefepime/Ns 2 Gm/100 Ml IV 200 mls/hr Q12HR LORI Administration Dextrose/Sodium Chloride 1,000 mls @ 75 mls/hr 04/06/21 13:00 04/06/21 14:15 D5/0.45ns IV 75 mls/hr DIRECT LORI Administration Vancomycin HCl 1,250 mg/ 275 mls @ 166.667 mls/hr 04/07/21 10:00 Sodium Chloride IV Q24H LORI Lorazepam 2 mg 04/05/21 10:43 Lorazepam 2 Mg/Ml Vial IV Q4H PRN Agitation Magnesium Hydroxide 30 ml 03/30/21 22:48 Magnesium Hydroxide (Mom) Oral Liqd Udc PO Q4H PRN Constipation Metoclopramide HCl 10 mg 03/30/21 22:48 Metoclopramide 10 Mg Tab PO Q6H PRN Nausea And Vomiting Morphine Sulfate 2 mg 03/30/21 22:48 04/05/21 00:19 Morphine 2 Mg/1 Ml Inj IV 2 mg Q4H PRN Administration Pain, Moderate (4-6) Ondansetron HCl 4 mg 03/30/21 22:48 Ondansetron 4 Mg/2 Ml Inj IV Q8H PRN Nausea And Vomiting Promethazine HCl 25 mg 03/30/21 22:48 Promethazine 25 Mg Rect Supp NM Q6H PRN Nausea And Vomiting Sodium Chloride 10 ml 03/31/21 10:00 04/07/21 09:08 Sodium Chloride 0.9% 10 Ml Flush Syringe IV 10 ml BID LORI Administration Sodium Chloride 10 ml 03/30/21 22:48 Sodium Chloride 0.9% 10 Ml Flush Syringe IV PRN PRN LINE FLUSH Nutrition/Malnutrition Assess - Dietary Evaluation Nutrition/Malnutrition Findings: Nutrition Notes Start: 03/31/21 10:46 Freq: Status: Active Protocol: Document 03/31/21 10:46 (Rec: 03/31/21 10:49 [id number]) Nutrition Notes Need for Assessment generated from: MD Order,Education Initial or Follow up Brief Note Current Diagnosis Coronary Artery Disease, Hypertension,Stroke Current Diet Cardiac Subjective/Other Information MD order for diet education. Gave pt sister Candy heart healthy diet education and talked about reducing amount of sodium in pt diet. 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
[2021-04-07] MEDS: levETIRAcetam 500 MG in DEXTROSE 5% IN WATER 100 ML IV SCH ×2 (09:27→21:27)
[2021-04-07] MEDS ORDERED: VANCOMYCIN/NS 1 GM/250 ML 1 GM/250 ML BAG IV SCH (10:00)
[2021-04-07] MEDS: VANCOMYCIN 1,250 MG in SODIUM CHLORIDE 0.9% 250ML 250 ML IV SCH (10:06)
--- NOTE | 2021-04-07 10:15 | Progress Note ---
Assessment and Plan Assessment and Plan # Possible new onset partial seizure - today he is with left side stiffness and lack of response -EEG is remarkable for mild slowing no epileptiform discharges is noted -Ativan 2 mg prn -Keppra 1000 IV once then 500 mg bid -he is seizure free since 18th of this month # Acute CVA (cerebrovascular accident) -pt. presented with new onset left side weakness -he is with remote CVA and aphasia ?? - CT brain is remarkable for L.LACEY infarct with edema -CTA occluded L.ICA and L.LACEY with possible thrombus L.MCA? and stenosis in R.MCA -echo is pending -MRI brain right LACEY subacute infarct -MRI cervical is unable to do -ST and PT -add Plavix 75 mg daily Patient admitted and placed on daily aspirin 81 and statin.80 mg -LDL#181 -repeat MRI brain due to change in exam and worsening left side weakness ? R/O New CVA # Brisk reflexes -r/o Cervical mylopathy -MRI cervical spine could not be done -CT cervical is remarkable for cervical spinal stenosis C2-3 and C6-7 -B12 # is WNL # Hypertension -We will resume routine home medications and monitor vital signs closely. # DVT prophylaxis -Patient placed on subcutaneous heparin. #Full code status Patient is full code. PLAN 1- Keppra 500 mg bid 2- EEG No sign of seizure 3- Ativan 2 mg prn for seizure 4- ST/PT 5- Lipitor increase to 80 mg,ASA 81 mg Plus Plavix 75 mg 6- cardiac monitoring 7- Repeat MRI brain is pending will follow as needed Over all prognosis is quarded Subjective Date of service: 04/07/21 Principal diagnosis: CVA and swallowing diffiulty , aphasia Interval history: - No seizure is reported - still with no clear speech out put no headache this am -Fluroscopic swallow is noted -MRI Brain repeat is pending -CT cervical is remarkable for spinal stenosis at C2-3 and C6-7 -Echo# 65-70% EF with left ventricular hypertrophy. Objective - Vital Sign Vital Signs - 12hr 04/06/21 04/07/21 04/07/21 23:35 04:13 04:51 Temperature 98.6 F 98.1 F Pulse Rate 109 H 111 H Respiratory 18 18 Rate Blood Pressure 174/91 176/86 O2 Sat by Pulse 97 100 97 Oximetry 04/07/21 06:10 Temperature Pulse Rate 111 H Respiratory Rate Blood Pressure 176/86 O2 Sat by Pulse Oximetry - General Apperance Constitutional: comfortable - EENT EENT: PERRL, mucous membranes moist - Respiratory Respiratory: chest non-tender, lungs clear, rhonchi - Cardiovascular Cardiovascular: regular rate, normal S1, normal S2 Extremities: no peripheral edema bilat, no clubbing, cyanosis - Gastrointestinal Gastrointestinal: normoactive bowel sounds - Integumentary Integumentary: normal - Neurologic Cranial nerve examination: other (speech impairment , left facial droop ,) Detailed motor examination: other (right is 4-/5 left is with increase tone upper and lower , clonus is noted Bilateral lower , gait not able to assess.) - Laboratory Findings CBC and BMP: 04/07/21 05:24 04/07/21 05:24 Abnormal Lab Findings: Abnormal Labs 03/30/21 03/30/21 03/30/21 19:58 19:58 19:58 WBC 11.4 H Hgb Hct MCH MCHC [place] % (Auto) 10.1 H [place] # (Auto) 1.2 H Chloride Carbon Dioxide BUN 31 H Creatinine 1.4 H Glucose POC Glucose Total Creatine Kinase 498 H CK-MB (CK-2) 5.0 H HDL Cholesterol Vitamin B12 PTH Intact Ur Specific [place] Urine Creatinine Urine Total Protein 03/31/21 03/31/21 03/31/21 05:11 05:11 15:28 WBC Hgb Hct MCH MCHC [place] % (Auto) 9.5 H [place] # (Auto) 1.0 H Chloride Carbon Dioxide BUN 27 H Creatinine Glucose POC Glucose 136 H Total Creatine Kinase CK-MB (CK-2) HDL Cholesterol 65 H Vitamin B12 PTH Intact Ur Specific [place] Urine Creatinine Urine Total Protein 04/01/21 04/01/21 04/01/21 06:11 07:21 07:21 WBC Hgb 15.7 H Hct MCH MCHC [place] % (Auto) 8.0 H [place] # (Auto) 0.9 H Chloride Carbon Dioxide BUN 29 H Creatinine Glucose 108 H POC Glucose 109 H Total Creatine Kinase CK-MB (CK-2) HDL Cholesterol Vitamin B12 PTH Intact Ur Specific [place] Urine Creatinine Urine Total Protein 04/02/21 04/03/21 04/05/21 23:53 02:20 14:55 WBC 12.3 H Hgb 16.0 H Hct 45.9 H MCH MCHC 35 H [place] % (Auto) [place] # (Auto) Chloride 97.9 L Carbon Dioxide BUN 24 H Creatinine 1.4 H Glucose POC Glucose Total Creatine Kinase CK-MB (CK-2) HDL Cholesterol Vitamin B12 1352 H PTH Intact Ur Specific [place] Urine Creatinine Urine Total Protein 04/05/21 04/06/21 04/06/21 14:55 08:01 10:28 WBC Hgb Hct MCH MCHC [place] % (Auto) [place] # (Auto) Chloride 108.5 H Carbon Dioxide 19 L D BUN 28 H 37 H Creatinine 1.5 H 1.8 H Glucose 117 H 105 H POC Glucose Total Creatine Kinase 3608 H 4728 H CK-MB (CK-2) HDL Cholesterol Vitamin B12 PTH Intact Ur Specific [place] 1.032 H Urine Creatinine Urine Total Protein 04/07/21 04/07/21 04/07/21 05:24 05:24 05:24 WBC Hgb Hct MCH 33 H MCHC 35 H [place] % (Auto) [place] # (Auto) Chloride 110.4 H Carbon Dioxide 20 L BUN 33 H Creatinine 1.4 H Glucose 117 H POC Glucose Total Creatine Kinase CK-MB (CK-2) HDL Cholesterol Vitamin B12 PTH Intact 92.00 H Ur Specific [place] Urine Creatinine Urine Total Protein 04/07/21 06:51 WBC Hgb Hct MCH MCHC [place] % (Auto) [place] # (Auto) Chloride Carbon Dioxide BUN Creatinine Glucose POC Glucose Total Creatine Kinase CK-MB (CK-2) HDL Cholesterol Vitamin B12 PTH Intact Ur Specific [place] Urine Creatinine 584.3 H Urine Total Protein 81 H
[2021-04-07] MEDS: ACETAMINOPHEN 325 MG TAB PO PRN (12:44)
[2021-04-08] MEDS: HEPARIN 5,000 UNIT/1 ML VIAL SUB-Q SCH ×3 (05:48→22:16)
[2021-04-08 06:00] LABS: Hematocrit 38.5 % (35.5-45.6); Hemoglobin 13.3 gm/dl (11.8-15.2); Mean Corpuscular HGB Conc 35 % (32-34); Mean Corpuscular Volume 94 fl (84-94); Platelet Count 239 K/mm3 (140-440); Red Cell Distribution Width 13.6 % (13.2-15.2)
[2021-04-08 06:06] LABS: BUN/Creatinine Ratio 22; Blood Urea Nitrogen 24 mg/dL (9-20); Calcium 8.6 mg/dL (8.4-10.2); Hemolysis Index 21
--- NOTE | 2021-04-08 08:45 | Progress Note ---
Assessment and Plan Assessment and plan: Acute CVA. Aspiration PNA Hypertension History of CAD/PTCA. 03/31/2021. CT scan of the head shows extensive edema involving the anteromedial right frontal lobe indicative of evolving infarct along the right LACEY distribution. There is evidence of microvascular angiopathy with multiple old infarcts. No evidence of acute intracranial hemorrhage. CTA of the head and neck reveals occlusion of the distal right ICA and LACEY with evolving infarct. The findings are compatible with occlusion of the proximal right MCA with collateral flow distally. There is marked stenosis involving the left MCA with notable active since collateral vessels. Neurology consultation. PT/OT/ST. Continue aspirin and statin. 04/01/2021. Follow-up MRI brain for acute CVA. Continue medications for hypertension. Neurology following. PT/OT/ST. Continue aspirin and statin. 04/02/21 Patient presented with left sided weakness. MRI Brain done, report still pending. Patient has expressive aphasia from previous stroke 04/03/21 Patient had MRI done yesterday confirmed large right LAECY stroke. He is being followed by Neurology. For acute rehab placement. 04/04/21 Patient with acute ischemic stroke with large right LACEY lesion. MRI cervical spine was ordered but after several attempts even with Ativan iv and Haldol iv he could not tolerate so CT Cervical spine ordered instead. talent sourcing specialist had a bed for him at Rehab facility but awaiting tests and clearance from Neurology. 04/05/21 Patient with acute ischemic stroke with large right LACEY lesion. Plan was for him to go to Acute Rehab. He had a bed offer yesterday but was waiting for MRI cervical spine to be done. He could not tolerate MRI, so CT Cervical spi ne was done instead. However this morning he had seizures witnessed by Neurologist. He was given Ativan iv, Keppra iv, and EEG done. I discussed with sister at bedside, gave update and answered all questions. i also discussed with Neurology and he recommends to transfer to ICU if any more seizures. 04/06/21 Patient with acute ischemic stroke with large right LACEY lesion. Yesterday had partial seizures, started on Ativan , Keppra by Neurology. Now has fever, tachycardia. labs show leukocytosis, ZEUS. Chest X ray shows LLL pneumonia. Started Cefepime and Vanco after cultures. Consult ID. Also consulted Nephrology for acute ZEUS with Cr 1.8. Today, was seen by Neurology and repeat MRI Brain ordered. keep NPO. Changed iv fluid to D51/2NS 04/07/21 Patient with acute ischemic stroke with large right LACEY lesion. Had partial seizures on 04/05, started on Ativan, keppra. No more witnessed seizures. He had fever and CXR showed Pneumonia left base. Now being treated with Cefepime and Vanco for Sepsis. ZEUS improving. He is NPO. Speech therapy to evaluate. When stable will need acute rehab. he had bed offer several days ago but not stable for discharge to rehab yet. I spoke with sister at bedside 2 days ago. 04/08/21. Cont. Keppra andn Ativan. Neuro rreports EEG shows no sign of seizure. Lipitor increased to 80 mg. Cont. ASA and Plavix. Repeat MRI brain pending. PT/OT/ST History Interval history: No new issues overnight. Hospitalist Physical - Constitutional Vitals: Temp Pulse Resp BP Pulse Ox 97.7 F 94 H 16 150/87 98 04/08/21 03:41 04/08/21 03:41 04/08/21 03:41 04/08/21 03:41 04/08/21 08:35 General appearance: Present: no acute distress, well-nourished - EENT Eyes: Present: PERRL, EOM intact ENT: hearing intact, clear oral mucosa, dentition normal - Neck Neck: Present: supple, normal ROM - Respiratory Respiratory effort: normal Respiratory: bilateral: CTA - Cardiovascular Rhythm: regular Heart Sounds: Present: S1 & S2. Absent: gallop, rub - Extremities Extremities: no ischemia, No edema, Full ROM - Abdominal General gastrointestinal: soft, non-tender, non-distended, normal bowel sounds - Integumentary Integumentary: Present: clear, warm, dry - Neurologic Neurologic: CNII-XII intact, moves all extremities HEART Score - HEART Score Troponin: Troponin T < 0.010 ng/mL (0.00-0.029) 03/30/21 19:58 Results - Labs CBC & Chem 7: 04/08/21 05:09 04/08/21 05:09 Labs: Laboratory Last Values WBC 8.0 K/mm3 (4.5-11.0) 04/08/21 05:09 RBC 4.10 M/mm3 (3.65-5.03) 04/08/21 05:09 Hgb 13.3 gm/dl (11.8-15.2) 04/08/21 05:09 Hct 38.5 % (35.5-45.6) 04/08/21 05:09 MCV 94 fl (84-94) 04/08/21 05:09 MCH 32 pg (28-32) 04/08/21 05:09 MCHC 35 % (32-34) H 04/08/21 05:09 RDW 13.6 % (13.2-15.2) 04/08/21 05:09 Plt Count 239 K/mm3 (140-440) 04/08/21 05:09 Lymph % (Auto) 33.7 % (13.4-35.0) 04/01/21 07:21 [place] % (Auto) 8.0 % (0.0-7.3) H 04/01/21 07:21 Eos % (Auto) 0.3 % (0.0-4.3) 04/01/21 07:21 Baso % (Auto) 0.3 % (0.0-1.8) 04/01/21 07:21 Lymph # (Auto) 3.7 K/mm3 (1.2-5.4) 04/01/21 07:21 [place] # (Auto) 0.9 K/mm3 (0.0-0.8) H 04/01/21 07:21 Eos # (Auto) 0.0 K/mm3 (0.0-0.4) 04/01/21 07:21 Baso # (Auto) 0.0 K/mm3 (0.0-0.1) 04/01/21 07:21 Seg Neutrophils % 57.7 % (40.0-70.0) 04/01/21 07:21 Seg Neutrophils # 6.3 K/mm3 (1.8-7.7) 04/01/21 07:21 ESR 1 mm/Hr (0-20) 04/03/21 02:40 PT 13.6 Sec. (12.2-14.9) 03/31/21 05:11 INR 0.98 (0.87-1.13) 03/31/21 05:11 APTT 27.6 Sec. (24.2-36.6) 03/30/21 19:58 Thrombin Time 18.9 Sec. (15.1-19.6) 03/30/21 19:58 Sodium 143 mmol/L (137-145) 04/08/21 05:09 Potassium 3.6 mmol/L (3.6-5.0) 04/08/21 05:09 Chloride 108.8 mmol/L (98-107) H 04/08/21 05:09 Carbon Dioxide 20 mmol/L (22-30) L 04/08/21 05:09 Anion Gap 18 mmol/L 04/08/21 05:09 BUN 24 mg/dL (9-20) H 04/08/21 05:09 Creatinine 1.1 mg/dL (0.8-1.3) 04/08/21 05:09 Estimated GFR > 60 ml/min 04/08/21 05:09 BUN/Creatinine Ratio 22 % 04/08/21 05:09 Glucose 110 mg/dL (75-100) H 04/08/21 05:09 POC Glucose 102 mg/dL (70-105) 04/02/21 15:29 Lactic Acid 1.00 mmol/L (0.7-2.0) 04/07/21 09:13 Calcium 8.6 mg/dL (8.4-10.2) 04/08/21 05:09 Phosphorus 3.10 mg/dL (2.5-4.5) 04/07/21 05:24 Magnesium 2.00 mg/dL (1.7-2.3) 04/05/21 14:55 Total Creatine Kinase 5035 units/L (55-170) H 04/08/21 05:13 CK-MB (CK-2) 5.0 ng/mL (0.0-4.0) H 03/30/21 19:58 CK-MB (CK-2) Rel Index 1.0 (0-4) 03/30/21 19:58 Troponin T < 0.010 ng/mL (0.00-0.029) 03/30/21 19:58 Triglycerides 50 mg/dL (2-149) 03/31/21 05:11 Cholesterol 191 mg/dL (50-199) 03/31/21 05:11 LDL Cholesterol Direct 118 mg/dL (50-130) 03/31/21 05:11 HDL Cholesterol 65 mg/dL (40-59) H 03/31/21 05:11 Cholesterol/HDL Ratio 2.93 % 03/31/21 05:11 Vitamin B12 1352 pg/mL (211-911) H 04/02/21 23:53 PTH Intact 92.00 pg/mL (15-65) H 04/07/21 05:24 Urine Color [place] (Yellow) 04/06/21 10:28 Urine Turbidity Clear (Clear) 04/06/21 10:28 Urine pH 5.0 (5.0-7.0) 04/06/21 10:28 Ur Specific [place] 1.032 (1.003-1.030) H 04/06/21 10:28 Urine Protein 100 mg/dl mg/dL (Negative) 04/06/21 10:28 Urine Glucose (UA) Neg mg/dL (Negative) 04/06/21 10:28 Urine Ketones 20 mg/dL (Negative) 04/06/21 10:28 Urine Blood Neg (Negative) 04/06/21 10:28 Urine Nitrite Neg (Negative) 04/06/21 10:28 Urine Bilirubin Sm (Negative) 04/06/21 10:28 Urine Ictotest Negative (Negative) 04/06/21 10:28 Urine Urobilinogen 4.0 mg/dL (<2.0) 04/06/21 10:28 Ur Leukocyte Esterase Neg (Negative) 04/06/21 10:28 Urine WBC (Auto) 5.0 /HPF (0.0-6.0) 04/06/21 10:28 Urine RBC (Auto) 3.0 /HPF (0.0-6.0) 04/06/21 10:28 U Epithel Cells (Auto) 1.0 /HPF (0-13.0) 04/06/21 10:28 Urine Bacteria (Auto) 1+ /HPF (Negative) 04/06/21 10:28 Urine Mucus 1+ /HPF 04/06/21 10:28 Urine Eosinophils None seen (None Seen) 04/06/21 06:51 Urine Creatinine 584.3 mg/dL (0.1-20.0) H 04/07/21 06:51 Urine Microalbumin 16.8 mg/dL (0.1-34.0) 04/07/21 06:51 Microalb/Creat Ratio 28.7 ug/mg 04/07/21 06:51 Protein/Creatinin Ratio 0.14 04/07/21 06:51 Urine Sodium 53 mmol/L 04/07/21 06:51 Urine Total Protein 81 mg/dL (5-11.8) H 04/07/21 06:51 Nasal Screen MRSA (PCR) Negative (Negative) 04/06/21 13:34 Coronavirus (PCR) Negative (Negative) 04/01/21 Unknown Microbiology: Microbiology 04/06/21 10:28 Urine,[place] Urine Culture - Preliminary 04/06/21 10:03 Peripheral/Venous Blood Culture - Preliminary NO GROWTH AFTER 24 HOURS 04/06/21 10:03 Peripheral/Venous Blood Culture - Preliminary NO GROWTH AFTER 24 HOURS Sam/IV: Voiding Method Incontinent Active Medications - Current Medications Current Medications: Generic Name Dose Route Start Last Admin Trade Name Freq PRN Reason Stop Dose Admin Acetaminophen 650 mg 03/30/21 22:48 04/07/21 12:44 Acetaminophen 325 Mg Tab PO 650 mg Q4H PRN Administration Pain, Mild (1-3) Aspirin 325 mg 03/31/21 10:00 04/07/21 09:08 Aspirin 325 Mg Tab PO 325 mg QDAY LORI Administration Atorvastatin Calcium 80 mg 04/02/21 22:00 04/07/21 21:21 Atorvastatin 40 Mg Tab PO 80 mg QHS LORI Administration Bisacodyl 10 mg 03/30/21 22:48 Bisacodyl 10 Mg Rect Supp [place] QDAY PRN Constipation Clopidogrel Bisulfate 75 mg 04/02/21 10:00 04/07/21 09:08 Clopidogrel 75 Mg Tab PO 75 mg QDAY LORI Administration Heparin Sodium (Porcine) 5,000 unit 03/31/21 06:00 04/08/21 05:48 Heparin 5,000 Unit/1 Ml Vial SUB-Q 5,000 unit Q8HR LORI Administration Hydralazine HCl 10 mg 04/05/21 00:48 04/07/21 09:08 Hydralazine 20 Mg/1 Ml Inj IV 10 mg Q6HR PRN Administration SBP >/=160; DBP >/=100 Levetiracetam 500 mg/ Dextrose 105 mls @ 400 mls/hr 04/05/21 22:00 04/07/21 21:27 IV 400 mls/hr Q12HR LORI Administration Cefepime HCl 2 gm in 100 mls @ 200 mls/hr 04/06/21 10:00 04/07/21 21:19 Cefepime/Ns 2 Gm/100 Ml IV 200 mls/hr Q12HR LORI Administration Dextrose/Sodium Chloride 1,000 mls @ 75 mls/hr 04/06/21 13:00 04/06/21 14:15 D5/0.45ns IV 75 mls/hr DIRECT LORI Administration Vancomycin HCl 1,250 mg/ 275 mls @ 166.667 mls/hr 04/07/21 10:00 04/07/21 14:38 Sodium Chloride IV Infused Q24H LORI Infusion Lorazepam 2 mg 04/05/21 10:43 Lorazepam 2 Mg/Ml Vial IV Q4H PRN Agitation Magnesium Hydroxide 30 ml 03/30/21 22:48 Magnesium Hydroxide (Mom) Oral Liqd Udc PO Q4H PRN Constipation Metoclopramide HCl 10 mg 03/30/21 22:48 Metoclopramide 10 Mg Tab PO Q6H PRN Nausea And Vomiting Morphine Sulfate 2 mg 03/30/21 22:48 04/05/21 00:19 Morphine 2 Mg/1 Ml Inj IV 2 mg Q4H PRN Administration Pain, Moderate (4-6) Ondansetron HCl 4 mg 03/30/21 22:48 Ondansetron 4 Mg/2 Ml Inj IV Q8H PRN Nausea And Vomiting Promethazine HCl 25 mg 03/30/21 22:48 Promethazine 25 Mg Rect Supp [place] Q6H PRN Nausea And Vomiting Sodium Chloride 10 ml 03/31/21 10:00 04/07/21 21:21 Sodium Chloride 0.9% 10 Ml Flush Syringe IV 10 ml BID LORI Administration Sodium Chloride 10 ml 03/30/21 22:48 Sodium Chloride 0.9% 10 Ml Flush Syringe IV PRN PRN LINE FLUSH Nutrition/Malnutrition Assess - Dietary Evaluation Nutrition/Malnutrition Findings: Nutrition Notes Start: 03/31/21 10:46 Freq: Status: Active Protocol: Document 03/31/21 10:46 CALVIN (Rec: 03/31/21 10:49 CALVIN [id number]) Nutrition Notes Need for Assessment generated from: MD Order,Education Initial or Follow up Brief Note Current Diagnosis Coronary Artery Disease, Hypertension,Stroke Current Diet Cardiac Subjective/Other Information MD order for diet education. Gave pt sister Candy heart healthy diet education and talked about reducing amount of sodium in pt diet. 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
[2021-04-08] MEDS: levETIRAcetam 500 MG in DEXTROSE 5% IN WATER 100 ML IV SCH ×2 (10:10→22:18)
[2021-04-08] MEDS: CLOPIDOGREL 75 MG TAB PO SCH (10:10)
[2021-04-08] MEDS: ASPIRIN 325 MG TAB PO SCH (10:10)
[2021-04-08] MEDS: CEFEPIME/NS 2 GM/100 ML 2 GM/100 ML BAG IV SCH (11:04)
[2021-04-08] MEDS: VANCOMYCIN 1,250 MG in SODIUM CHLORIDE 0.9% 250ML 250 ML IV SCH (11:25)
--- NOTE | 2021-04-08 12:26 | Progress Note ---
Assessment and Plan Assessment Acute CVA ZEUS possibly 2/2 prerenal, Rhabdomyolysis, ISHAN, ? 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 Dee Subjective Date of service: 04/08/21 Principal diagnosis: CVA and swallowing diffiulty , aphasia Interval history: Patient seen lying in bed, awake, does not speak Objective - Vital Signs Vital signs: Vital Signs - 12hr 04/08/21 04/08/21 03:41 08:35 Temperature 97.7 F Pulse Rate 94 H Respiratory 16 Rate Blood Pressure 150/87 O2 Sat by Pulse 96 98 Oximetry - General Appearance General appearance: fatigue EENT: ATNC, PERRL Neck: no JVD, supple Respiratory: Present: Decreased Breath Sounds Cardiology: S1S2 Gastrointestinal: normoactive bowel sounds Integumentary: warm and dry Neurologic: other (Awake) Musculoskeletal: other (No edema) - Lab 04/08/21 05:09 04/08/21 05:09 Most recent lab results Calcium 8.6 mg/dL (8.4-10.2) 04/08/21 05:09 Phosphorus 3.10 mg/dL (2.5-4.5) 04/07/21 05:24 Magnesium 2.00 mg/dL (1.7-2.3) 04/05/21 14:55 Urine Creatinine 584.3 mg/dL (0.1-20.0) H 04/07/21 06:51 Urine Sodium 53 mmol/L 04/07/21 06:51 Urine Total Protein 81 mg/dL (5-11.8) H 04/07/21 06:51 Medications & Allergies - Medications Allergies/Adverse Reactions: Allergies No Known Allergies Allergy (Verified 03/30/21 20:15) Home Medications: Home Medications Medication Instructions Recorded Confirmed Last Taken Type Amlodipine Besylate [Norvasc] 5 mg PO QDAY 03/30/21 03/30/21 Unknown History Aspirin [Adult Aspirin] 81 mg PO QDAY 03/30/21 03/30/21 Unknown History AtorvaSTATin [Lipitor] 20 mg PO QHS 03/30/21 03/30/21 Unknown History Butalb/Acetaminophen/Caffeine 1 each PO QDAY 03/30/21 03/30/21 Unknown History [Iiripm-Vwiarsod-Iepa 50-325-40] Citalopram [celeXA] 10 mg PO QDAY 03/30/21 03/30/21 Unknown History Mecobalamin [B12 Active] 1,000 mcg PO QDAY 03/30/21 03/30/21 Unknown History Metoprolol Xl [Metoprolol 100 mg PO QDAY 03/30/21 03/30/21 Unknown History SUCCINATE ER TAB] Oxybutynin [Ditropan] 5 mg PO BID 03/30/21 03/30/21 Unknown History lisinopriL [Zestril TAB] 40 mg PO QDAY 03/30/21 03/30/21 Unknown History Active Medications: Generic Name Dose Route Start Last Admin Trade Name Freq PRN Reason Stop Dose Admin Acetaminophen 650 mg 03/30/21 22:48 04/07/21 12:44 Acetaminophen 325 Mg Tab PO 650 mg Q4H PRN Administration Pain, Mild (1-3) Aspirin 325 mg 03/31/21 10:00 04/08/21 10:10 Aspirin 325 Mg Tab PO 325 mg QDAY LORI Administration Atorvastatin Calcium 80 mg 04/02/21 22:00 04/07/21 21:21 Atorvastatin 40 Mg Tab PO 80 mg QHS LORI Administration Bisacodyl 10 mg 03/30/21 22:48 Bisacodyl 10 Mg Rect Supp ID QDAY PRN Constipation Clopidogrel Bisulfate 75 mg 04/02/21 10:00 04/08/21 10:10 Clopidogrel 75 Mg Tab PO 75 mg QDAY LORI Administration Heparin Sodium (Porcine) 5,000 unit 03/31/21 06:00 04/08/21 05:48 Heparin 5,000 Unit/1 Ml Vial SUB-Q 5,000 unit Q8HR LORI Administration Hydralazine HCl 10 mg 04/05/21 00:48 04/07/21 09:08 Hydralazine 20 Mg/1 Ml Inj IV 10 mg Q6HR PRN Administration SBP >/=160; DBP >/=100 Levetiracetam 500 mg/ Dextrose 105 mls @ 400 mls/hr 04/05/21 22:00 04/08/21 10:10 IV 400 mls/hr Q12HR LORI Administration Cefepime HCl 2 gm in 100 mls @ 200 mls/hr 04/06/21 10:00 04/08/21 11:04 Cefepime/Ns 2 Gm/100 Ml IV 200 mls/hr Q12HR LORI Administration Dextrose/Sodium Chloride 1,000 mls @ 75 mls/hr 04/06/21 13:00 04/06/21 14:15 D5/0.45ns IV 75 mls/hr DIRECT LORI Administration Vancomycin HCl 1,250 mg/ 275 mls @ 166.667 mls/hr 04/07/21 10:00 04/07/21 14:38 Sodium Chloride IV Infused Q24H LORI Infusion Lorazepam 2 mg 04/05/21 10:43 Lorazepam 2 Mg/Ml Vial IV Q4H PRN Agitation Magnesium Hydroxide 30 ml 03/30/21 22:48 Magnesium Hydroxide (Mom) Oral Liqd Udc PO Q4H PRN Constipation Metoclopramide HCl 10 mg 03/30/21 22:48 Metoclopramide 10 Mg Tab PO Q6H PRN Nausea And Vomiting Morphine Sulfate 2 mg 03/30/21 22:48 04/05/21 00:19 Morphine 2 Mg/1 Ml Inj IV 2 mg Q4H PRN Administration Pain, Moderate (4-6) Ondansetron HCl 4 mg 03/30/21 22:48 Ondansetron 4 Mg/2 Ml Inj IV Q8H PRN Nausea And Vomiting Promethazine HCl 25 mg 03/30/21 22:48 Promethazine 25 Mg Rect Supp ID Q6H PRN Nausea And Vomiting Sodium Chloride 10 ml 03/31/21 10:00 04/07/21 21:21 Sodium Chloride 0.9% 10 Ml Flush Syringe IV 10 ml BID LORI Administration Sodium Chloride 10 ml 03/30/21 22:48 Sodium Chloride 0.9% 10 Ml Flush Syringe IV PRN PRN LINE FLUSH
--- NOTE | 2021-04-08 13:06 | Progress Note ---
Assessment and Plan Cultures: 04/06/2021 blood culture: No growth 04/06/2021 urine culture: Mixed jules MRSA nasal screen: negative Assessment: 60-year-old male with history of multiple strokes with residual right-sided weakness, admitted on 03/31/2021 secondary to acute left-sided weakness associated with headaches; found to have large acute right LACEY infarct also with: #Sepsis: probably secondary to pneumonia v/s aspiration. Urinalysis negative. SARS-CoV-2 PCR negative. #Nosocomial v/s aspiration pneumonia: Patient with recent seizures post CVA. Chest x-ray with left basilar airspace consolidation. MRSA nasal PCR is negative. #Acute CVA/right LACEY infarct: Neurology on board. #ZEUS: Renally adjust antibiotics Recommendations: -vancomycin discontinued -Cefepime switched to Ceftriaxone x 2 more days Garett Starkey MD, FACP [facility] ([facility]) O: [phone] F: [phone] Subjective Date of service: 04/08/21 Principal diagnosis: CVA and swallowing diffiulty , aphasia Interval history: Afebrile. Awake, alert. Appears aphasic. On room air. MRSA nasal screen is negative. Objective - Exam Narrative Exam: Physical Exam: Constitutional: Awake, alert, no distress Head, Ears, Nose: Normocephalic, atraumatic. External ears, nose normal Eyes: Conjunctivae/corneas clear. No icterus. No ptosis. Neck: Supple, no meningeal signs Cardiovascular: S1, S2 normal. Respiratory: Good air entry, clear to auscultation bilaterally GI: Soft, non-tender; bowel sounds normal. No peritoneal signs Musculoskeletal: No pedal edema, no cyanosis. Skin: No rash or abscess Hem/Lymphatic: No palpable cervical or supraclavicular nodes. No lymphangitis Psych: No agitation Neurological: Awake, alert, aphasic. - Constitutional Vitals: Vital Signs Temp Pulse Resp BP Pulse Ox 98.5 F 88 17 149/86 95 04/08/21 12:00 04/08/21 12:00 04/08/21 12:00 04/08/21 12:00 04/08/21 12:00 Temperature -Last 24 Hours Temperature 98.5 F Temperature 97.7 F Temperature 98.0 F Temperature 98.1 F - Labs CBC & Chem 7: 04/08/21 05:09 04/08/21 05:09 Labs: Abnormal lab results 04/08/21 04/08/21 04/08/21 Range/Units 05:09 05:09 05:13 MCHC 35 H (32-34) % Chloride 108.8 H (98-107) mmol/L Carbon Dioxide 20 L (22-30) mmol/L BUN 24 H (9-20) mg/dL Glucose 110 H (75-100) mg/dL Total Creatine Kinase 5035 H (55-170) units/L
[2021-04-08] MEDS: cefTRIAXone/NS 1 GM/50 ML 1 GM/50 ML BAG IV SCH (16:46)
[2021-04-08] MEDS: D5W/0.45% NACL 1,000 ML IV SCH (18:25)
[2021-04-08] MEDS: ACETAMINOPHEN 325 MG TAB PO PRN (22:15)
[2021-04-09 06:00] LABS: BUN/Creatinine Ratio 17; Blood Urea Nitrogen 17 mg/dL (9-20); Calcium 8.6 mg/dL (8.4-10.2); Hemolysis Index 85
[2021-04-09] MEDS: HEPARIN 5,000 UNIT/1 ML VIAL SUB-Q SCH ×3 (06:02→21:38)
[2021-04-09] MEDS: levETIRAcetam 500 MG in DEXTROSE 5% IN WATER 100 ML IV SCH (10:15)
[2021-04-09] MEDS: cefTRIAXone/NS 1 GM/50 ML 1 GM/50 ML BAG IV SCH (11:58)
--- NOTE | 2021-04-09 12:08 | Progress Note ---
Assessment and Plan Acute CVA ZEUS possibly 2/2 prerenal, Rhabdomyolysis, ISHAN, ? underlying CKD Possible new onset partial seizure HTN Plan: - ZEUS resolveed - No significant proteinuria - Renally dose medications - Obtain daily weights - Sam Catheter: No will sign off. Subjective Date of service: 04/09/21 Principal diagnosis: CVA and swallowing diffiulty , aphasia Interval history: no overnight events Objective - Vital Signs Vital signs: Vital Signs - 12hr 04/09/21 03:49 Temperature 98.3 F Pulse Rate 74 Respiratory 18 Rate Blood Pressure 136/91 O2 Sat by Pulse 96 Oximetry - Lab 04/08/21 05:09 04/09/21 05:29 Most recent lab results Calcium 8.6 mg/dL (8.4-10.2) 04/09/21 05:29 Phosphorus 3.10 mg/dL (2.5-4.5) 04/07/21 05:24 Magnesium 2.00 mg/dL (1.7-2.3) 04/05/21 14:55 Urine Creatinine 584.3 mg/dL (0.1-20.0) H 04/07/21 06:51 Urine Sodium 53 mmol/L 04/07/21 06:51 Urine Total Protein 81 mg/dL (5-11.8) H 04/07/21 06:51 Medications & Allergies - Medications Allergies/Adverse Reactions: Allergies No Known Allergies Allergy (Verified 03/30/21 20:15) Home Medications: Home Medications Medication Instructions Recorded Confirmed Last Taken Type Amlodipine Besylate [Norvasc] 5 mg PO QDAY 03/30/21 03/30/21 Unknown History Aspirin [Adult Aspirin] 81 mg PO QDAY 03/30/21 03/30/21 Unknown History AtorvaSTATin [Lipitor] 20 mg PO QHS 03/30/21 03/30/21 Unknown History Butalb/Acetaminophen/Caffeine 1 each PO QDAY 03/30/21 03/30/21 Unknown History [Pdjmhc-Cvseyasz-Zfnk 50-325-40] Citalopram [celeXA] 10 mg PO QDAY 03/30/21 03/30/21 Unknown History Mecobalamin [B12 Active] 1,000 mcg PO QDAY 03/30/21 03/30/21 Unknown History Metoprolol Xl [Metoprolol 100 mg PO QDAY 03/30/21 03/30/21 Unknown History SUCCINATE ER TAB] Oxybutynin [Ditropan] 5 mg PO BID 03/30/21 03/30/21 Unknown History lisinopriL [Zestril TAB] 40 mg PO QDAY 03/30/21 03/30/21 Unknown History Active Medications: Generic Name Dose Route Start Last Admin Trade Name Freq PRN Reason Stop Dose Admin Acetaminophen 650 mg 03/30/21 22:48 04/08/21 22:15 Acetaminophen 325 Mg Tab PO 650 mg Q4H PRN Administration Pain, Mild (1-3) Aspirin 325 mg 03/31/21 10:00 04/08/21 10:10 Aspirin 325 Mg Tab PO 325 mg QDAY LORI Administration Atorvastatin Calcium 80 mg 04/02/21 22:00 04/08/21 22:15 Atorvastatin 40 Mg Tab PO 80 mg QHS LORI Administration Bisacodyl 10 mg 03/30/21 22:48 Bisacodyl 10 Mg Rect Supp [place] QDAY PRN Constipation Clopidogrel Bisulfate 75 mg 04/02/21 10:00 04/08/21 10:10 Clopidogrel 75 Mg Tab PO 75 mg QDAY LORI Administration Heparin Sodium (Porcine) 5,000 unit 03/31/21 06:00 04/09/21 06:02 Heparin 5,000 Unit/1 Ml Vial SUB-Q 5,000 unit Q8HR LORI Administration Hydralazine HCl 10 mg 04/05/21 00:48 04/07/21 09:08 Hydralazine 20 Mg/1 Ml Inj IV 10 mg Q6HR PRN Administration SBP >/=160; DBP >/=100 Levetiracetam 500 mg/ Dextrose 105 mls @ 400 mls/hr 04/05/21 22:00 04/08/21 22:18 IV 400 mls/hr Q12HR LORI Administration Dextrose/Sodium Chloride 1,000 mls @ 75 mls/hr 04/06/21 13:00 04/08/21 18:25 D5/0.45ns IV 75 mls/hr DIRECT LORI Administration Ceftriaxone Sodium 1 gm in 50 mls @ 100 mls/hr 04/08/21 14:00 04/08/21 16:46 Rocephin/Ns 1 Gm/50 Ml IV 04/10/21 13:59 100 mls/hr Q24HR LORI Administration Protocol Lorazepam 2 mg 04/05/21 10:43 04/09/21 09:13 Lorazepam 2 Mg/Ml Vial IV 2 mg Q4H PRN Administration Agitation Magnesium Hydroxide 30 ml 03/30/21 22:48 Magnesium Hydroxide (Mom) Oral Liqd Udc PO Q4H PRN Constipation Metoclopramide HCl 10 mg 03/30/21 22:48 Metoclopramide 10 Mg Tab PO Q6H PRN Nausea And Vomiting Morphine Sulfate 2 mg 03/30/21 22:48 04/05/21 00:19 Morphine 2 Mg/1 Ml Inj IV 2 mg Q4H PRN Administration Pain, Moderate (4-6) Ondansetron HCl 4 mg 03/30/21 22:48 Ondansetron 4 Mg/2 Ml Inj IV Q8H PRN Nausea And Vomiting Promethazine HCl 25 mg 03/30/21 22:48 Promethazine 25 Mg Rect Supp [place] Q6H PRN Nausea And Vomiting Sodium Chloride 10 ml 03/31/21 10:00 04/08/21 22:16 Sodium Chloride 0.9% 10 Ml Flush Syringe IV 10 ml BID LORI Administration Sodium Chloride 10 ml 03/30/21 22:48 Sodium Chloride 0.9% 10 Ml Flush Syringe IV PRN PRN LINE FLUSH
--- NOTE | 2021-04-09 12:52 | Progress Note ---
Assessment and Plan Cultures: 04/06/2021 blood culture: No growth 04/06/2021 urine culture: Mixed jules MRSA nasal screen: negative Assessment: 60-year-old male with history of multiple strokes with residual right-sided weakness, admitted on 03/31/2021 secondary to acute left-sided weakness associated with headaches; found to have large acute right LACEY infarct also with: #Sepsis: probably secondary to pneumonia v/s aspiration. Urinalysis negative. SARS-CoV-2 PCR negative. #Nosocomial v/s aspiration pneumonia: Patient with recent seizures post CVA. Chest x-ray with left basilar airspace consolidation. MRSA nasal PCR is negative. #Acute CVA/right LACEY infarct: Neurology on board. #ZEUS: Renally adjust antibiotics Recommendations: -continue Ceftriaxone x 1 more day, then STOP ID will sign off. Please call with questions. Garett Starkey MD, FACP [facility] ([facility]) O: [phone] F: [phone] Subjective Date of service: 04/09/21 Principal diagnosis: CVA and swallowing diffiulty , aphasia Interval history: Afebrile. Awake, alert. Aphasic. No respiratory distress Objective - Exam Narrative Exam: Physical Exam: Constitutional: non verbal, no distress Head, Ears, Nose: Normocephalic, atraumatic. External ears, nose normal Eyes: Conjunctivae/corneas clear. No icterus. No ptosis. Neck: Supple, no meningeal signs Cardiovascular: S1, S2 normal. Respiratory: Good air entry, clear to auscultation bilaterally GI: Soft, non-tender; bowel sounds normal. No peritoneal signs Musculoskeletal: No pedal edema, no cyanosis. Skin: No rash or abscess Hem/Lymphatic: No palpable cervical or supraclavicular nodes. No lymphangitis Psych: No agitation Neurological: non verbal - Constitutional Vitals: Vital Signs Temp Pulse Resp BP Pulse Ox 98.3 F 74 18 136/91 96 04/09/21 03:49 04/09/21 03:49 04/09/21 03:49 04/09/21 03:49 04/09/21 03:49 Temperature -Last 24 Hours Temperature 98.3 F Temperature 98.0 F Temperature 98.5 F Temperature 98.2 F Temperature 98.2 F - Labs CBC & Chem 7: 04/08/21 05:09 04/09/21 05:29 Labs: Abnormal lab results 04/09/21 04/09/21 Range/Units 05:29 05:29 Chloride 108.1 H (98-107) mmol/L Glucose 105 H (75-100) mg/dL Total Creatine Kinase 2692 H (55-170) units/L
--- NOTE | 2021-04-09 13:50 | Progress Note ---
Assessment and Plan Assessment and plan: Acute CVA. Aspiration PNA Hypertension History of CAD/PTCA. 03/31/2021. CT scan of the head shows extensive edema involving the anteromedial right frontal lobe indicative of evolving infarct along the right LACEY distribution. There is evidence of microvascular angiopathy with multiple old infarcts. No evidence of acute intracranial hemorrhage. CTA of the head and neck reveals occlusion of the distal right ICA and LACEY with evolving infarct. The findings are compatible with occlusion of the proximal right MCA with collateral flow distally. There is marked stenosis involving the left MCA with notable active since collateral vessels. Neurology consultation. PT/OT/ST. Continue aspirin and statin. 04/01/2021. Follow-up MRI brain for acute CVA. Continue medications for hypertension. Neurology following. PT/OT/ST. Continue aspirin and statin. 04/02/21 Patient presented with left sided weakness. MRI Brain done, report still pending. Patient has expressive aphasia from previous stroke 04/03/21 Patient had MRI done yesterday confirmed large right LACEY stroke. He is being followed by Neurology. For acute rehab placement. 04/04/21 Patient with acute ischemic stroke with large right LACEY lesion. MRI cervical spine was ordered but after several attempts even with Ativan iv and Haldol iv he could not tolerate so CT Cervical spine ordered instead. 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 04/05/21 Patient with acute ischemic stroke with large right LACEY lesion. Plan was for him to go to Acute Rehab. He had a bed offer yesterday but was waiting for MRI cervical spine to be done. He could not tolerate MRI, so CT Cervical spi ne was done instead. However this morning he had seizures witnessed by Neurologist. He was given Ativan iv, Keppra iv, and EEG done. I discussed with sister at bedside, gave update and answered all questions. i also discussed with Neurology and he recommends to transfer to ICU if any more seizures. 04/06/21 Patient with acute ischemic stroke with large right LACEY lesion. Yesterday had partial seizures, started on Ativan , Keppra by Neurology. Now has fever, tachycardia. labs show leukocytosis, ZEUS. Chest X ray shows LLL pneumonia. Started Cefepime and Vanco after cultures. Consult ID. Also consulted Nephrology for acute ZEUS with Cr 1.8. Today, was seen by Neurology and repeat MRI Brain ordered. keep NPO. Changed iv fluid to D51/2NS 04/07/21 Patient with acute ischemic stroke with large right LACEY lesion. Had partial seizures on 04/05, started on Ativan, keppra. No more witnessed seizures. He had fever and CXR showed Pneumonia left base. Now being treated with Cefepime and Vanco for Sepsis. ZEUS improving. He is NPO. Speech therapy to evaluate. When stable will need acute rehab. he had bed offer several days ago but not stable for discharge to rehab yet. I spoke with sister at bedside 2 days ago. 04/08/21. Cont. Keppra andn Ativan. Neuro rreports EEG shows no sign of seizure. Lipitor increased to 80 mg. Cont. ASA and Plavix. Repeat MRI brain pending. PT/OT/ST 04/09/21. ID wants to continue abx x 1 more day. Anticipate d/c in am to [facility]. History Interval history: No new issues overnight. Hospitalist Physical - Constitutional Vitals: Temp Pulse Resp BP Pulse Ox 98.3 F 74 18 136/91 96 04/09/21 03:49 04/09/21 03:49 04/09/21 03:49 04/09/21 03:49 04/09/21 03:49 General appearance: Present: no acute distress, well-nourished - EENT Eyes: Present: PERRL, EOM intact ENT: hearing intact, clear oral mucosa, dentition normal - Neck Neck: Present: supple, normal ROM - Respiratory Respiratory effort: normal Respiratory: bilateral: CTA - Cardiovascular Rhythm: regular Heart Sounds: Present: S1 & S2. Absent: gallop, rub - Extremities Extremities: no ischemia, No edema, Full ROM - Abdominal General gastrointestinal: soft, non-tender, non-distended, normal bowel sounds - Integumentary Integumentary: Present: clear, warm, dry - Neurologic Neurologic: CNII-XII intact, moves all extremities HEART Score - HEART Score Troponin: Troponin T < 0.010 ng/mL (0.00-0.029) 03/30/21 19:58 Results - Labs CBC & Chem 7: 04/08/21 05:09 04/09/21 05:29 Labs: Laboratory Last Values WBC 8.0 K/mm3 (4.5-11.0) 04/08/21 05:09 RBC 4.10 M/mm3 (3.65-5.03) 04/08/21 05:09 Hgb 13.3 gm/dl (11.8-15.2) 04/08/21 05:09 Hct 38.5 % (35.5-45.6) 04/08/21 05:09 MCV 94 fl (84-94) 04/08/21 05:09 MCH 32 pg (28-32) 04/08/21 05:09 MCHC 35 % (32-34) H 04/08/21 05:09 RDW 13.6 % (13.2-15.2) 04/08/21 05:09 Plt Count 239 K/mm3 (140-440) 04/08/21 05:09 Lymph % (Auto) 33.7 % (13.4-35.0) 04/01/21 07:21 [place] % (Auto) 8.0 % (0.0-7.3) H 04/01/21 07:21 Eos % (Auto) 0.3 % (0.0-4.3) 04/01/21 07:21 Baso % (Auto) 0.3 % (0.0-1.8) 04/01/21 07:21 Lymph # (Auto) 3.7 K/mm3 (1.2-5.4) 04/01/21 07:21 [place] # (Auto) 0.9 K/mm3 (0.0-0.8) H 04/01/21 07:21 Eos # (Auto) 0.0 K/mm3 (0.0-0.4) 04/01/21 07:21 Baso # (Auto) 0.0 K/mm3 (0.0-0.1) 04/01/21 07:21 Seg Neutrophils % 57.7 % (40.0-70.0) 04/01/21 07:21 Seg Neutrophils # 6.3 K/mm3 (1.8-7.7) 04/01/21 07:21 ESR 1 mm/Hr (0-20) 04/03/21 02:40 PT 13.6 Sec. (12.2-14.9) 03/31/21 05:11 INR 0.98 (0.87-1.13) 03/31/21 05:11 APTT 27.6 Sec. (24.2-36.6) 03/30/21 19:58 Thrombin Time 18.9 Sec. (15.1-19.6) 03/30/21 19:58 Sodium 140 mmol/L (137-145) 04/09/21 05:29 Potassium 3.7 mmol/L (3.6-5.0) 04/09/21 05:29 Chloride 108.1 mmol/L (98-107) H 04/09/21 05:29 Carbon Dioxide 24 mmol/L (22-30) 04/09/21 05:29 Anion Gap 12 mmol/L 04/09/21 05:29 BUN 17 mg/dL (9-20) 04/09/21 05:29 Creatinine 1.0 mg/dL (0.8-1.3) 04/09/21 05:29 Estimated GFR > 60 ml/min 04/09/21 05:29 BUN/Creatinine Ratio 17 % 04/09/21 05:29 Glucose 105 mg/dL (75-100) H 04/09/21 05:29 POC Glucose 104 mg/dL (70-105) 04/08/21 21:44 Lactic Acid 1.00 mmol/L (0.7-2.0) 04/07/21 09:13 Calcium 8.6 mg/dL (8.4-10.2) 04/09/21 05:29 Phosphorus 3.10 mg/dL (2.5-4.5) 04/07/21 05:24 Magnesium 2.00 mg/dL (1.7-2.3) 04/05/21 14:55 Total Creatine Kinase 2692 units/L (55-170) H 04/09/21 05:29 CK-MB (CK-2) 5.0 ng/mL (0.0-4.0) H 03/30/21 19:58 CK-MB (CK-2) Rel Index 1.0 (0-4) 03/30/21 19:58 Troponin T < 0.010 ng/mL (0.00-0.029) 03/30/21 19:58 Triglycerides 50 mg/dL (2-149) 03/31/21 05:11 Cholesterol 191 mg/dL (50-199) 03/31/21 05:11 LDL Cholesterol Direct 118 mg/dL (50-130) 03/31/21 05:11 HDL Cholesterol 65 mg/dL (40-59) H 03/31/21 05:11 Cholesterol/HDL Ratio 2.93 % 03/31/21 05:11 Vitamin B12 1352 pg/mL (211-911) H 04/02/21 23:53 PTH Intact 92.00 pg/mL (15-65) H 04/07/21 05:24 Urine Color [place] (Yellow) 04/06/21 10:28 Urine Turbidity Clear (Clear) 04/06/21 10:28 Urine pH 5.0 (5.0-7.0) 04/06/21 10:28 Ur Specific [place] 1.032 (1.003-1.030) H 04/06/21 10:28 Urine Protein 100 mg/dl mg/dL (Negative) 04/06/21 10:28 Urine Glucose (UA) Neg mg/dL (Negative) 04/06/21 10:28 Urine Ketones 20 mg/dL (Negative) 04/06/21 10:28 Urine Blood Neg (Negative) 04/06/21 10:28 Urine Nitrite Neg (Negative) 04/06/21 10:28 Urine Bilirubin Sm (Negative) 04/06/21 10:28 Urine Ictotest Negative (Negative) 04/06/21 10:28 Urine Urobilinogen 4.0 mg/dL (<2.0) 04/06/21 10:28 Ur Leukocyte Esterase Neg (Negative) 04/06/21 10:28 Urine WBC (Auto) 5.0 /HPF (0.0-6.0) 04/06/21 10:28 Urine RBC (Auto) 3.0 /HPF (0.0-6.0) 04/06/21 10:28 U Epithel Cells (Auto) 1.0 /HPF (0-13.0) 04/06/21 10:28 Urine Bacteria (Auto) 1+ /HPF (Negative) 04/06/21 10:28 Urine Mucus 1+ /HPF 04/06/21 10:28 Urine Eosinophils None seen (None Seen) 04/06/21 06:51 Urine Creatinine 584.3 mg/dL (0.1-20.0) H 04/07/21 06:51 Urine Microalbumin 16.8 mg/dL (0.1-34.0) 04/07/21 06:51 Microalb/Creat Ratio 28.7 ug/mg 04/07/21 06:51 Protein/Creatinin Ratio 0.14 04/07/21 06:51 Urine Sodium 53 mmol/L 04/07/21 06:51 Urine Total Protein 81 mg/dL (5-11.8) H 04/07/21 06:51 Nasal Screen MRSA (PCR) Negative (Negative) 04/06/21 13:34 Coronavirus (PCR) Negative (Negative) 04/01/21 Unknown Microbiology: Microbiology 04/06/21 10:03 Peripheral/Venous Blood Culture - Preliminary NO GROWTH AFTER 72 HOURS 04/06/21 10:03 Peripheral/Venous Blood Culture - Preliminary NO GROWTH AFTER 72 HOURS 04/06/21 10:28 Urine,[place] Urine Culture - Final Sam/IV: Voiding Method Condom Catheter Active Medications - Current Medications Current Medications: Generic Name Dose Route Start Last Admin Trade Name Freq PRN Reason Stop Dose Admin Acetaminophen 650 mg 03/30/21 22:48 04/08/21 22:15 Acetaminophen 325 Mg Tab PO 650 mg Q4H PRN Administration Pain, Mild (1-3) Aspirin 325 mg 03/31/21 10:00 04/08/21 10:10 Aspirin 325 Mg Tab PO 325 mg QDAY LORI Administration Atorvastatin Calcium 80 mg 04/02/21 22:00 04/08/21 22:15 Atorvastatin 40 Mg Tab PO 80 mg QHS LORI Administration Bisacodyl 10 mg 03/30/21 22:48 Bisacodyl 10 Mg Rect Supp PA QDAY PRN Constipation Clopidogrel Bisulfate 75 mg 04/02/21 10:00 04/08/21 10:10 Clopidogrel 75 Mg Tab PO 75 mg QDAY LORI Administration Heparin Sodium (Porcine) 5,000 unit 03/31/21 06:00 04/09/21 06:02 Heparin 5,000 Unit/1 Ml Vial SUB-Q 5,000 unit Q8HR LORI Administration Hydralazine HCl 10 mg 04/05/21 00:48 04/07/21 09:08 Hydralazine 20 Mg/1 Ml Inj IV 10 mg Q6HR PRN Administration SBP >/=160; DBP >/=100 Levetiracetam 500 mg/ Dextrose 105 mls @ 400 mls/hr 04/05/21 22:00 04/08/21 22:18 IV 400 mls/hr Q12HR LORI Administration Dextrose/Sodium Chloride 1,000 mls @ 75 mls/hr 04/06/21 13:00 04/08/21 18:25 D5/0.45ns IV 75 mls/hr DIRECT LORI Administration Ceftriaxone Sodium 1 gm in 50 mls @ 100 mls/hr 04/08/21 14:00 04/08/21 16:46 Rocephin/Ns 1 Gm/50 Ml IV 04/10/21 13:59 100 mls/hr Q24HR LORI Administration Protocol Lorazepam 2 mg 04/05/21 10:43 04/09/21 09:13 Lorazepam 2 Mg/Ml Vial IV 2 mg Q4H PRN Administration Agitation Magnesium Hydroxide 30 ml 03/30/21 22:48 Magnesium Hydroxide (Mom) Oral Liqd Udc PO Q4H PRN Constipation Metoclopramide HCl 10 mg 03/30/21 22:48 Metoclopramide 10 Mg Tab PO Q6H PRN Nausea And Vomiting Morphine Sulfate 2 mg 03/30/21 22:48 04/05/21 00:19 Morphine 2 Mg/1 Ml Inj IV 2 mg Q4H PRN Administration Pain, Moderate (4-6) Ondansetron HCl 4 mg 03/30/21 22:48 Ondansetron 4 Mg/2 Ml Inj IV Q8H PRN Nausea And Vomiting Promethazine HCl 25 mg 03/30/21 22:48 Promethazine 25 Mg Rect Supp PA Q6H PRN Nausea And Vomiting Sodium Chloride 10 ml 03/31/21 10:00 04/08/21 22:16 Sodium Chloride 0.9% 10 Ml Flush Syringe IV 10 ml BID LORI Administration Sodium Chloride 10 ml 03/30/21 22:48 Sodium Chloride 0.9% 10 Ml Flush Syringe IV PRN PRN LINE FLUSH Nutrition/Malnutrition Assess - Dietary Evaluation Nutrition/Malnutrition Findings: Nutrition Notes Start: 03/31/21 10:46 Freq: Status: Active Protocol: Document 03/31/21 10:46 CALVIN (Rec: 03/31/21 10:49 CALVIN [id number]) Nutrition Notes Need for Assessment generated from: MD Order,Education Initial or Follow up Brief Note Current Diagnosis Coronary Artery Disease, Hypertension,Stroke Current Diet Cardiac Subjective/Other Information MD order for diet education. Gave pt sister Candy heart healthy diet education and talked about reducing amount of sodium in pt diet. 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
[2021-04-09] MEDS: ASPIRIN 325 MG TAB PO SCH (14:00)
[2021-04-09] MEDS: CLOPIDOGREL 75 MG TAB PO SCH (14:00)
[2021-04-09] MEDS: levETIRAcetam 500 MG TAB PO SCH (21:38)
[2021-04-10] MEDS: HEPARIN 5,000 UNIT/1 ML VIAL SUB-Q SCH (06:16)
[2021-04-10] MEDS: D5W/0.45% NACL 1,000 ML IV SCH (06:17)
--- NOTE | 2021-04-10 08:11 | Discharge Summary ---
Providers - Providers Date of Admission: 04/01/21 12:32 Date of discharge: 04/10/21 Attending physician: ELZA GUEVARA 03/30/21 22:48 Consult to Physician [CONS] Routine Comment: Consulting Provider: MACRINA CHEN Physician Instructions: Reason For Exam: CVA 03/30/21 22:49 Consult to Dietitian/Nutrition [CONS] Routine Physician Instructions: Reason For Exam: Reason for Consult: Nutrition Recommendations Reason for Consult: Diet education Occupational Therapy Evaluate and Treat [CONS] Routine Comment: Reason For Exam: Neuro deficits Physical Therapy Evaluation and Treat [CONS] Routine Comment: Reason For Exam: Neuro deficits 03/30/21 22:51 Speech Therapy Evaluation and Treat [CONS] Routine Reason For Exam: swallow eval 04/05/21 21:57 Speech Therapy Evaluation and Treat [CONS] Routine Reason For Exam: difficulty swallowing 04/06/21 08:15 Consult to Physician [CONS] Routine Comment: Consulting Provider: GIL BAL Physician Instructions: Reason For Exam: Fever 04/06/21 08:48 Consult to Physician [CONS] Routine Comment: Consulting Provider: DAVID WILKS Physician Instructions: Reason For Exam: ZEUS, rhabdomyolysis Primary care physician: AASHISH SU Hospitalization Reason for admission: CVA Condition: Stable Hospital course: 60-year-old male with history of multiple strokes with residual right-sided weakness, admitted on 03/31/2021 secondary to acute left-sided weakness associated with headaches. Patient is not the best historian due to aphasia. On arrival, temperature 97.3. Initial WBC 10.5. Initial creatinine 1.4. CT scan of the head shows extensive edema involving the anteromedial right frontal lobe indicative of evolving infarct along the right LACEY distribution. The patient was admitted with diagnosis of acute CVA/right LACEY infarct and acute kidney injury. There is evidence of microvascular angiopathy with multiple old infarcts. No evidence of acute intracranial hemorrhage. CTA of the head and neck reveals occlusion of the distal right ICA and LACEY with evolving infarct. The findings are compatible with occlusion of the proximal right MCA with collateral flow distally. There is marked stenosis involving the left MCA with notable active since collateral vessels. Interventional radiology was consulted at [facility] patient is now a candidate for any surgical intervention. MRI shows large acute right LACEY infarct. Other complications during hospital stay included a new seizure episode and fever at 100-100.7, noted white count up to 12.3. Urinalysis negative. SARS-CoV-2 PCR negative. ID diagnosed the patient with sepsis not present on admission probably secondary to aspiration pneumonia/nosocomial pneumonia. Chest x-ray revealed left basilar airspace opacity. Infectious disease initiated antibiotics with a completion date of today. Detailed daily Hospital course below. 03/31/2021. CT scan of the head shows extensive edema involving the anteromedial right frontal lobe indicative of evolving infarct along the right LACEY distribution. There is evidence of microvascular angiopathy with multiple old infarcts. No evidence of acute intracranial hemorrhage. CTA of the head and neck reveals occlusion of the distal right ICA and LACEY with evolving infarct. The findings are compatible with occlusion of the proximal right MCA with collateral flow distally. There is marked stenosis involving the left MCA with notable active since collateral vessels. Neurology consultation. PT/OT/ST. Continue aspirin and statin. 04/01/2021. Follow-up MRI brain for acute CVA. Continue medications for hypertension. Neurology following. PT/OT/ST. Continue aspirin and statin. 04/02/21 Patient presented with left sided weakness. MRI Brain done, report still pending. Patient has expressive aphasia from previous stroke 04/03/21 Patient had MRI done yesterday confirmed large right LACEY stroke. He is being followed by Neurology. For acute rehab placement. 04/04/21 Patient with acute ischemic stroke with large right LACEY lesion. MRI cervical spine was ordered but after several attempts even with Ativan iv and Haldol iv he could not tolerate so CT Cervical spine ordered instead. 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 04/05/21 Patient with acute ischemic stroke with large right LACEY lesion. Plan was for him to go to Acute Rehab. He had a bed offer yesterday but was waiting for MRI cervical spine to be done. He could not tolerate MRI, so CT Cervical spine was done instead. However this morning he had seizures witnessed by Neurologist. He was given Ativan iv, Keppra iv, and EEG done. I discussed with sister at bedside, gave update and answered all questions. i also discussed with Neurology and he recommends to transfer to ICU if any more seizures. 04/06/21 Patient with acute ischemic stroke with large right LACEY lesion. Yesterday had partial seizures, started on Ativan , Keppra by Neurology. Now has fever, tachycardia. labs show leukocytosis, ZEUS. Chest X ray shows LLL pneumonia. Started Cefepime and Vanco after cultures. Consult ID. Also consulted Nephrology for acute ZEUS with Cr 1.8. Today, was seen by Neurology and repeat MRI Brain ordered. keep NPO. Changed iv fluid to D51/2NS 04/07/21 Patient with acute ischemic stroke with large right LACEY lesion. Had partial seizures on 04/05, started on Ativan, keppra. No more witnessed seizures. He had fever and CXR showed Pneumonia left base. Now being treated with Cefepime and Vanco for Sepsis. ZEUS improving. He is NPO. Speech therapy to evaluate. When stable will need acute rehab. he had bed offer several days ago but not stable for discharge to rehab yet. I spoke with sister at bedside 2 days ago. 04/08/21. Cont. Keppra andn Ativan. Neuro rreports EEG shows no sign of seizure. Lipitor increased to 80 mg. Cont. ASA and Plavix. Repeat MRI brain pending. PT/OT/ST 04/09/21. ID wants to continue abx x 1 more day. Anticipate d/c in [facility]. 04/10/2021. Patient will be discharged to [facility]. Dedicated discharge time 35 minutes. Disposition: [id number] IN REHAB FACILITY Final Discharge Diagnosis (Prints w/discharge instructions): Acute CVA/right LACEY infarct, acute kidney injury, nosocomial/aspiration pneumonia, sepsis Core Measure Documentation - Palliative Care Palliative Care/ Comfort Measures: Not Applicable - Core Measures Any of the following diagnoses?: stroke - Stroke Discharge Requirements Statin for LDL = or >70 mg/dl on DC: Yes Anticoag for atrial fib/atrial flutter: Not Applicable Antithrombotic for ischemic stroke: Yes Exam - Constitutional Vitals: Temp Pulse Resp BP Pulse Ox 97.6 F 62 18 137/88 100 04/10/21 04:03 04/10/21 04:03 04/10/21 04:03 04/10/21 04:03 04/10/21 04:03 General appearance: Present: no acute distress, well-nourished - EENT Eyes: Present: PERRL ENT: hearing intact, clear oral mucosa - Neck Neck: Present: supple, normal ROM - Respiratory Respiratory effort: normal Respiratory: bilateral: CTA - Cardiovascular Heart Sounds: Present: S1 & S2. Absent: rub, click - Extremities Extremities: pulses symmetrical, No edema Peripheral Pulses: within normal limits - Abdominal General gastrointestinal: Present: soft, non-tender, non-distended, normal bowel sounds Male genitourinary: Present: normal - Integumentary Integumentary: Present: clear, warm, dry - Musculoskeletal Musculoskeletal: gait normal, strength equal bilaterally - Psychiatric Psychiatric: appropriate mood/affect, intact judgment & insight - Neurologic Neurologic: CNII-XII intact, moves all extremities Plan Activity: advance as tolerated Weight Bearing Status: Weight Bear as Tolerated Diet: advance as tolerated (Diet per speech therapy instructions.) Follow up with: AASHISH SU MD [Primary Care Provider] - 7 Days
[2021-04-10] MEDS: levETIRAcetam 500 MG TAB PO SCH (09:56)
[2021-04-10] MEDS: cefTRIAXone/NS 1 GM/50 ML 1 GM/50 ML BAG IV SCH (09:56)
[2021-04-10] MEDS: CLOPIDOGREL 75 MG TAB PO SCH (09:56)
[2021-04-10] MEDS: ASPIRIN 325 MG TAB PO SCH (09:56)
[2021-04-10 10:24] VITALS: BP 128/83
== END 2021-04-10 13:30 | DRG 64 ==
LOC: ED 17:54 → 4A 22:31 → OBSVTOIN 04-01 12:32 → INTOOBSV 04-01 12:32
PROVIDERS: ADMIT Internal Medicine Geriatric Medicine; ATTEND Hospitalist
DX: I63.9 Cerebral infarction, unspecified (principal); A41.9 Sepsis, unspecified organism; J69.0 Pneumonitis due to inhalation of food and vomit; N17.9 Acute kidney failure, unspecified; I10 Essential (primary) hypertension; M62.82 Rhabdomyolysis; G81.91 Hemiplegia, unspecified affecting right dominant side; R29.707 NIHSS score 7; Z20.822 Contact with and (suspected) exposure to COVID-19; I25.10 Atherosclerotic heart disease of native coronary artery without angina pectoris; Z87.891 Personal history of nicotine dependence; Z98.61 Coronary angioplasty status; Z79.82 Long term (current) use of aspirin; Z79.899 Other long term (current) drug therapy
CPT/HCPCS: 36415; 70450; 70496; 70498; 70551; 71045; 72125; 74230; 80048; 80061; 81001; 82043; 82140; 82550; 82553; 82570; 82607; 82962; 83735; 83970; 84100; 84156; 84300; 84484; 85025; 85027; 85610; 85652; 85670; 85730; 87040; 87086; 89050; 93005; 93306; 93880; 96374; 96375; G0378; A9270-GY; J0360; J0692; J0696; J1630; J1644; J1885; J1953; J2060; J2270; J3370; J7030; J7040; J7050; Q9967; U0003